=== PATIENT | female | born 1960 | race Native Hawaiian/Other Pacific Islander ===

== ENCOUNTER 2017-03-21 08:05 | Day surgery (SDC) | payer MEDICARE, BC, MEDICAID ==
[2017-03-19 12:29] VITALS: BMI 26.9
[2017-03-21 08:41] LABS: BASO # 0.02 K/mm3 (0.0-2.0); BASO % 0.5 % (0.0-3.0); EOS # 0.2 (0.0-0.7); EOS % 3.5 % (1.5-5.0); GRAN # 2.8 (1.4-6.5); HEMOGLOBIN 11.7 g/dL (12.0-16.0); LYMPH % 23.6 % (22.0-35.0); MEAN CELL VOLUME 99.2 fl (80.0-105.0); MEAN CORPUSCULAR HEMOGLOBIN 31.2 pg (25.0-35.0); MEAN CORPUSCULAR HGB CONC 31.5 g/dl (31.0-37.0); MEAN PLATELET VOLUME 11.6 fl (7.0-11.0); MONO # 0.3 (0.1-0.6); MONO % 6.4 % (1.0-6.0); RBC 3.75 10^6/uL (3.5-6.1); RED CELL DISTRIBUTION WIDTH 15.9 % (11.5-14.5); WHITE BLOOD COUNT 4.2 10^3/ul (4.5-11.0)
[2017-03-21 08:50] LABS: INR 0.95 (0.93-1.08); PROTHROMBIN TIME 10.9 SECONDS (9.4-12.5)
[2017-03-21 08:51] VITALS: RESP 18
[2017-03-21] MEDS ORDERED: Lidocaine 2% Inj (20ml) ONE (09:04)
[2017-03-21] MEDS ORDERED: Midazolam 2 MG/2 ML VIAL ONE ×2 (09:05→10:22)
[2017-03-21] MEDS ORDERED: HEPARIN SODIUM/NS 2,000 ML IV ONE (09:06)
[2017-03-21] MEDS ORDERED: Nitroglycerin 50mg in D5W 50 MG/250 ML BOTTLE IV ONE (09:06)
[2017-03-21 09:10] LABS: CALCIUM 10.2 mg/dL (8.4-10.5)
[2017-03-21 11:46] VITALS: TEMP 97.4
[2017-03-21 12:11] VITALS: BP 141/69; PULSE 60; O2SAT 97
--- NOTE | 2017-03-21 18:55 | VASCULAR ---
PROCEDURE: 1. Left upper extremity AV fistula angiogram. 2. Anus angioplasty HISTORY: End-stage renal disease. Malfunctioning AV access PHYSICIAN(S): Shun Abbott MD. TECHNIQUE: The relative risks and indications of the procedure were explained to the patient and consent obtained. The patient was placed supine on the angiography table and the left arm prepped and draped in usual sterile fashion. Conscious sedation and monitoring provided throughout the procedure by a nurse. A preliminary sonography of the anastomosis was performed. Revealed a widely patent left radial-cephalic anastomosis. The left arm AV fistula was punctured near the wrist in an antegrade direction under ultrasound guidance with a micropuncture set. A 5 Grenadian catheter was placed. An overlapping left upper extremity AV fistula angiogram was performed. Central venous imaging was obtained. A 6 Grenadian sheath was placed at the puncture site. The stenoses within the left cephalic vein stents were easily crossed with a 0.035 glidewire. Exchange is made for 0.035 Clark wire. The stenoses in the left cephalic vein within the stents and left forearm were dilated with an 8 mm balloon. A good angiographic result was obtained. The sheath was removed and hemostasis obtained. FINDINGS: The left distal radial anastomosis is patent on duplex sonography. Two pseudoaneurysm seen in the proximal left cephalic vein near the wrist. Overlapping stents are noted left cephalic vein in the forearm. Significant stenoses within the stent and at the distal end of the stent are noted. Fistula drains via the left basilic veins. The left cephalic vein is small in the upper arm. Central veins are widely patent. IMPRESSION: 1. Recurrent stenoses within the stents in the left forearm. 2. Successful dilatation with 8 mm balloons. No additional stents were needed 3. Widely patent central veins. 4. Widely patent anastomosis by ultrasound evaluation
== END 2017-03-21 12:20 | disposition home or self-care (01) ==
LOC: SDSVAS 08:05
PROVIDERS: ATTEND Radiology Vascular & Interventional Radiology
DX: T82.856A Stenosis of peripheral vascular stent, initial encounter (principal); I13.2 Hypertensive heart and chronic kidney disease with heart failure and with stage 5 chronic kidney disease, or end stage renal disease; N18.6 End stage renal disease; I50.9 Heart failure, unspecified; E07.9 Disorder of thyroid, unspecified; Y84.8 Other medical procedures as the cause of abnormal reaction of the patient, or of later complication, without mention of misadventure at the time of the procedure
CPT/HCPCS: 36415; 36902; 80048; 85025; 85610; 85730; 99152; C1725; C1769 ×2; C1894; J1644 ×2; J2250; J2405; J3010; J7040

== ENCOUNTER 2017-06-17 12:13 | Emergency (ER) | payer MEDICARE, MEDICAID ==
[2017-06-17 13:11] VITALS: BMI 26.6
[2017-06-17 13:16] VITALS: RESP 18; TEMP 98
--- NOTE | 2017-06-17 13:44 | ED PDOC ---
Arrival/HPI - General Chief Complaint: Headache Time Seen by Provider: 06/17/17 12:15 Historian: Patient - History of Present Illness Narrative History of Present Illness (Text): 06/17/17 13:38 57yo female with PMhx of ESRD, hypertension who present with complaint of right sided occipital headache x one week. States headache is temporary relieved with Tylenol at home. She denies photophobia, dizziness, focal weakness, nausea, vomiting, focal weakness, slurred speech, visual changes, any other complaint. Past Medical History - Provider Review Nursing Documentation Reviewed: Yes - Infectious Disease Hx of Infectious Diseases: None - Tetanus Immunization Tetanus Immunization: Unknown - Reproductive Menopause: Yes - Cardiac Hx Pacemaker: No - Pulmonary Hx Respiratory Disorders: No - Neurological Hx Paralysis: No - HEENT Hx HEENT Disorder: No - Renal Hx Renal Disorder: Yes Hx Dialysis: Yes Date of Last Dialysis Treatment: 06/17/17 - Endocrine/Metabolic Hx Endocrine Disorders: No - Hematological/Oncological Hx Blood Transfusions: No Hx Blood Transfusion Reaction: No - Integumentary Hx Dermatological Disorder: No - Musculoskeletal/Rheumatological Hx Musculoskeletal Disorders: No - Gastrointestinal Hx Gastrointestinal Disorders: No - Genitourinary/Gynecological Hx Genitourinary Disorders: No - Psychiatric Hx Emotional Abuse: No Hx Physical Abuse: No Hx Substance Use: No - Anesthesia Hx Anesthesia Reactions: No Hx Malignant Hyperthermia: No - Suicidal Assessment Feels Threatened In Home Enviroment: No Family/Social History - Physician Review Nursing Documentation Reviewed: Yes Family/Social History: Unknown Family HX Smoking Status: Never Smoked Hx Alcohol Use: No Hx Substance Use: No Allergies/Home Meds Allergies/Adverse Reactions: Allergies No Known Allergies Allergy (Verified 05/09/15 09:02) Home Medications: Home Meds Medication Instructions Recorded Confirmed Metoprolol Tartrate 25 mg PO DAILY 05/09/15 06/17/17 Ezetimibe/Simvastatin [Vytorin 10 - 40 mg PO DAILY 03/08/16 06/17/17 10-40 mg Tablet] Folic Acid 1 mg PO DAILY 03/08/16 06/17/17 Levothyroxine Sodium [Unithroid] 75 mcg PO DAILY 03/08/16 06/17/17 hydrALAZINE [Apresoline] 10 mg PO TID 03/08/16 06/17/17 Ergocalciferol (Vitamin D2) 50,000 unit PO SAT 03/19/17 06/17/17 [Vitamin D2] Lisinopril [Zestril] 10 mg PO DAILY 03/19/17 06/17/17 Calcium Acetate [Phoslo] 667 mg PO TID 06/17/17 06/17/17 Review of Systems - Physician Review All systems were reviewed & negative as marked: Yes - Review of Systems Constitutional: Normal Eyes: Normal ENT: Normal Respiratory: Normal Cardiovascular: Normal Gastrointestinal: Normal Genitourinary Female: Normal Musculoskeletal: Normal Skin: Normal Neurological: Headache. absent: Dizziness, Focal Weakness Endocrine: Normal Hemo/Lymphatic: Normal Psychiatric: Normal Physical Exam Vital Signs Reviewed: Yes Vital Signs Temp Pulse Resp BP Pulse Ox 06/17/17 14:51 66 18 139/63 99 06/17/17 13:15 98.0 F 68 18 162/96 H 100 Temperature: Afebrile Blood Pressure: Normal Pulse: Regular Respiratory Rate: Normal Appearance: Positive for: Well-Appearing, Non-Toxic, Comfortable Pain Distress: None Mental Status: Positive for: Alert and Oriented X 3 - Systems Exam Head: Present: Atraumatic, Normocephalic Pupils: Present: PERRL Extroacular Muscles: Present: EOMI Conjunctiva: Present: Normal Mouth: Present: Moist Mucous Membranes Neck: Present: Normal Range of Motion Respiratory/Chest: Present: Clear to Auscultation, Good Air Exchange. No: Respiratory Distress, Accessory Muscle Use Cardiovascular: Present: Regular Rate and Rhythm, Normal S1, S2. No: Murmurs Abdomen: No: Tenderness, Distention, Peritoneal Signs Back: Present: Normal Inspection Upper Extremity: Present: Normal Inspection. No: Cyanosis, Edema Lower Extremity: Present: Normal Inspection. No: Edema Neurological: Present: GCS=15, CN II-XII Intact, Speech Normal, Motor Func Grossly Intact, Normal Sensory Function, Normal Cerebellar Funct, Norm Deep Tendon Reflexes, Gait Normal, Memory Normal, Normal 2Pt Descrimination, Other Skin: Present: Warm, Dry, Normal Color. No: Rashes Psychiatric: Present: Alert, Oriented x 3, Normal Insight, Normal Concentration Medical Decision Making ED Course and Treatment: 06/17/17 19:27 PT in ED for stated history. She was neurologically intact and hemodynamically stable in ED. she was noted laughing with her daughter. Head CT - Negative Result was DW the pt and she was re referred to Neuro. - RAD Interpretation Radiology Orders: 06/17/17 13:10 HEAD W/O CONTRAST [CT] Stat - Medication Orders Current Medication Orders: Discontinued Medications Acetaminophen (Tylenol 325mg Tab) 650 mg PO STAT STA Stop: 06/17/17 13:11 Last Admin: 06/17/17 13:32 Dose: 650 mg [facility] Pain/Vitals Document 06/17/17 13:32 SZA (Rec: 06/17/17 13:32 SZA [id number]) Pain Reassessment Is This A Pain ReAssessment? No Sleep Is patient sleeping during reassessment? No Presence of Pain Presence of Pain Yes Pain Scale Used Pain Scale Used Numeric Location Intensity 8 Scale Used Numeric Re-Assess: [facility] Pain/Vitals Document 06/17/17 14:32 SZA (Rec: 06/17/17 14:54 SZA [id number]) Pain Reassessment Is This A Pain ReAssessment? Yes Sleep Is patient sleeping during reassessment? Yes Pain Scale Used Pain Scale Used Numeric Location Intensity 3 Scale Used Numeric Disposition/Present on Arrival - Present on Arrival Any Indicators Present on Arrival: No History of DVT/PE: No History of Uncontrolled Diabetes: No Urinary Catheter: No History of Decub. Ulcer: No History Surgical Site Infection Following: None - Disposition Have Diagnosis and Disposition been Completed?: Yes Diagnosis: Headache Disposition: HOME/ ROUTINE Disposition Time: 14:10 Patient Plan: Discharge Condition: STABLE Discharge Instructions (ExitCare): Headache, Adult Additional Instructions: Follow up with your doctor/Neurologist Return to ED for any new or worsening symptoms Referrals: Jose Dobbs MD [Primary Care Provider] - Follow up with primary Jameson Araujo MD [Staff Provider] - Follow up with primary Forms: [employer] (Spanish)
--- NOTE | 2017-06-17 14:05 | CT ---
PROCEDURE: CT HEAD WITHOUT CONTRAST. HISTORY: headache COMPARISON: None available. TECHNIQUE: Axial computed tomography images were obtained through the head/brain without intravenous contrast. Radiation dose: Total exam DLP = 865 mGy-cm. This CT exam was performed using one or more of the following dose reduction techniques: Automated exposure control, adjustment of the mA and/or kV according to patient size, and/or use of iterative reconstruction technique. FINDINGS: HEMORRHAGE: No intracranial hemorrhage. BRAIN: No mass effect or edema. No atrophy or chronic microvascular ischemic changes. VENTRICLES: Unremarkable. No hydrocephalus. CALVARIUM: Unremarkable. PARANASAL SINUSES: Unremarkable as visualized. No significant inflammatory changes. MASTOID AIR CELLS: Unremarkable as visualized. No inflammatory changes. OTHER FINDINGS: None. IMPRESSION: No acute findings
[2017-06-17 14:52] VITALS: BP 139/63; PULSE 66; O2SAT 99
== END 2017-06-17 14:56 | disposition home or self-care (01) ==
LOC: ED 12:13
DX: R51 Headache (principal); I12.0 Hypertensive chronic kidney disease with stage 5 chronic kidney disease or end stage renal disease; N18.6 End stage renal disease; Z99.2 Dependence on renal dialysis

== ENCOUNTER 2017-09-22 20:20 | Emergency (ER) | payer MEDICARE, MEDICAID ==
[2017-09-22 20:21] VITALS: BMI 26.6
--- NOTE | 2017-09-22 20:24 | ED PDOC ---
Arrival/HPI - General Time Seen by Provider: 09/22/17 20:23 Historian: Patient - History of Present Illness Narrative History of Present Illness (Text): 09/22/17 20:50 57 year old female, whose PMH includes hypertension and renal disorder (on dialysis M,W,F), who presents to the emergency department complaining of shortness of breath since 2 days. Patient reports she used to get dialysis at [facility] where they would give a dose of 2.5 L and now with the new company it has changed to 1.5 L. Patient reports this has given her intermittent trouble breathing. Patient denies chest pain, dizziness, hematuriam , abdominal pain, nausea, vomiting, diarrhea, or other complaints. PMD: Dr. Dobbs Urologist: Dr. Dahl Time/Duration: < week Symptom Onset: Gradual Symptom Course: Unchanged Context: Home Past Medical History - Provider Review Nursing Documentation Reviewed: Yes - Infectious Disease Hx of Infectious Diseases: None - Tetanus Immunization Tetanus Immunization: Unknown - Cardiac Hx Pacemaker: No - Pulmonary Hx Respiratory Disorders: No - Neurological Hx Paralysis: No - HEENT Hx HEENT Disorder: No - Renal Hx Renal Disorder: Yes Hx Dialysis: Yes Date of Last Dialysis Treatment: 06/17/17 - Endocrine/Metabolic Hx Endocrine Disorders: No - Hematological/Oncological Hx Blood Transfusions: No Hx Blood Transfusion Reaction: No - Integumentary Hx Dermatological Disorder: No - Musculoskeletal/Rheumatological Hx Musculoskeletal Disorders: No - Gastrointestinal Hx Gastrointestinal Disorders: No - Genitourinary/Gynecological Hx Genitourinary Disorders: No - Psychiatric Hx Emotional Abuse: No Hx Physical Abuse: No Hx Substance Use: No - Anesthesia Hx Anesthesia Reactions: No Hx Malignant Hyperthermia: No - Suicidal Assessment Feels Threatened In Home Enviroment: No Family/Social History - Physician Review Nursing Documentation Reviewed: Yes Family/Social History: Unknown Family HX Smoking Status: Never Smoked Hx Alcohol Use: No Hx Substance Use: No Allergies/Home Meds Allergies/Adverse Reactions: Allergies No Known Allergies Allergy (Verified 09/22/17 20:30) Home Medications: Home Meds Medication Instructions Recorded Confirmed Metoprolol Tartrate 25 mg PO DAILY 05/09/15 09/22/17 Ezetimibe/Simvastatin [Vytorin 10 - 40 mg PO DAILY 03/08/16 09/22/17 10-40 mg Tablet] Folic Acid 1 mg PO DAILY 03/08/16 09/22/17 Levothyroxine Sodium [Unithroid] 75 mcg PO DAILY 03/08/16 09/22/17 hydrALAZINE [Apresoline] 10 mg PO TID 03/08/16 09/22/17 Ergocalciferol (Vitamin D2) 50,000 unit PO SAT 03/19/17 09/22/17 [Vitamin D2] Lisinopril [Zestril] 10 mg PO DAILY 03/19/17 09/22/17 Calcium Acetate [Phoslo] 667 mg PO TID 06/17/17 09/22/17 Review of Systems - Review of Systems Constitutional: absent: Fevers ENT: absent: Sinus Congestion Respiratory: SOB. absent: Cough Cardiovascular: absent: Chest Pain Gastrointestinal: absent: Abdominal Pain, Vomiting Genitourinary Female: absent: Dysuria, Hematuria Musculoskeletal: absent: Back Pain Skin: absent: Rash Neurological: absent: Headache, Dizziness Endocrine: absent: Diaphoresis Physical Exam Vital Signs Reviewed: Yes Vital Signs Temp Pulse Resp BP Pulse Ox 09/22/17 21:45 69 18 173/88 H 98 09/22/17 21:05 178/81 H 09/22/17 20:25 98.7 F 113 H 19 178/81 H 98 Temperature: Afebrile Blood Pressure: Hypertensive Pulse: Tachycardic Respiratory Rate: Normal Appearance: Positive for: Well-Appearing, Non-Toxic, Comfortable Pain Distress: None Mental Status: Positive for: Alert and Oriented X 3 - Systems Exam Head: Present: Atraumatic, Normocephalic Pupils: Present: PERRL Extroacular Muscles: Present: EOMI Conjunctiva: Present: Normal Respiratory/Chest: Present: Rales (trace of crackles at the bases ). No: Clear to Auscultation, Respiratory Distress, Accessory Muscle Use, Decreased Breath Sounds, Retracting, Rhonchi Cardiovascular: Present: Regular Rate and Rhythm, Normal S1, S2. No: Murmurs Abdomen: Present: Normal Bowel Sounds. No: Tenderness, Distention, Peritoneal Signs, Rebound, Guarding Upper Extremity: Present: Normal Inspection, Normal ROM, Other (LT arm good thrill and bruit for fistula ). No: Cyanosis, Edema Neurological: Present: GCS=15, CN II-XII Intact, Speech Normal Skin: Present: Warm, Dry, Normal Color. No: Rashes Psychiatric: Present: Alert, Oriented x 3, Normal Insight, Normal Concentration Medical Decision Making ED Course and Treatment: 09/22/17 Impression: 57 year old female with trace of crackles at the bases and LT arm good thrill and bruit for fistula complaining of shortness of breath s/p change in dialysis. Differential Diagnosis included but are not limited to: fluid overload Plan: -- EKG -- Chest X-ray -- Labs -- Lasix -- Reassess and disposition Progress Notes: EKG: Ordered, reviewed, and independently interpreted the EKG. Rate : 75 BPM Rhythm : NSR Interpretation : diffused T-wave inversion. No difference from previous EKG Comparison : 03/08/16 09/22/17 21:45 CXR with pulmonary congestion and pleural effusions. Labs and Xray results discussed with patient and daughter. The patient does not want to be transferred to [facility] and instead has decided to get dialysis tomorrow. Patient declines admission, and wishes to leave the Emergency Department. This action is against my medical advice to the patient and the decision was made with informed refusal. The patient was told that admission is necessary and a full explanation of the rationale was given. The risks of leaving were explained to the patient and include, but are not limited to, worsening of known or currently unknown conditions, permanent disability and from undiagnosed or untreated conditions The patient has the capacity to make this informed decision and understands the clinical situation and my explanation of the risks of leaving. The patient voluntarily accepts these risks, and a signed AMA form documenting our conversation was obtained. The patient was given the opportunity to ask questions and reconsider. The patient was encouraged to return to the Emergency Department at any time for further care. - Lab Interpretations Lab Results: 09/22/17 20:55 09/22/17 20:55 Lab Results 09/22/17 20:55: Sodium 140, Potassium 5.3 H, Chloride 101, Carbon Dioxide 28, Anion Gap 16, BUN 64 H, Creatinine 8.6 H* D, Est GFR ( Amer) 6, Est GFR ( Non-Af Amer) 5, Random Glucose 148 H, Calcium 10.3, Magnesium 3.8 H, Total Bilirubin 0.6, AST 26, ALT 33, Alkaline Phosphatase 76, Lactate Dehydrogenase 373, Total Creatine Kinase 45, Troponin I 0.03, NT-Pro-B Natriuret Pep 50147 H, Total Protein 5.7 L, Albumin 3.3, Globulin 2.4, Albumin/Globulin Ratio 1.4 09/22/17 20:55: WBC 5.5 D, RBC 3.18 L, Hgb 9.9 L, Hct 31.4 L, MCV 98.7, MCH 31.1, MCHC 31.5, RDW 16.1 H, Plt Count 131, MPV 11.4 H, Gran % 75.5 H, Lymph % ( Auto) 14.4 L, Wood % (Auto) 7.9 H, Eos % (Auto) 2.0, Baso % (Auto) 0.2, Gran # 4.13, Lymph # (Auto) 0.8 L, Wood # (Auto) 0.4, Eos # (Auto) 0.1, Baso # (Auto) 0.01 I have reviewed the lab results: Yes - RAD Interpretation Radiology Orders: 09/22/17 20:52 CHEST PORTABLE [RAD] Stat Boiler Or Engine Operator: Radiologist - EKG Interpretation Interpreted by ED Physician: Yes Type: 12 lead EKG - Medication Orders Current Medication Orders: Discontinued Medications Furosemide (Lasix) 40 mg IVP STAT STA Stop: 09/22/17 20:53 Last Admin: 09/22/17 21:05 Dose: 40 mg MAR Blood Pressure Document 09/22/17 21:05 CNR (Rec: 09/22/17 21:06 CNR [id number]) Blood Pressure Blood Pressure (100/60-150/90) 178/81 IVP Administration Document 09/22/17 21:05 CNR (Rec: 09/22/17 21:06 CNR [id number]) Charges for Administration # of IVP Administrations 1 - Scribe Statement The provider has reviewed the documentation as recorded by the Jacinto Dela Cruz Provider Scribe Attestation: All medical record entries made by the Scribe were at my direction and personally dictated by me. I have reviewed the chart and agree that the record accurately reflects my personal performance of the history, physical exam, medical decision making, and the department course for this patient. I have also personally directed, reviewed, and agree with the discharge instructions and disposition. Disposition/Present on Arrival - Present on Arrival Any Indicators Present on Arrival: No History of DVT/PE: No History of Uncontrolled Diabetes: No Urinary Catheter: No History Surgical Site Infection Following: None - Disposition Have Diagnosis and Disposition been Completed?: Yes Diagnosis: ESRD needing dialysis Disposition: AGAINST MEDICAL ADVICE Disposition Time: 22:00 Patient Plan: Other Condition: GOOD Discharge Instructions (ExitCare): End Stage Kidney Disease (DC) Additional Instructions: ELIAS CHAVARRIA, thank you for letting us take care of you today. Your provider was Bruce Montiel DO and you were treated for TROUBLE BREATHING. The emergency medical care you received today was directed at your acute symptoms. If you were prescribed any medication, please fill it and take as directed. It may take several days for your symptoms to resolve. Return to the Emergency Department if your symptoms worsen, do not improve, or if you have any other problems. Please contact your doctor or call one of the physicians/clinics you have been referred to that are listed on the Patient Visit Information form that is included in your discharge packet. Bring any paperwork you were given at discharge with you along with any medications you are taking to your follow up visit. Our treatment cannot replace ongoing medical care by a primary care provider outside of the emergency department. Thank you for allowing the [facility] team to be part of your care today. If you had an X-Ray or CT scan: A Radiologist will review the ED reading if any change in treatment is needed we will contact you. If you had a blood, urine, or wound culture: It will take several days for the results, if any change in treatment is needed we will contact you. If you had an STI test: It will take 48 hours for the results. Please call after 1 week if you have not heard back. Referrals: Deisy Tidwell MD [Staff Provider] - Follow up with primary Jose Dobbs MD [Staff Provider] - Follow up with primary Forms: [employer] (Chilean)
[2017-09-22 20:30] VITALS: TEMP 98.7; O2SAT 98
[2017-09-22 21:11] LABS: BASO # 0.01 K/mm3 (0.0-2.0); BASO % 0.2 % (0.0-3.0); EOS # 0.1 (0.0-0.7); GRAN # 4.13 (1.4-6.5); GRAN % 75.5 % (50.0-68.0); HEMOGLOBIN 9.9 g/dL (12.0-16.0); LYMPH # 0.8 (1.2-3.4); LYMPH % 14.4 % (22.0-35.0); MEAN CELL VOLUME 98.7 fl (80.0-105.0); MEAN CORPUSCULAR HEMOGLOBIN 31.1 pg (25.0-35.0); MEAN CORPUSCULAR HGB CONC 31.5 g/dl (31.0-37.0); MEAN PLATELET VOLUME 11.4 fl (7.0-11.0); MONO # 0.4 (0.1-0.6); MONO % 7.9 % (1.0-6.0); RBC 3.18 10^6/uL (3.5-6.1); RED CELL DISTRIBUTION WIDTH 16.1 % (11.5-14.5); WHITE BLOOD COUNT 5.5 10^3/ul (4.5-11.0)
[2017-09-22 21:37] LABS: TROPONIN I 0.03 ng/mL
[2017-09-22 21:39] LABS: ALB/GLOB RATIO 1.4 (1.1-1.8); ALBUMIN 3.3 g/dL (3.0-4.8); CALCIUM 10.3 mg/dL (8.4-10.5)
[2017-09-22 21:47] VITALS: BP 173/88; PULSE 69; RESP 18
--- NOTE | 2017-09-23 08:28 | CARD ---
APPROVED REPORT EKG Measurement Heart [id number] <Conclusion> Normal sinus rhythm LVH IVCD STTW changes c/w ischemia Prolonged QTc Less ST depression c/w ECG 03/08/16
--- NOTE | 2017-09-23 10:17 | RAD ---
HISTORY: esrd/sob COMPARISON: No prior. FINDINGS: Study is slightly limited by patient rotation to the right LUNGS: Mild pulmonary venous congestive changes felt present likely due to fluid overload given the patient's history of ESRD. There are also small bilateral effusions PLEURA: As above. No pneumothorax apparent. CARDIOVASCULAR: Heart appears enlarged. Aorta ectatic and uncoiled. OSSEOUS STRUCTURES: No significant abnormalities. VISUALIZED UPPER ABDOMEN: Normal. OTHER FINDINGS: None. IMPRESSION: Mild pulmonary venous congestive changes felt present likely due to fluid overload given the patient's history of ESRD. There are also small bilateral effusions
== END 2017-09-22 22:03 | disposition left against medical advice (07) ==
LOC: ED 20:20
DX: I12.0 Hypertensive chronic kidney disease with stage 5 chronic kidney disease or end stage renal disease (principal); N18.6 End stage renal disease; Z99.2 Dependence on renal dialysis
CPT/HCPCS: 71045; 80053; 82550; 83615; 83735; 83880; 84484; 85025; 93005; 96374; 99284; J1940

== ENCOUNTER 2017-10-28 09:09 | Inpatient (IN) | payer MEDICARE, MEDICAID ==
--- NOTE | 2017-10-28 09:55 | ED PDOC ---
Arrival/HPI - General Chief Complaint: Shortness Of Breath Time Seen by Provider: 10/28/17 09:20 Historian: Patient - History of Present Illness Narrative History of Present Illness (Text): 10/28/17 09:52 57-year-old female with a history of hypertension and end-stage renal disease on dialysis(M,W,F) presents today with generalized fatigue and shortness of breath when laying flat. Patient states that she has been having a dry cough for about a month now and was seen by her primary care physician and had a chest x-ray recently. Patient denies fevers or chills at home. Patient states she completed dialysis today and then came to the emergency room for evaluation. Patient states after dialysis she feels as if her breathing has improved. She is complaining of some upper back pain. She denies chest pain. Patient denies shortness of breath with ambulation. Patient denies abdominal pain. No nausea or vomiting. She denies dizziness. Patient states she feels as if she's been losing weight recently. No other complaints Time/Duration: Other (1 month of cough ) Symptom Onset: Gradual Symptom Course: Worsening Quality: Aching Past Medical History - Provider Review Nursing Documentation Reviewed: Yes - Travel History Have you recently traveled outside [place] w/in the past 3 mons?: No - Infectious Disease Hx of Infectious Diseases: None - Tetanus Immunization Tetanus Immunization: Unknown - Cardiac Hx Hypertension: Yes Hx Pacemaker: No - Pulmonary Hx Respiratory Disorders: No - Neurological Hx Paralysis: No - HEENT Hx HEENT Disorder: No - Renal Hx Renal Disorder: Yes Hx Dialysis: Yes (MWF) Date of Last Dialysis Treatment: 06/17/17 - Endocrine/Metabolic Hx Endocrine Disorders: No - Hematological/Oncological Hx Blood Transfusions: No Hx Blood Transfusion Reaction: No - Integumentary Hx Dermatological Disorder: No - Musculoskeletal/Rheumatological Hx Musculoskeletal Disorders: No - Gastrointestinal Hx Gastrointestinal Disorders: No - Genitourinary/Gynecological Hx Genitourinary Disorders: No - Psychiatric Hx Emotional Abuse: No Hx Physical Abuse: No Hx Substance Use: No - Surgical History Hx Arteriovenous Shunt: Yes (left arm) Other/Comment: abd sx 2006 - Anesthesia Hx Anesthesia: Yes Hx Anesthesia Reactions: No Hx Malignant Hyperthermia: No - Suicidal Assessment Feels Threatened In Home Enviroment: No Family/Social History - Physician Review Nursing Documentation Reviewed: Yes Family/Social History: Unknown Family HX Smoking Status: Never Smoked Hx Alcohol Use: No Hx Substance Use: No Allergies/Home Meds Allergies/Adverse Reactions: Allergies No Known Allergies Allergy (Verified 09/22/17 20:30) Home Medications: Home Meds Medication Instructions Recorded Confirmed Metoprolol Tartrate 25 mg PO DAILY 05/09/15 10/28/17 Ezetimibe/Simvastatin [Vytorin 10 - 40 mg PO DAILY 03/08/16 10/28/17 10-40 mg Tablet] Folic Acid 1 mg PO DAILY 03/08/16 10/28/17 Levothyroxine Sodium [Unithroid] 75 mcg PO DAILY 03/08/16 10/28/17 hydrALAZINE [Apresoline] 10 mg PO TID 03/08/16 10/28/17 Ergocalciferol (Vitamin D2) 50,000 unit PO SAT 03/19/17 10/28/17 [Vitamin D2] Lisinopril [Zestril] 10 mg PO DAILY 03/19/17 10/28/17 Calcium Acetate [Phoslo] 667 mg PO TID 06/17/17 10/28/17 Review of Systems - Review of Systems Constitutional: Fatigue. absent: Fevers Respiratory: SOB, Cough. absent: Sputum, Wheezing Cardiovascular: absent: Chest Pain, Palpitations Gastrointestinal: absent: Abdominal Pain, Constipation, Diarrhea, Nausea, Vomiting Musculoskeletal: Back Pain. absent: Arthralgias, Neck Pain Skin: absent: Rash, Pruritis Neurological: absent: Headache, Dizziness Psychiatric: absent: Anxiety, Depression Physical Exam Vital Signs Reviewed: Yes Vital Signs Temp Pulse Resp BP Pulse Ox 10/28/17 11:26 74 18 156/84 H 96 10/28/17 09:30 20 97 10/28/17 09:10 98.4 F 69 20 152/78 H 95 Temperature: Afebrile Blood Pressure: Normal Pulse: Regular Respiratory Rate: Normal Appearance: Positive for: Well-Appearing, Non-Toxic, Comfortable Pain Distress: None Mental Status: Positive for: Alert and Oriented X 3 - Systems Exam Head: Present: Atraumatic Mouth: Present: Moist Mucous Membranes Neck: Present: Normal Range of Motion Respiratory/Chest: Present: Good Air Exchange, Decreased Breath Sounds. No: Clear to Auscultation, Respiratory Distress, Accessory Muscle Use Cardiovascular: Present: Regular Rate and Rhythm. No: Tachycardic Abdomen: No: Tenderness, Distention, Rebound, Guarding Back: Present: Normal Inspection. No: Midline Tenderness, Paraspinal Tenderness Lower Extremity: Present: Normal ROM. No: Edema Neurological: Present: GCS=15, Speech Normal Skin: Present: Warm, Dry, Normal Color. No: Rashes Psychiatric: Present: Alert, Oriented x 3 Medical Decision Making ED Course and Treatment: 10/28/17 10:00 57yr old female with ESRD on dialysis with cough x 1 month with fatigue and SOB while laying flat. cbc wnl cmp wnl trop 0.04 ekg; normal sinus rhythm at [address] elevations normal axis and QTC 510 cxr: cardiomegaly with worsening chf 10/28/17 11:[address] calix who saw patient at bedside. case discussed with dr. grewal; will dialyze again tomorrow Patient reassessment: Patient resting comfortably in the emergency room with stable vital signs. In no acute distress all aspects of this case were discussed the attending of record. Impression: CHF, end-stage renal disease on dialysis Admitted to telemetry - Lab Interpretations Lab Results: 10/28/17 09:50 10/28/17 09:50 Lab Results 10/28/17 09:50: WBC 5.4, RBC 3.55, Hgb 11.0 L, Hct 34.6 L, MCV 97.5, MCH 31.0, MCHC 31.8, RDW 16.2 H, Plt Count 130, MPV 11.9 H, Gran % 71.4 H, Lymph % (Auto) 18.2 L, Chase % (Auto) 5.4, Eos % (Auto) 4.8, Baso % (Auto) 0.2, Gran # 3.85, Lymph # (Auto) 1.0 L, Chase # (Auto) 0.3, Eos # (Auto) 0.3, Baso # (Auto) 0.01 10/28/17 09:50: Sodium 138, Potassium 3.6, Chloride 95 L, Carbon Dioxide 37 H, Anion Gap 9 L, BUN 11, Creatinine 3.0 H, Est GFR ( Amer) 19, Est GFR (Non -Af Amer) 16, Random Glucose 94, Calcium 9.5, Total Bilirubin 0.8, AST 29, ALT 33, Alkaline Phosphatase 105, Lactate Dehydrogenase 442, Total Creatine Kinase 40, Troponin I 0.04 D, Total Protein 6.1, Albumin 3.6, Globulin 2.6, Albumin/ Globulin Ratio 1.4 - RAD Interpretation Radiology Orders: 10/28/17 09:39 CHEST PORTABLE [RAD] Stat Disposition/Present on Arrival - Present on Arrival Any Indicators Present on Arrival: No History of DVT/PE: No History of Uncontrolled Diabetes: No Urinary Catheter: No History of Decub. Ulcer: No History Surgical Site Infection Following: None - Disposition Have Diagnosis and Disposition been Completed?: Yes Diagnosis: CHF (congestive heart failure), ESRD (end stage renal disease) on dialysis Disposition: HOME/ ROUTINE Disposition Time: 11:41 Patient Plan: Admission Condition: FAIR Discharge Instructions (ExitCare): Heart Failure (ED) Referrals: Jose Calix MD [Primary Care Provider] - Follow up with primary Forms: [employer] (Ugandan)
[2017-10-28 10:03] LABS: BASO # 0.01 K/mm3 (0.0-2.0); BASO % 0.2 % (0.0-3.0); EOS # 0.3 (0.0-0.7); EOS % 4.8 % (1.5-5.0); GRAN # 3.85 (1.4-6.5); GRAN % 71.4 % (50.0-68.0); LYMPH % 18.2 % (22.0-35.0); MEAN CELL VOLUME 97.5 fl (80.0-105.0); MEAN CORPUSCULAR HGB CONC 31.8 g/dl (31.0-37.0); MEAN PLATELET VOLUME 11.9 fl (7.0-11.0); MONO # 0.3 (0.1-0.6); MONO % 5.4 % (1.0-6.0); RBC 3.55 10^6/uL (3.5-6.1); RED CELL DISTRIBUTION WIDTH 16.2 % (11.5-14.5); WHITE BLOOD COUNT 5.4 10^3/ul (4.5-11.0)
[2017-10-28 10:13] LABS: ALB/GLOB RATIO 1.4 (1.1-1.8); ALBUMIN 3.6 g/dL (3.0-4.8); CALCIUM 9.5 mg/dL (8.4-10.5)
[2017-10-28 10:24] LABS: TROPONIN I 0.04 ng/mL
--- NOTE | 2017-10-28 10:58 | RAD ---
Date of service: 10/28/2017 HISTORY: cough/sob/fatigue COMPARISON: 10/25/2017. FINDINGS: LUNGS: Progressive pulmonary vascular congestion. PLEURA: No significant pleural effusion identified, no pneumothorax apparent. CARDIOVASCULAR: Cardiomegaly. OSSEOUS STRUCTURES: No significant abnormalities. VISUALIZED UPPER ABDOMEN: Normal. OTHER FINDINGS: None. IMPRESSION: Cardiomegaly, worsening CHF.
[2017-10-28] MEDS ORDERED: Levothyroxine 75 MCG TAB PO SCH (12:00)
[2017-10-28] MEDS: Enoxaparin 30 mg Syringe SC SCH (12:20)
[2017-10-28 12:23] LABS: HDL CHOLESTEROL 69 mg/dL (29-60); INR 0.98; PARTIAL THROMBOPLASTIN TIME 32.6 Seconds (25.1-36.5); PROTHROMBIN TIME 11.3 SECONDS (9.4-12.5)
[2017-10-28 12:34] LABS: LDL CHOLESTEROL < 30 mg/dL (0-129); TROPONIN I 0.03 ng/mL
[2017-10-28 12:39] LABS: ARTERIAL BLOOD GAS HCO3 36.8 mmol/L (21-28); ARTERIAL BLOOD GAS HEMOGLOBIN 10.2 g/dL (11.7-17.4); ARTERIAL BLOOD GAS O2 CONTENT 13.3 ML/dl (15-23); ARTERIAL BLOOD GAS O2 SAT 95.2 % (95-98); ARTERIAL BLOOD GAS PCO2 44 mm/Hg (35-45); ARTERIAL BLOOD GAS PH 7.53 (7.35-7.45); ARTERIAL BLOOD GAS TCO2 38.2 mmol.L (22-28)
[2017-10-28 12:46] LABS: FREE T4 2.02 ng/dL (0.78-2.19); T4 11.5 ug/dL (5.5-11.0)
--- NOTE | 2017-10-28 13:18 | CARD ---
APPROVED REPORT Date of service: 10/28/2017 EKG Measurement Heart [id number] CO [id number] [id number] <Conclusion> Normal sinus rhythm Left ventricular hypertrophy with repolarization abnormality Prolonged QT Abnormal ECG
[2017-10-28] MEDS: Levalbuterol 0.63 MG/3 ML Inhal Soln UD IH SCH ×2 (14:43→19:50)
[2017-10-28] MEDS ORDERED: Levothyroxine 50 MCG TAB PO SCH (14:49)
[2017-10-28 16:55] VITALS: BMI 22.6
[2017-10-28 17:23] LABS: TROPONIN I 0.03 ng/mL
--- NOTE | 2017-10-28 17:40 | HP ---
Copied To: Jose Dobbs MD Attending MD: Jose Dobbs MD HISTORY OF PRESENT ILLNESS: The patient is a 57-year-old [place] female presented to the emergency room after dialysis complaining of increasing dyspnea on exertion, increasing shortness of breath, increasing orthopnea and PND. The patient was seen in the office 2 to 3 days ago for complaints of cough, not shortness of breath. The patient was sent for a chest x-ray which was negative for CHF, except patient's chest x-ray shows a small pleural effusion. At that time, the patient was empirically prescribed cough medicine with a followup given. Today, the patient came to the emergency room with complaints of shortness of breath, coughing, dyspnea on exertion, PND, orthopnea. The patient underwent dialysis today but her symptoms persisted, and the patient came to the emergency room for above. REVIEW OF SYSTEMS: Patient's 13-system review is positive for shortness of breath, dyspnea on exertion, orthopnea, PND, cough. CODE STATUS: Full code. LIVING WILL ADVANCE DIRECTIVE: None. ALLERGIES: NO KNOWN ALLERGIES. HEIGHT: 5 feet 2 inches. WEIGHT: 123. BODY MASS INDEX: 22.6. HOME MEDICATION: Hydralazine 25 mg three times a day, Lopressor 25 mg once a day, Zestril 10 mg daily, Synthroid 75 mcg daily, folic acid 1 mg daily, Vytorin 10/40 daily, vitamin D 50,000 units weekly, PhosLo 667 mg three times a day. SOCIAL HISTORY: Denies smoking. Denies alcohol. Denies drug use. Patient has a history of abdominal TB treated many years ago, history of abdominal surgery. FAMILY HISTORY: Not available. OCCUPATIONAL HISTORY: Disabled. PAST MEDICAL AND SURGICAL HISTORY: History of end-stage renal disease, hemodialysis dependent; history of hypertension, history of hyperlipidemia, history of hypothyroidism, history of congestive heart failure, history of hyperphosphatemia, history of systolic congestive heart failure, edema, history of left ventricular ejection fraction of 30%, history of diffuse dilated cardiomyopathy, history of umbilical hernia, history of hyperkalemia, history of anemia, history of bilateral renal cyst, history of moderate tricuspid regurgitation, history of abdominal TB, history of pancreatitis, history of septic shock, history of ascites, gastritis, gastroduodenitis, history of vitamin B12 deficiency, history of gastroesophageal reflux, 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 The patient's past medical history is also significant for history of acute exacerbation of bronchial asthma, bronchitis, bronchospasm, history of questionable community-acquired pneumonia, thrombocytopenia, leukopenia, history of atelectasis, history of coronary ischemic changes. PHYSICAL EXAMINATION: GENERAL: The patient was seen and examined in the emergency room in bed 8. The patient is lying in the bed with the patient's [id number] Jeffy at the bedside. VITAL SIGNS: T-max 98.4; pulse 74, 69; blood pressure 156/84, respirations 18, O2 sat 95% to 96%. HEENT: Head normocephalic, atraumatic. HEENT examination shows pinkish pale conjunctivae. Anicteric sclerae. No oropharyngeal lesion. NECK: No neck rigidity. CHEST: Kyphosis. LUNGS: Positive crackles, rales, rhonchi bilaterally with decreased air entry. CARDIOVASCULAR: S1 and S2, regular rhythm. Positive systolic murmur, left sternal border, right second intercostal space, left second intercostal space. Positive S4 and S3 gallop noted. ABDOMEN: Soft. Positive bowel sounds. Positive surgical scar of the abdominal surgery. No hepatosplenomegaly palpated. GENITALIA: Female. RECTAL: Examination is deferred. EXTREMITIES: Shows positive left upper extremity AV fistula, positive thrill. Lower extremity shows no pitting edema, no calf tenderness, no Homans sign. NEUROLOGIC: The patient is alert, awake, oriented x3. Cranial nerves II through XII grossly intact. Gait examination is not tested. Motor strength is 5/5 in upper and lower extremity. VASCULAR: Palpable pulses. DIAGNOSTIC DATA: Reviewed. WBC 5.4, hemoglobin and hematocrit are 11 and 34.6, platelet 130, granulocytes 72% segs. Sodium 138, potassium 3.6, chloride 95, CO2 of 37, anion gap 9, BUN 11, creatinine 3. LFTs are normal. Troponin 0.04. EKG was reviewed. Chest x-ray shows cardiomegaly with increased vascular marking and congestive heart failure. EKG done in the emergency room shows left ventricular hypertrophy changes with ST-T changes in lead I and II, aVF and V4 to V6. The patient was seen in the emergency room by the physician assistant professor of economics. The patient's government gauger was contacted by the physician assistant professor of economics. IMPRESSION: A 57-year-old female, on end-stage renal disease, hemodialysis dependent, three times a week via the left upper extremity fistula, comes in with increasing shortness of breath, dyspnea on exertion, PND, orthopnea and cough and also generalized fatigue and weakness. The patient underwent dialysis today, but her symptoms did not improve and the breathing did not improve, and she came to the emergency room. 1. Acute recurrent systolic congestive heart failure with worsening pulmonary vascular congestion and cardiomegaly. 2. History of dilated cardiomyopathy with ejection fraction of 25% to 30%. 3. Hypertensive cardiovascular disease with inferolateral coronary ischemic ST changes. 4. Hypertension. 5. Hypertensive end-stage renal disease. 6. Anemia. 7. History of hypothyroidism. 8. History of cardiac catheterization done in 2013, history of left ventricular ejection fraction of 25% to 30%. 9. History of hyperlipidemia. 10. History of end-stage renal disease, hemodialysis dependent via left upper extremity AV fistula. 11. History of pulmonary hypertension. PLAN: At this time, the patient will be admitted to telemetry. The patient has been ordered thyroid panel, lipid panel, serial cardiac enzymes, serial CPK, had PT/PTT ordered, room air ABG ordered, stat Cardiology and Nephrology consultation ordered. The patient is ordered hydralazine 10 mg three times a day, Drisdol 50,000 weekly, folic acid 1 mg p.o. daily, Lopressor 25 mg daily, PhosLo 667 mg three times a day, Synthroid 75 mcg daily, Zestril 10 mg daily. Repeat EKG ordered for the morning. Echo, M-mode with Doppler ordered. The patient is started on GI and DVT prophylaxis. The patient has been ordered aspirin 81 p.o. daily, Colace 100 mg three times a day, Ecotrin 81 mg daily. Heparin 5000 subcu every 8, Lovenox 40 mg subcu daily for DVT prophylaxis, MiraLax 17 g twice a day for constipation, Protonix 40 mg daily for GI prophylaxis. The patient started on Tessalon 200 three times a day for cough. The patient is started on Xopenex nebulizer, Zofran 4 IV every four p.r.n. The patient has been ordered TCU evaluation. Chest PT, incentive spirometry, oxygen 2 liters. The patient has been ordered head of the bed at 30 degrees. Out of bed to chair. [employer]. Occupational therapy, physical therapy, all ordered. At present, the patient's further management will be dependent upon the patient's clinical condition, hemodynamic status and as per the patient response to therapeutic intervention, as per the patient's diagnostic test results, and as per recommendation by all the physician involved in the care of the patient. In addition, the patient's condition, diagnosis, need for hospitalization, need for further diagnostic therapeutic intervention was discussed and explained to the patient and the patient's [id number] Jeffy at length. All questions and concerned answered to their satisfaction. Dictated and electronically signed, not read. Jose Dobbs MD
[2017-10-28 17:49] LABS: FOLATE > 20.0 ng/mL
[2017-10-28] MEDS: POLYETHYLENE GLYCOL 3350 17 GM/Dose PACKET PO SCH (18:19)
[2017-10-29] MEDS: Levalbuterol 0.63 MG/3 ML Inhal Soln UD IH SCH ×4 (03:33→19:46)
[2017-10-29] MEDS: Pantoprazole 40 mg EC Tab PO SCH (05:27)
[2017-10-29] MEDS ORDERED: Levothyroxine 50 MCG TAB PO SCH (06:00)
[2017-10-29 06:34] LABS: BASO # 0.01 K/mm3 (0.0-2.0); BASO % 0.3 % (0.0-3.0); EOS # 0.4 (0.0-0.7); GRAN # 1.8 (1.4-6.5); GRAN % 50.5 % (50.0-68.0); HEMOGLOBIN 9.8 g/dL (12.0-16.0); LYMPH # 1.1 (1.2-3.4); LYMPH % 29.4 % (22.0-35.0); MEAN CELL VOLUME 98.7 fl (80.0-105.0); MEAN CORPUSCULAR HEMOGLOBIN 30.9 pg (25.0-35.0); MEAN CORPUSCULAR HGB CONC 31.3 g/dl (31.0-37.0); MEAN PLATELET VOLUME 11.9 fl (7.0-11.0); MONO # 0.3 (0.1-0.6); MONO % 7.8 % (1.0-6.0); RBC 3.17 10^6/uL (3.5-6.1); RED CELL DISTRIBUTION WIDTH 16.7 % (11.5-14.5); WHITE BLOOD COUNT 3.6 10^3/ul (4.5-11.0)
[2017-10-29 07:23] LABS: ALB/GLOB RATIO 1.2 (1.1-1.8); ALBUMIN 2.6 g/dL (3.0-4.8); BILIRUBIN,DIRECT 0.2 mg/dL (0.0-0.4); CALCIUM 10.4 mg/dL (8.4-10.5)
--- NOTE | 2017-10-29 09:14 | CARD ---
APPROVED REPORT Date of service: 10/29/2017 EKG Measurement Heart [id number] AR 140P-15 [id number] <Conclusion> Normal sinus rhythm Left ventricular hypertrophy with repolarization abnormality Abnormal ECG
[2017-10-29] MEDS: POLYETHYLENE GLYCOL 3350 17 GM/Dose PACKET PO SCH ×2 (09:34→17:34)
[2017-10-29] MEDS: Enoxaparin 30 mg Syringe SC SCH (09:34)
--- NOTE | 2017-10-29 09:47 | CARD ---
APPROVED REPORT Date of service: 10/29/2017 EXAM: Two-dimensional and M-mode echocardiogram with Doppler and color Doppler. INDICATION 2D DIMENSIONS Left Atrium (2D)4.6 (1.6-4.0cm)IVSd1.1 (0.7-1.1cm) LVDd6.5 (3.9-5.9cm)PWd1.0 (0.7-1.1cm) LVDs5.7 (2.5-4.0cm)FS (%) 13.3 % LVEF (%)27.9 (>50%) M-Mode DIMENSIONS Aortic Root3.00 (2.2-3.7cm)Aortic Cusp Exc.1.50 (1.5-2.0cm) Aortic Valve AoV Peak Ovhxacoy448.0cm/[place] Peak GR.16mmHg Mitral Valve MV E Xvcmihng066.0cm/sMV E Peak Gr.117mmHgMV A Juegleuc80.3cm/s E/A ratio1.5 TDI Lateral E' Peak V6.29cm/sMedial E' Peak V4.85cm/sE/Lateral E'21.1 E/Medial E'27.4 Tricuspid Valve TR Peak Usyrczxy547cb/sRAP [id number] Peak Gr.61mmHg PRGG50sePn LEFT VENTRICLE The Left Ventricle is moderately dilated. There is normal left ventricular wall thickness. The systolic function is severely impaired. There is global hypokinesis of the left ventricle. The left ventricular diastolic function is normal. No left ventricle thrombus noted on this study. RIGHT VENTRICLE The right ventricle is normal size. There is normal right ventricular wall thickness. The right ventricular systolic function is normal. ATRIA The left atrium is moderately dilated. The right atrium is mildly dilated. AORTIC VALVE The aortic valve is mildly thickened. There is mild aortic regurgitation. There is no aortic valvular stenosis. MITRAL VALVE The mitral valve is mildly thickened. Mitral regurgitation is moderate. There is no mitral valve stenosis. TRICUSPID VALVE The tricuspid valve is normal in structure. There is moderate to severe tricuspid regurgitation. There is moderate to severe pulmonary hypertension. PULMONIC VALVE The pulmonary valve is normal in structure. There is no pulmonic valvular regurgitation. GREAT VESSELS The aortic root is normal in size. The IVC is normal in size and collapses >50% with inspiration. PERICARDIAL EFFUSION There is small left pleural effusion. <Conclusion> The Left Ventricle is moderately dilated. There is normal left ventricular wall thickness. The systolic function is severely impaired. There is global hypokinesis of the left ventricle. No left ventricle thrombus noted on this study. There is mild aortic regurgitation. Mitral regurgitation is moderate. There is moderate to severe tricuspid regurgitation. There is moderate to severe pulmonary hypertension.
--- NOTE | 2017-10-29 12:20 | CON ---
Copied To: Shun Rosa MD Attending MD: Shun Rosa MD DATE: 10/29/2017 CARDIOLOGY CONSULTATION: HISTORY: The patient is a 57-year-old woman who presents with progressive dyspnea. She has been dyspneic for the past month. She was found to be in CHF, which was treated aggressively with dialysis. The patient's past medical history also includes end-stage renal disease, hypertension. She denies previous myocardial infarction. Denies chest pain. SOCIAL HISTORY: The patient does not smoke. REVIEW OF SYSTEMS: Fourteen-point review of systems is reviewed in detail. Other than her dyspnea, there is no evidence for angina or ischemic disease. PHYSICAL EXAMINATION: VITAL SIGNS: Blood pressure is 159/97, the heart rate is in the 70s. NECK: Negative JVD. LUNGS: Decreased breath sounds without rales. HEART: Reveals S1, S2. EXTREMITIES: Without edema. LABORATORY DATA: EKG shows normal sinus rhythm with diffuse ST-T changes. Echocardiogram reveals an EF of 27%. Hemoglobin is 9.8. Chemistries: BUN and creatinine are 22 and 5. Troponins are negative x3. IMPRESSION: 1. Acute systolic congestive heart failure. 2. Dilated cardiomyopathy. 3. End-stage renal disease. 4. Abnormal EKG. 5. Hypertension. PLAN: Given these findings, the patient has high probability for CAD as the cause of her dilated cardiomyopathy. We will discuss with Dr. Dobbs about the possibility of cardiac catheterization. We will discuss it with the patient in detail. Shun Rosa MD
--- NOTE | 2017-10-29 14:58 | PN ---
Copied To: Jose Dobbs MD Attending MD: Jose Dobbs MD DATE: 10/29/2017 LOCATION: The patient was seen in room 260, bed 1. SUBJECTIVE: The patient is sitting up in the bed and receiving a nebulizer treatment. The patient states her breathing is significantly improved since yesterday. The patient states that she was able to sleep and the patient's symptoms of orthopnea and PND is less. According to the nurses' notes, no adverse events were documented. At present, the patient is seen sitting up in the bed. PHYSICAL EXAMINATION: VITAL SIGNS: Telemetry shows sinus rhythm. Heart rate in 60s, 70, 74, 78, T max is 98, blood pressure is 173/ 96, 159/97, 146/83, 141/80, 151/86, respirations 20, O2 sat is 96%-98% on oxygen. HEENT: The patient head examination, normocephalic, atraumatic. HEENT examination shows pinkish pale conjunctivae. Anicteric sclerae. No facial asymmetry. NECK: No neck rigidity. CHEST: Kyphosis. Positive decreased air entry noted. Positive rhonchi noted. Positive crackles noted bilaterally. CARDIOVASCULAR: S1, S2, regular rhythm. Positive systolic murmur in left sternal border, right second intercostal space, left second intercostal space. Positive S3, S4 gallop noted. ABDOMEN: Soft. Positive bowel sounds. o hepatosplenomegaly appreciated. No guarding. No rigidity. No rebound tenderness. GENITALIA: Female. RECTAL: Deferred. NEUROLOGIC: Cranial nerves II-XII grossly intact. Gait examination is independent. VASCULAR: Palpable pulses. Positive left upper extremity AV fistula, positive thrill noted. MUSCULOSKELETAL: Shows a body mass index of 23. Motor strength is 5/5 in the upper and lower extremity. PSYCHIATRIC: Negative. DIAGNOSTICS: On 10/29/2017, WBC 3.6, hemoglobin/hematocrit 9.8/31.3, platelet 122. Sodium 138, potassium 4.4, chloride 95, CO2 of 36, anion gap 12, BUN 22, creatinine 5, GFR 11, calcium 10.4, phosphorus 4.8, magnesium 2.9. LFTs are normal. Troponin, all three sets, 0.0, 0.03 and 0.04, total protein 4.7, albumin 2.6, cholesterol 115, LDL less than 30. Thyroxin was little elevated at 11.5. Synthroid dose was adjusted. Chest x-ray was reviewed. Repeat echocardiogram was done, results were reviewed. EKG from today reviewed. IMPRESSION AND PLAN: 1. Recurrent acute on chronic systolic congestive heart failure with history of dilated cardiomyopathy with worsening pulmonary vascular congestion and cardiomegaly. 2. Dilated cardiomyopathy with ejection fraction of 25-30%. 3. Hypertension. 4. End-stage renal disease, hemodialysis dependent, three times a week via the left upper extremity arteriovenous fistula. 5. Leukopenia and anemia. 6. Hypoxemia. 7. Hyperphosphatemia. 8. Hypermagnesemia. 9. Mild protein malnutrition and hypoalbuminemia. 10. History of vitamin B12 deficiency. 11. History of hypothyroidism. 12. Progressive and worsening congestive heart failure. 13. Pulmonary hypertension with elevated right ventricular systolic pressure of 71 mmHg. 14. Severely impaired left ventricular systolic function and moderately dilated left ventricle and left ventricular global hypokinesis. 15. Left and right atrial enlargement. 16. Mild aortic regurgitation. 17. Moderate mitral regurgitation. 18. Alzhlmnm-hy-puypvz tricuspid regurgitation and moderate to severe pulmonary hypertension. 19. Left ventricular hypertrophy and hypertensive cardiovascular disease. 20. History of abdominal tuberculosis. 21 Constipation. 22. Hypovitaminosis D. 23. Secondary hyperparathyroidism with hyperphosphatemia. 1. Acute recurrent systolic congestive heart failure with worsening pulmonary vascular congestion and cardiomegaly. 2. History of dilated cardiomyopathy with ejection fraction of 25% to 30%. 3. Hypertensive cardiovascular disease with inferolateral coronary ischemic ST changes. 4. Hypertension. 5. Hypertensive end-stage renal disease. 6. Anemia. 7. History of hypothyroidism. 8. History of cardiac catheterization done in 2013, history of left ventricular ejection fraction of 25% to 30%. 9. History of hyperlipidemia. 10. History of end-stage renal disease, hemodialysis dependent via left upper extremity AV fistula. 11. History of pulmonary hypertension. PLAN: At this time, the patient is to be continued on telemetry. The patient is awaiting Cardiology and Nephrology evaluation, TCU evaluation ordered. The patient's hydralazine is increased to 25 mg 3 times a day from 10 mg t.i.d. for optimization of blood pressure control. The patient is on Colace 100 mg three times a day, Drisdol 50,000 units weekly, Ecotrin 81 mg daily, folic acid 1 mg daily, Lopressor 25 mg daily, Lovenox 30 mg subcu daily, MiraLax 17 g twice a day, PhosLo 667 mg with meals, Protonix 40 mg daily, Synthroid decreased to 50 mcg daily from 75 mcg daily. The patient is on Tessalon Perles 200 three times a day, Tylenol p.r.n., Xopenex nebulizer 0.63 mg every 6-hour schedule. The patient is ordered lisinopril 10 mg daily, Zofran 4 mg IV every 4 hours. The patient has been ordered CT of the chest with contrast by Dr. Shun Rosa, the results of which are pending. Chest PT, incentive spirometry, oxygen 2 liters ordered, repeat EKG ordered. The patient is on renal diet, out of bed, MANOJ stockings, SCDs, occupational therapy and gait therapy and ambulation therapy ordered. The patient's condition was explained and discussed with the patient and the patient's [id number], Glo Casanova via the phone and all details discussed and explained to the patient and the patient's [id number] at length and all questions concerned answered to their satisfaction. I have advised the patient's daughter that the patient needs to be evaluated by Cardiology and Nephrology prior and once the patient is cleared by above subspecialty and if the patient's further diagnostic therapeutic interventions are negative, the patient will be considered for discharge soon. Dictated and electronically signed, not read. Jose Dobbs MD MTDD
[2017-10-29] MEDS ORDERED: Iodixanol 320 MG/ML 100 ML BOTTLE IV ONE (19:49)
[2017-10-29] MEDS ORDERED: Levothyroxine 25 MCG TAB PO SCH (22:27)
[2017-10-30] MEDS: Levalbuterol 0.63 MG/3 ML Inhal Soln UD IH SCH ×4 (02:11→19:52)
--- NOTE | 2017-10-30 02:18 | CON ---
Copied To: Deisy Tidwell MD Attending MD: Deisy Tidwell MD DATE: 10/29/2017 REASON FOR CONSULTATION: Shortness of breath, high blood pressure. HISTORY OF PRESENTING ILLNESS: A 57-year-old lady, known to me from outpatient hemodialysis. The patient presented to the emergency room after dialysis yesterday with complaints of shortness of breath, chest tightness, dyspnea on exertion. On questioning, she reports that she has been having increasing difficulty breathing on Sundays for the last 1 month. The patient is on dialysis on Saturday, Saturday and Saturday. She also complains of elevated blood pressure. She denies any chest tightness at present. She complains of poor appetite. Lack of desire to eat. Also complains of fatigue and weakness. PAST MEDICAL AND SURGICAL HISTORY: Severe hypertension for many years, hypertensive nephrosclerosis, ESRD, anemia of chronic kidney disease, secondary hyperparathyroidism. FAMILY HISTORY: Hypertension. SOCIAL HISTORY: No smoking, no alcohol use, no IV drug abuse. ALLERGIES: NO KNOWN DRUG ALLERGIES. MEDICATIONS AT HOME: Hydralazine 10 t.i.d., lisinopril 20 mg daily, Synthroid 75, folic acid, Vytorin, vitamin D2, PhosLo. REVIEW OF SYSTEMS: All systems are reviewed, pertinent positives as mentioned in the history of presenting illness, rest unremarkable. PHYSICAL EXAMINATION: GENERAL: Middle-aged lady, lying in bed, in mild respiratory distress. VITAL SIGNS: Blood pressure 173/96, heart rate 70, respiratory rate 20, temperature 98.7. HEENT: Normocephalic, atraumatic, positive pallor. NECK: Supple, no JVD. LUNGS: Bilateral equal air entry, bilateral equal expansion, minimal rales. CARDIAC: S1 and S2, regular rate and rhythm. Positive murmur, right-sided heart border. No thrill. ABDOMEN: Distended, soft, nontender, bowel sounds present. EXTREMITIES: No lower extremity edema. LABORATORY DATA: WBC , hemoglobin 9.8, hematocrit 31, platelets 122. Sodium 138, potassium 4.4, chloride 95, CO2 of 36, BUN 22, creatinine 5, glucose 82, calcium 10.4, phosphorus 4.8, magnesium 2.9, albumin 2.6, corrected calcium is 11.4. ECHOCARDIOGRAM: Moderately dilated left ventricle, normal left ventricular wall thickness, severely impaired systolic function, global hypokinesis, no left ventricular thrombus, mitral regurg moderate, moderate to severe tricuspid regurg. CURRENT MEDICATIONS: Hydralazine 25 t.i.d., Colace, ergocalciferol, Ecotrin, folic acid, Lopressor 25 daily, Lovenox, PhosLo, Protonix, Synthroid, Tylenol, Zestril, Zofran. ASSESSMENT: 1. Severe dilated cardiomyopathy. 2. Moderate mitral regurgitation, severe tricuspid regurgitation. 3. End-stage renal disease. 4. Anemia of chronic kidney disease. 5. Hypercalcemia. 6. Hypothyroidism with elevated thyroxine. PLAN: 1. Discontinue PhosLo. 2. Check intact PTH. 3. Reduce Synthroid to 25 mcg daily. 4. Dialysis today. 5. Cardiology evaluation. 6. Dialysis again tomorrow. Deisy Tidwell MD
[2017-10-30] MEDS: Pantoprazole 40 mg EC Tab PO SCH (05:23)
[2017-10-30 06:04] LABS: BASO # 0.02 K/mm3 (0.0-2.0); BASO % 0.6 % (0.0-3.0); EOS # 0.5 (0.0-0.7); EOS % 13.2 % (1.5-5.0); GRAN # 1.82 (1.4-6.5); GRAN % 51.1 % (50.0-68.0); HEMOGLOBIN 9.6 g/dL (12.0-16.0); LYMPH % 27.5 % (22.0-35.0); MEAN CELL VOLUME 97.7 fl (80.0-105.0); MEAN CORPUSCULAR HEMOGLOBIN 30.9 pg (25.0-35.0); MEAN CORPUSCULAR HGB CONC 31.6 g/dl (31.0-37.0); MEAN PLATELET VOLUME 11.6 fl (7.0-11.0); MONO # 0.3 (0.1-0.6); MONO % 7.6 % (1.0-6.0); RBC 3.11 10^6/uL (3.5-6.1); RED CELL DISTRIBUTION WIDTH 16.9 % (11.5-14.5); WHITE BLOOD COUNT 3.6 10^3/ul (4.5-11.0)
[2017-10-30 06:19] LABS: ALB/GLOB RATIO 1.2 (1.1-1.8); ALBUMIN 2.7 g/dL (3.0-4.8); BILIRUBIN,DIRECT 0.2 mg/dL (0.0-0.4); CALCIUM 10.2 mg/dL (8.4-10.5)
--- NOTE | 2017-10-30 09:26 | CT ---
Date of service: 10/29/2017 PROCEDURE: CT Chest with contrast (Pulmonary Angiogram) HISTORY: R/O PE COMPARISON: None available. TECHNIQUE: Axial computed tomography images were obtained of the chest in the pulmonary arterial phase of enhancement. Coronal and sagittal reformatted images were created and reviewed. Intravenous contrast dose: 100 cc of Visipaque Radiation dose: Total exam DLP = 153 mGy-cm. This CT exam was performed using one or more of the following dose reduction techniques: Automated exposure control, adjustment of the mA and/or kV according to patient size, and/or use of iterative reconstruction technique. FINDINGS: PULMONARY ARTERIES: Atelectasis at the left lung base adjacent to the small effusion AORTA: No acute findings. No thoracic aortic aneurysm. LUNGS: Unremarkable. No nodule, mass or pulmonary consolidation. PLEURAL SPACES: Small pleural effusions left greater than right HEART: Unremarkable. No cardiomegaly. No significant pericardial effusion. LYMPH NODES: No lymphadenopathy. BONES, CHEST WALL: Unremarkable. No fracture or destructive lesion OTHER FINDINGS: The report concurs with the preliminary [facility] report IMPRESSION: Unremarkable CT pulmonary angiogram. No pulmonary embolus. Small pleural effusions. Atelectasis at the left lung base
[2017-10-30 09:34] VITALS: O2SAT 96
--- NOTE | 2017-10-30 09:55 | CARD ---
APPROVED REPORT Date of service: 10/30/2017 EKG Measurement Heart [id number] <Conclusion> Normal sinus rhythm Left ventricular hypertrophy with repolarization abnormality Abnormal ECG
--- NOTE | 2017-10-30 10:33 | PN ---
Copied To: Shun Rosa MD Attending MD: Shun Rosa MD DATE: 10/30/2017 SUBJECTIVE: The patient's breathing is back to normal. No shortness of breath. No chest pain. PHYSICAL EXAMINATION: VITAL SIGNS: Stable. NECK: Negative JVD. LUNGS: Without rales. HEART: S1, S2. EXTREMITIES: Without edema. LABORATORY DATA: Unchanged. IMPRESSION: 1. Acute systolic congestive heart failure. 2. Dilated cardiomyopathy with an ejection fraction of approximately 25%. 3. Nonobstructive coronary artery disease. 4. End-stage renal disease. Given these findings, I have discussed with the patient about her dietary indiscretion in which she intermittently takes a high salt intake which may contribute to her congestive heart failure symptoms. From a cardiac perspective, there is no further workup necessary at this time. Shun Rosa MD
[2017-10-30] MEDS: cefTRIAXone 1 gm 1 GM/100 ML BAG IVPB SCH (13:50)
[2017-10-30] MEDS: POLYETHYLENE GLYCOL 3350 17 GM/Dose PACKET PO SCH ×3 (13:50→18:40)
[2017-10-30] MEDS: Enoxaparin 30 mg Syringe SC SCH (13:53)
--- NOTE | 2017-10-30 14:31 | PN ---
Copied To: Jose Dobbs MD Attending MD: Jose Dobbs MD DATE: 10/30/2017 SUBJECTIVE: The patient is seen in dialysis. The patient is seen lying in the bed. The patient's shortness of breath has lessened. Overnight nurse's notes were reviewed. No adverse events documented. PHYSICAL EXAMINATION: VITAL SIGNS: T-max 98.3-98.7, pulse 66-86. Telemetry shows sinus rhythm. Blood pressure 143/82, 131/72, 143/83, 161/94, 173/96, respiration 18, O2 sat 99%. HEENT: The patient's head examination, normocephalic, atraumatic. HEENT examination shows pinkish pale conjunctivae. Anicteric sclerae. No oropharyngeal lesion. No neck rigidity. No facial asymmetry. No nystagmus noted. Extraocular movements are grossly intact. CHEST: Kyphosis. LUNGS: Shows positive rhonchi, fine crepitus noted. Questionable decreased breath sound at the bases, left more than the right. CARDIOVASCULAR: Shows S1, S2, regular rhythm. Positive systolic murmur In left sternal border, right second intercostal space, left second intercostal space. ABDOMEN: Soft. Positive bowel sound. No hepatosplenomegaly appreciated. No guarding. No rigidity. No rebound tenderness. GENITALIA: Female. RECTAL: Deferred. EXTREMITIES: Positive left upper extremity AV fistula, positive thrill. Lower extremity shows no pitting edema, no calf numbness, no Homans' sign. NEUROLOGIC: The patient is alert, awake, oriented x3. Gait examination is not tested. MUSCULOSKELETAL: Shows a body mass index of 23. DIAGNOSTICS: On 10/30/2017, WBC 3.6, hemoglobin and hematocrit 9.6/30.4, platelet 125. PT/PTT 11.3/32.6. Sodium 135, potassium 4.2, chloride 96, CO2 of 32, anion gap 11, BUN 18, creatinine 4.6, GFR 12, glucose 80, calcium 10.2, phosphorus 4.9, magnesium 2.7. LFTs are normal. Total protein 5, albumin is 2.7. The patient's CT angio was done last night, [facility] reports were reviewed which shows negative for pulmonary embolism. Multifocal inhomogeneous opacities, small airway disease, bibasilar atelectasis versus fibrosis, bibasilar compressive atelectasis, peribronchial thickening noted. Moderate left-sided pleural effusion with consolidation of the left lower lobe, degenerative joint disease, mediastinal lymphadenopathy, adrenal gland thickening, left renal cyst noted. Official [facility] CT scan reports were noted.. Also. EKG from 10/30/[address] changes in lead I, II, aVF, aVL and V5-V6. Echocardiogram was reviewed. IMPRESSION AND PLAN: 1. Acute recurrent systolic congestive heart failure with with pulmonary vascular congestion. 2. Bibasilar atelectasis and multifocal inhomogeneous pulmonary opacities and small airway disease. 3. Trace right pleural effusion with atelectasis. 4. Mild peribronchial thickening. 5. Moderate left-sided pleural effusion with left lower lobe consolidation. 6. Cardiomegaly. 7. Degenerative spondylosis. 8. Mediastinal lymphadenopathy. 9. Adrenal gland thickening. 10. Possible left renal cyst. 11. Left pleural effusion and atelectasis. 12. Hypertension. 13. Leukopenia, anemia. 14. Hypoxemia. 15. Protein malnutrition and hypoalbuminemia. 16. History of hypothyroidism. 17. Vitamin B12 deficiency. 18. Hypertensive cardiovascular disease with inferolateral ST changes. 19. Dilated cardiomyopathy with left ventricular ejection fraction of 28%. 20. Ixlwcjzy-lz-qoxsxg pulmonary hypertension with right ventricular systolic pressure of 71 mmHg. 21. Moderately dilated and severely impaired left ventricular systolic function with global left ventricular hypokinesis. 22. Left and right atrial enlargement. 23. Mild aortic regurgitation. 24. Moderate mitral regurgitation. 25. Gkkdvfrb-rq-rrdogk tricuspid regurgitation. 26. Hypertensive cardiovascular disease. 27. End-stage renal disease, hemodialysis dependent, 3 times a week via the left upper extremity arteriovenous fistula. 28. Dietary noncompliance. 29. Left lower lobe atelectasis, consolidation and pneumonia. 1. Recurrent acute on chronic systolic congestive heart failure with history of dilated cardiomyopathy with worsening pulmonary vascular congestion and cardiomegaly. 2. Dilated cardiomyopathy with ejection fraction of 25-30%. 3. Hypertension. 4. End-stage renal disease, hemodialysis dependent, three times a week via the left upper extremity arteriovenous fistula. 5. Leukopenia and anemia. 6. Hypoxemia. 7. Hyperphosphatemia. 8. Hypermagnesemia. 9. Mild protein malnutrition and hypoalbuminemia. 10. History of vitamin B12 deficiency. 11. History of hypothyroidism. 12. Progressive and worsening congestive heart failure. 13. Pulmonary hypertension with elevated right ventricular systolic pressure of 71 mmHg. 14. Severely impaired left ventricular systolic function and moderately dilated left ventricle and left ventricular global hypokinesis. 15. Left and right atrial enlargement. 16. Mild aortic regurgitation. 17. Moderate mitral regurgitation. 18. Tesvqwbh-uh-ymkeos tricuspid regurgitation and moderate to severe pulmonary hypertension. 19. Left ventricular hypertrophy and hypertensive cardiovascular disease. 20. History of abdominal tuberculosis. 21 Constipation. 22. Hypovitaminosis D. 23. Secondary hyperparathyroidism with hyperphosphatemia. 1. Acute recurrent systolic congestive heart failure with worsening pulmonary vascular congestion and cardiomegaly. 2. History of dilated cardiomyopathy with ejection fraction of 25% to 30%. 3. Hypertensive cardiovascular disease with inferolateral coronary ischemic ST changes. 4. Hypertension. 5. Hypertensive end-stage renal disease. 6. Anemia. 7. History of hypothyroidism. 8. History of cardiac catheterization done in 2013, history of left ventricular ejection fraction of 25% to 30%. 9. History of hyperlipidemia. 10. History of end-stage renal disease, hemodialysis dependent via left upper extremity AV fistula. 11. History of pulmonary hypertension. PLAN: At this time, the patient's repeat labs are ordered. Current medications, hydralazine 25 mg three times a day, Colace 100 mg 3 times a day, Vibramycin 100 mg IV every 12 hours, Drisdol 50,000 units weekly, Ecotrin 81 mg daily, folic acid 1 mg daily, Lopressor 25 mg daily, Lovenox 30 mg subcu daily, MiraLax 17 g twice a day, Protonix 40 mg daily, Rocephin 1 g IV daily, Synthroid adjusted to dose of 50 mcg daily, Tessalon Perles 200 three times a day, Tylenol p.o. and suppository p.r.n., Xopenex nebulizer 0.63 mg every 6 hours, Zestril 10 mg daily, Zofran 4 mg IV every 4 hours p.r.n. The patient is to be continued on GI, DVT prophylaxis. Chest PT, incentive spirometry has been ordered, out of bed physical therapy, ambulation therapy ordered. The patient was seen by physical therapist on 10/29/2017. Recommends physical therapy 3 to 5 times a week for 1 week. At present, the patient will be continued on above therapeutic interventions as dictated. The patient will be continued on IV antibiotics for at least 24 to 48 hours to observe any improvement. The patient will be continued on bronchodilators. If the patient continues to improve, the patient will most likely be discharged home very soon. Dictated and electronically signed, not read. Jose Dobbs MD MTDMadhu
--- NOTE | 2017-10-30 23:59 | PN ---
Copied To: Deisy Tidwell MD Attending MD: Deisy Tidwell MD DATE: 10/30/2017 SUBJECTIVE: The patient is seen lying in bed. She is awake, she is alert. She complains of dyspnea on exertion. She denies any chest pain. PHYSICAL EXAMINATION GENERAL: Middle-aged lady, lying in bed. VITAL SIGNS: Blood pressure 173/96, heart rate 78, respiratory rate 18, temperature 98.8. HEENT: Normocephalic, atraumatic, positive pallor. NECK: Supple, no JVD. LUNGS: Bilateral equal air entry, bilateral equal expansion, decreased breath sounds at bases. CARDIAC: S1 and S2, regular rate and rhythm, no murmur, no rub. ABDOMEN: Distended, soft, nontender, bowel sounds present. EXTREMITIES: No lower extremity edema. INTAKE AND OUTPUT: Not charted. LABORATORY DATA: WBC 3.6, hemoglobin 9.6, hematocrit 30, platelets 125. Sodium 135, potassium 4.2, chloride 96, CO2 of 32, BUN 18, creatinine 4.6, glucose 80, calcium 10.2, albumin 2.7, corrected calcium is 11.2, phosphorus 4.9, magnesium 2.7. CURRENT MEDICATIONS: Apresoline, Colace, doxycycline, Ecotrin, aspirin, Lopressor 25 daily, Lovenox, MiraLax, Protonix, ceftriaxone 1 g, Synthroid 50, Tylenol, Xopenex, lisinopril. ASSESSMENT: 1. Dilated cardiomyopathy, decreased ejection fraction. 2. Nonobstructive coronary artery disease, on catheterization in 2013. 3. Anemia of chronic kidney disease. 4. Hypercalcemia? secondary to vitamin D supplementation, we will check intact parathyroid hormone. 5. Hypertension. 6. End-stage renal disease. PLAN: 1. Check intact PTH. 2. Dialysis today. 3. Continue current antihypertensive. 4. Continue beta-ann marie and MIKE inhibitor. 5. Will likely need Sensipar. Deisy Tidwell MD
[2017-10-31] MEDS: Levalbuterol 0.63 MG/3 ML Inhal Soln UD IH SCH ×3 (02:40→13:49)
[2017-10-31 05:26] VITALS: RESP 20
[2017-10-31] MEDS: Pantoprazole 40 mg EC Tab PO SCH (05:37)
[2017-10-31 05:42] LABS: BASO # 0.01 K/mm3 (0.0-2.0); BASO % 0.3 % (0.0-3.0); EOS # 0.5 (0.0-0.7); GRAN # 1.47 (1.4-6.5); GRAN % 43.7 % (50.0-68.0); HEMOGLOBIN 9.9 g/dL (12.0-16.0); LYMPH # 1.1 (1.2-3.4); LYMPH % 32.3 % (22.0-35.0); MEAN CELL VOLUME 98.8 fl (80.0-105.0); MEAN CORPUSCULAR HEMOGLOBIN 30.6 pg (25.0-35.0); MEAN CORPUSCULAR HGB CONC 30.9 g/dl (31.0-37.0); MEAN PLATELET VOLUME 11.5 fl (7.0-11.0); MONO # 0.3 (0.1-0.6); MONO % 7.7 % (1.0-6.0); RBC 3.24 10^6/uL (3.5-6.1); RED CELL DISTRIBUTION WIDTH 16.9 % (11.5-14.5); WHITE BLOOD COUNT 3.4 10^3/ul (4.5-11.0)
[2017-10-31] MEDS ORDERED: Levothyroxine 50 MCG TAB PO SCH (06:00)
[2017-10-31 06:38] LABS: ALB/GLOB RATIO 1.2 (1.1-1.8); ALBUMIN 2.9 g/dL (3.0-4.8); BILIRUBIN,DIRECT 0.3 mg/dL (0.0-0.4); CALCIUM 10.5 mg/dL (8.4-10.5)
--- NOTE | 2017-10-31 08:10 | IP.NPCORE ---
Heart Failure Core Measure MIKE Inhibitor Prescribed: Yes Beta-Angeline Prescribed: Metoprolol Succinate Angiotensin II Receptor Angeline Prescribed: Yes AnticoagulationTherapy for Atrial Fibrillation/Atrialflutter: No Contraindication/Reason for not providing: n/a Implantable Cardioverter Defibrillator Therapy: No Cardiac Resynchronization Therapy Prescribed: No - Follow up Will be discharged to: Home Follow Up Date (must be within 7 days from discharge): 11/05/17 Follow Up Time: 09:45
[2017-10-31] MEDS: Enoxaparin 30 mg Syringe SC SCH (10:02)
[2017-10-31] MEDS: POLYETHYLENE GLYCOL 3350 17 GM/Dose PACKET PO SCH (10:02)
[2017-10-31] MEDS: cefTRIAXone 1 gm 1 GM/100 ML BAG IVPB SCH (10:03)
[2017-10-31 10:05] VITALS: BP 142/70
--- NOTE | 2017-10-31 11:33 | PN ---
Copied To: Shun Rosa MD Attending MD: Shun Rosa MD DATE: 10/31/2017 SUBJECTIVE: The patient's breathing is stable. PHYSICAL EXAMINATION: VITAL SIGNS: Blood pressure is 142/70, heart rate is in the 90s. NECK: Negative JVD. LUNGS: No rales noted. Minimal expiratory rhonchi. HEART: Reveals S1, S2. EXTREMITIES: Without edema. LABORATORY DATA: Hemoglobin is 9.9. Chemistries, potassium is 4.1. IMPRESSION: 1. Resolution of congestive heart failure. 2. End-stage renal disease. 3. History of dilated cardiomyopathy. 4. Nonobstructive coronary artery disease. PLAN: Given these findings, the patient is on antibiotics for possible pneumonia. We will continue her hydralazine as ordered for her cardiomyopathy. We will DC telemetry today. Shun Rosa MD
[2017-10-31 12:12] VITALS: PULSE 95; TEMP 98.4
--- NOTE | 2017-10-31 13:35 | DS ---
Copied To: Jose Dobbs MD Attending MD: Jose Dobbs MD LOCATION: The patient is seen in room 261 bed 1. The patient is seen lying in the bed. The patient is comfortable. The patient denies any shortness of breath today. Denies any cough. Denies any hemoptysis, hematemesis, melena. PHYSICAL EXAMINATION: VITAL SIGNS: T-max 98.7; heart rate 70 to 90 to 101; on ambulation, blood pressure 142/70 and 158/90; respirations 20, O2 sat 96%. HEENT: Head examination, normocephalic and atraumatic. HEENT examination shows pinkish pale conjunctivae. Anicteric sclerae. No facial asymmetry. Extraocular movements intact. No nystagmus noted. NECK: No neck rigidity. CHEST: Examination symmetrical. LUNGS: Examination shows questionable decreased breath sound at the base, left more than the right. Occasional rhonchi. No wheezing. CARDIOVASCULAR: Shows S1, S2, regular rhythm. Positive S3, S4 gallop. Positive murmur noted. ABDOMEN: Soft. Positive bowel sounds. GENITALIA: Female. RECTAL: Examination is deferred. EXTREMITIES: Shows positive left upper extremity AV fistula, positive thrill. NEUROLOGIC: The patient is alert, awake, responsive, is able to move upper and lower extremity without assistance. Gait examination is in the not tested. MUSCULOSKELETAL: Examination shows a body mass index of 23. DIAGNOSTICS: 10/31, WBC 3.4, hemoglobin and hematocrit 9.9/32, platelet 127. Differential noted. Chemistry: Sodium 138, potassium 4.1, chloride 102, CO2 29, anion gap 15, BUN 12, creatinine , GFR 15, lactic acid is normal at 2.1. LFTs within phosphorus 4.9, magnesium 2.4. LFTs: Total protein 5.2, albumin 2.9. FINAL IMPRESSION, PLAN AND DISCHARGE DIAGNOSES: 1. Acute recurrent systolic congestive heart failure with pulmonary vascular congestion. 2. Bibasilar atelectasis and multifocal inhomogeneous pulmonary opacity with small airways disease. 3. Left lower lobe consolidation and possible pneumonia. 4. Right pleural effusion with atelectasis. 5. Peribronchial thickening. 6. Moderate left pleural effusion with left lower lobe consolidation, atelectasis versus pneumonia. 7. Degenerative joint disease and spondylosis. 8. Mediastinal lymphadenopathy. 9. Adrenal gland thickening. 10. Possible left renal cyst. 11. Hypertension. 12. Hypertensive cardiovascular disease with inferolateral ST changes. 13. Hypertension. 14. Leukopenia, anemia. 15. Granulocytosis. 16. Hypoxemia. 17. End-stage renal disease, hemodialysis dependent. 18. Hyperphosphatemia. 19. Protein malnutrition. 20. Hypoalbuminemia. 21. History of hyperlipidemia. 22. History of vitamin B12 deficiency. 23. History of hypothyroidism with slightly elevated total T4 of 11.5. 24. Secondary hyperparathyroidism secondary to end-stage renal disease, hemodialysis dependent. 25. Constipation. 26. Hypovitaminosis D. 27. Dilated cardiomyopathy. 28. Hypothyroidism. 1. Acute recurrent systolic congestive heart failure with with pulmonary vascular congestion. 2. Bibasilar atelectasis and multifocal inhomogeneous pulmonary opacities and small airway disease. 3. Trace right pleural effusion with atelectasis. 4. Mild peribronchial thickening. 5. Moderate left-sided pleural effusion with left lower lobe consolidation. 6. Cardiomegaly. 7. Degenerative spondylosis. 8. Mediastinal lymphadenopathy. 9. Adrenal gland thickening. 10. Possible left renal cyst. 11. Left pleural effusion and atelectasis. 12. Hypertension. 13. Leukopenia, anemia. 14. Hypoxemia. 15. Protein malnutrition and hypoalbuminemia. 16. History of hypothyroidism. 17. Vitamin B12 deficiency. 18. Hypertensive cardiovascular disease with inferolateral ST changes. 19. Dilated cardiomyopathy with left ventricular ejection fraction of 28%. 20. Jqfcrkpr-oc-nenvmi pulmonary hypertension with right ventricular systolic pressure of 71 mmHg. 21. Moderately dilated and severely impaired left ventricular systolic function with global left ventricular hypokinesis. 22. Left and right atrial enlargement. 23. Mild aortic regurgitation. 24. Moderate mitral regurgitation. 25. Kaqevndg-dp-mnbmwr tricuspid regurgitation. 26. Hypertensive cardiovascular disease. 27. End-stage renal disease, hemodialysis dependent, 3 times a week via the left upper extremity arteriovenous fistula. 28. Dietary noncompliance. 29. Left lower lobe atelectasis, consolidation and pneumonia. 1. Recurrent acute on chronic systolic congestive heart failure with history of dilated cardiomyopathy with worsening pulmonary vascular congestion and cardiomegaly. 2. Dilated cardiomyopathy with ejection fraction of 25-30%. 3. Hypertension. 4. End-stage renal disease, hemodialysis dependent, three times a week via the left upper extremity arteriovenous fistula. 5. Leukopenia and anemia. 6. Hypoxemia. 7. Hyperphosphatemia. 8. Hypermagnesemia. 9. Mild protein malnutrition and hypoalbuminemia. 10. History of vitamin B12 deficiency. 11. History of hypothyroidism. 12. Progressive and worsening congestive heart failure. 13. Pulmonary hypertension with elevated right ventricular systolic pressure of 71 mmHg. 14. Severely impaired left ventricular systolic function and moderately dilated left ventricle and left ventricular global hypokinesis. 15. Left and right atrial enlargement. 16. Mild aortic regurgitation. 17. Moderate mitral regurgitation. 18. Sgnbngzx-qw-wojsdq tricuspid regurgitation and moderate to severe pulmonary hypertension. 19. Left ventricular hypertrophy and hypertensive cardiovascular disease. 20. History of abdominal tuberculosis. 21 Constipation. 22. Hypovitaminosis D. 23. Secondary hyperparathyroidism with hyperphosphatemia. 1. Acute recurrent systolic congestive heart failure with worsening pulmonary vascular congestion and cardiomegaly. 2. History of dilated cardiomyopathy with ejection fraction of 25% to 30%. 3. Hypertensive cardiovascular disease with inferolateral coronary ischemic ST changes. 4. Hypertension. 5. Hypertensive end-stage renal disease. 6. Anemia. 7. History of hypothyroidism. 8. History of cardiac catheterization done in 2013, history of left ventricular ejection fraction of 25% to 30%. 9. History of hyperlipidemia. 10. History of end-stage renal disease, hemodialysis dependent via left upper extremity AV fistula. 11. History of pulmonary hypertension. PLAN: At this time, the patient has been cleared by Cardiology. The patient will be discharged home. Current updated discharge medications are as follows. Ecotrin 81 mg p.o. daily, Tessalon Perles 200 three times a day, Vibramycin, doxycycline 100 mg twice a day, Drisdol 50,000 units weekly. He is on Vytorin 10/40 daily, folic acid 1 mg daily, hydralazine increased to 25 mg three times a day from 10 mg three times a day, Xopenex nebulizer 0.63 mg every 6 hours, Synthroid 50 mcg daily, Zestril 10 mg daily, Lopressor 25 mg daily, Protonix 40 mg daily, MiraLax 17 g twice a day which will be changed to Linzess 145 mcg daily. The patient is to be discharged home. Follow up with Dr. Dobbs in one week. Discharge medications as per updated ambulatory order plus new script. The nurses are advised to give a copy of the diet to the patient upon discharge. The patient's ooppiced-dd-atb, Jeffy Casanova, was contacted via the phone. I have updated the patient and the patient's [id number]-ilh to have a very close followup in the office within a week, further followup recommendations which they acknowledged to understand. During this hospitalization, the patient's condition, diagnosis, diagnostic test results, recommendation by all physicians involving in the care of the patient was explained to the patient and the patient's [id number] at length and almost on a daily basis. All questions concerned answered to their satisfaction. In addition, I have advised the patient's frqwaikr-[id number] and the patient to have outpatient Gastroenterology evaluation. For screening endoscopy and colonoscopy. Time spent in the discharge process 45 minutes. Dictated and electronically signed, not read. Jose Dobbs MD MTDD
[2017-11-02] MEDS ORDERED: Ergocalciferol 50,000 Intl Units Cap PO SCH (10:00)
== END 2017-10-31 14:26 | disposition home or self-care (01) | DRG 291 ==
LOC: ED 09:09 → ERH 11:35 → 2RNO 12:54
PROVIDERS: ADMIT Internal Medicine; ATTEND Internal Medicine
PROC: 5A1D70Z Performance of Urinary Filtration, Intermittent, Less than 6 Hours Per Day (ICD-10-PCS; principal; 2017-10-29)
DX: I13.2 Hypertensive heart and chronic kidney disease with heart failure and with stage 5 chronic kidney disease, or end stage renal disease (principal); I50.23 Acute on chronic systolic (congestive) heart failure; J18.9 Pneumonia, unspecified organism; N18.6 End stage renal disease; E44.1 Mild protein-calorie malnutrition; J98.11 Atelectasis; N25.81 Secondary hyperparathyroidism of renal origin; D63.1 Anemia in chronic kidney disease; D72.819 Decreased white blood cell count, unspecified; E03.9 Hypothyroidism, unspecified; E53.8 Deficiency of other specified B group vitamins; E55.9 Vitamin D deficiency, unspecified; E78.5 Hyperlipidemia, unspecified; E83.39 Other disorders of phosphorus metabolism; E83.41 Hypermagnesemia; E83.52 Hypercalcemia; I25.10 Atherosclerotic heart disease of native coronary artery without angina pectoris; I27.20 Pulmonary hypertension, unspecified; I08.3 Combined rheumatic disorders of mitral, aortic and tricuspid valves; I42.0 Dilated cardiomyopathy; K21.9 Gastro-esophageal reflux disease without esophagitis; K59.00 Constipation, unspecified; M47.9 Spondylosis, unspecified; R09.02 Hypoxemia; Z79.899 Other long term (current) drug therapy; Z91.11 Patient's noncompliance with dietary regimen; Z99.2 Dependence on renal dialysis

== ENCOUNTER 2017-11-14 08:46 | Inpatient (IN) | payer MEDICARE, MEDICAID ==
--- NOTE | 2017-11-14 09:42 | ED PDOC ---
Arrival/HPI - General Historian: Patient, Family - General Chief Complaint: Medical Clearance Time Seen by Provider: 11/14/17 09:38 - History of Present Illness Narrative History of Present Illness (Text): 11/14/17 09:38 57yr old female presents today with pain and swelling to left av fistula and hand since last night. pt states she noticed that along with the pain there was no vibration. pt states she gets dialysis Saturday, saturday and saturday. pt denies cp or sob. no abdominal pain. pt denies fever/chills. pt states the swelling in the hand has improved. (Jannie Giraldo) Past Medical History - Provider Review Nursing Documentation Reviewed: Yes - Travel History Have you recently traveled outside [place] w/in the past 3 mons?: No - Infectious Disease Hx of Infectious Diseases: None - Tetanus Immunization Tetanus Immunization: Unknown - Cardiac Hx Hypertension: Yes - Pulmonary Hx Respiratory Disorders: Yes Hx Tuberculosis: Yes - Neurological Hx Neurological Disorder: No Hx Alzheimer's Disease: No - HEENT Hx HEENT Disorder: No - Renal Hx Dialysis: Yes - Endocrine/Metabolic Hx Endocrine Disorders: No - Hematological/Oncological Hx Blood Disorders: No - Integumentary Hx Dermatological Disorder: No - Musculoskeletal/Rheumatological Hx Musculoskeletal Disorders: No - Gastrointestinal Hx Gastrointestinal Disorders: No - Genitourinary/Gynecological Hx Genitourinary Disorders: No - Psychiatric Hx Psychophysiologic Disorder: No Hx Emotional Abuse: No Hx Physical Abuse: No Hx Substance Use: No - Surgical History Other/Comment: ofelia sx 2006 - Anesthesia Hx Anesthesia: Yes Hx Anesthesia Reactions: No Hx Malignant Hyperthermia: No - Suicidal Assessment Feels Threatened In Home Enviroment: No Family/Social History - Physician Review Nursing Documentation Reviewed: Yes Family/Social History: Unknown Family HX Smoking Status: Never Smoked Hx Alcohol Use: No Hx Substance Use: No Allergies/Home Meds Allergies/Adverse Reactions: Allergies No Known Allergies Allergy (Verified 09/22/17 20:30) Home Medications: Home Meds Medication Instructions Recorded Confirmed Metoprolol Tartrate 25 mg PO DAILY 05/09/15 11/14/17 Folic Acid 1 mg PO DAILY 03/08/16 11/14/17 Levothyroxine Sodium [Unithroid] 75 mcg PO DAILY 03/08/16 11/14/17 Ergocalciferol (Vitamin D2) 50,000 unit PO SAT 03/19/17 11/14/17 [Vitamin D2] Denosumab [Prolia] 60 mg SC 11/14/17 Sevelamer Carbonate [Renvela] 2 tab PO TID 11/14/17 11/14/17 Review of Systems - Review of Systems Constitutional: absent: Fatigue, Fevers Respiratory: absent: SOB, Cough Cardiovascular: absent: Chest Pain, Palpitations Gastrointestinal: absent: Abdominal Pain, Nausea, Vomiting Musculoskeletal: Arthralgias (left arm pain) Neurological: absent: Headache, Dizziness Physical Exam Vital Signs Reviewed: Yes Temperature: Afebrile Blood Pressure: Normal Pulse: Regular Respiratory Rate: Normal Appearance: Positive for: Well-Appearing, Non-Toxic, Comfortable Pain Distress: None Mental Status: Positive for: Alert and Oriented X 3 - Systems Exam Head: Present: Atraumatic Neck: Present: Normal Range of Motion Respiratory/Chest: Present: Clear to Auscultation Cardiovascular: Present: Regular Rate and Rhythm Abdomen: No: Tenderness Rectal: Present: Normal Rectal Tone. No: Occult Blood, Rectal Tenderness, Gross Blood, Melena, Fissures Upper Extremity: Present: Normal ROM, NORMAL PULSES, Tenderness, Swelling, Neurovascularly Intact, Other (AV fistula without thrill. + edema. ). No: Erythema Vital Signs Temp Pulse Resp BP Pulse Ox 11/14/17 16:40 65 143/91 H 11/14/17 16:22 63 16 143/93 H 99 11/14/17 14:54 98.6 F 64 16 100 11/14/17 12:42 71 16 117/79 97 11/14/17 09:30 97.9 F 67 17 113/73 100 Medical Decision Making ED Course and Treatment: 11/14/17 09:42 57yr old female with malfunction of AV fistula. no thrill + pulse. cbc; wnl cmp; inr: 0.93 type and screen case discussed with dr. manohar ornelas in depth; advised start heparin. pt will need temporary access for dialysis. 11/14/17 13:50 pt with brown heme negative stools on examination heparin bolus and drip ordered case discussed with dr. calix; accepts admission. case was discussed with dr. Tidwell. case was discussed with surgery; they want to temporarily hold starting heparin while they insert temporary dialysis catheter at bedside in ER. all aspects of this case were discussed the attending of record. Impression: av fistula thrombus admit (Jannie Giraldo) - Lab Interpretations Lab Results: 11/14/17 10:45 11/14/17 13:20 Lab Results 11/14/17 13:35: Phosphorus 3.5, Magnesium 2.8 H 11/14/17 13:20: Sodium 137, Potassium 5.2 H, Chloride 99, Carbon Dioxide 31, Anion Gap 12, BUN 29 H, Creatinine 4.9 H, Est GFR ( Amer) 11, Est GFR ( Non-Af Amer) 9, Random Glucose 74, Calcium 6.4 L*, Total Bilirubin 0.4, AST 21, ALT 25, Alkaline Phosphatase 78, Total Protein 4.9 L, Albumin 2.8 L, Globulin 2.1, Albumin/Globulin Ratio 1.3 11/14/17 12:03: Blood Type A POSITIVE, Antibody Screen Negative, Crossmatch See Detail, BBK History Checked Patient has bt 11/14/17 10:45: WBC 4.7 D, RBC 3.66, Hgb 11.2 L, Hct 36.4, MCV 99.5, MCH 30.6, MCHC 30.8 L, RDW 16.8 H, Plt Count 152, MPV 10.8, Gran % 72.6 H, Lymph % (Auto) 15.6 L, [place] % (Auto) 7.2 H, Eos % (Auto) 4.2, Baso % (Auto) 0.4, Gran # 3.44, Lymph # (Auto) 0.7 L, [place] # (Auto) 0.3, Eos # (Auto) 0.2, Baso # (Auto) 0.02 11/14/17 10:45: PT 10.7, INR 0.93, APTT 32.9 - RAD Interpretation Radiology Orders: 11/14/17 10:58 DUPLEX HEMODIALYSIS ACCESS [US] Stat - Medication Orders Current Medication Orders: Acetaminophen (Tylenol 325mg Tab) 650 mg PO Q6H PRN PRN Reason: Pain, Mild (1-3) Aspirin (Ecotrin) 81 mg PO DAILY MELONIE Atorvastatin Calcium (Lipitor) 20 mg PO DIN MELONIE Benzonatate (Tessalon Perles) 200 mg PO TID MELONIE Last Admin: 11/14/17 16:39 Dose: 200 mg Diphenhydramine HCl (Benadryl) 25 mg PO ONCE PRN PRN Reason: Insomnia Ezetimibe (Zetia) 10 mg PO DAILY [facility] Ergocalciferol (Drisdol 50,000 Intl Units Cap) 1 cap PO SAT [facility] Famotidine (Pepcid) 20 mg PO 1000 MELONIE Folic Acid (Folic Acid) 1 mg PO DAILY [facility] Hydralazine HCl (Apresoline) 25 mg PO TID [facility] Last Admin: 11/14/17 20:06 Dose: 25 mg MAR Pulse and Blood Pressure Document 11/14/17 20:06 [facility] (Rec: 11/14/17 20:11 [id number]) Pulse Pulse Rate (60-90) 70 Blood Pressure Blood Pressure (100/60-150/90) 131/85 Heparin Sodium/Sodium Chloride (Heparin 69573 Units/250ml 1/2 Normal Saline) 25 ,000 units in 250 mls @ 10 mls/hr IV .Q24H MELONIE; 1,000 UNITS/HR PRN Reason: Protocol Last Titration: 11/15/17 06:54 Dose: 947 units/hr, 9.47 mls/hr Titration Intervention Document 11/15/17 06:54 [facility] (Rec: 11/15/17 06:56 [id number]) Titration Intake Titration Intake 6 Cumulative Intake 86 Cumulative Intake (Rx) 86 Waste Amount 0 Container Volume 164 Titration Dosing Titration Dose 947 IV Rate 9.47 Intake/Decrease Increased Cumulative Dose 8600 Levalbuterol HCl (Xopenex) 0.63 mg IH [id number] [facility] Last Admin: 11/15/17 07:38 Dose: 0.63 mg Levothyroxine Sodium (Synthroid) 75 mcg PO DAILY [facility] Metoprolol Tartrate (Lopressor) 25 mg PO DAILY [facility] Last Admin: 11/14/17 16:40 Dose: 25 mg MAR Pulse and Blood Pressure Document 11/14/17 16:40 (Rec: 11/14/17 16:40 [email or web address]) Pulse Pulse Rate (60-90) 65 Blood Pressure Blood Pressure (100/60-150/90) 143/91 Non-Formulary Medication (Linaclotide [Linzess]) 145 mcg PO DAILY [facility] Discontinued Medications Acetaminophen (Tylenol 325mg Tab) 650 mg PO STAT STA Stop: 11/14/17 10:01 Last Admin: 11/14/17 10:10 Dose: 650 mg MAR Pain/Vitals Document 11/14/17 10:10 (Rec: 11/14/17 10:11 [email or web address]) Pain Reassessment Is This A Pain ReAssessment? No Sleep Is patient sleeping during reassessment? No Presence of Pain Presence of Pain Yes Pain Scale Used Pain Scale Used Numeric Heparin Sodium (Porcine) (Heparin) 4,400 units 80 units/kg (4400 units) IV ONCE ONE PRN Reason: Protocol Stop: 11/14/17 13:45 Last Admin: 11/14/17 16:41 Dose: 4,400 units eMAR Start Stop Document 11/14/17 16:41 (Rec: 11/14/17 16:41 [place] [id number]) Intravenous Solution Start Date 11/14/17 Start Time 16:41 Heparin Sodium (Porcine) (Heparin) 2,200 units IVP STAT STA PRN Reason: Protocol Stop: 11/15/17 06:57 Last Admin: 11/15/17 07:14 Dose: 2,200 units [facility] aPTT Document 11/15/17 07:14 [facility] (Rec: 11/15/17 07:15 [id number]) aPTT aPTT (secs) 40.8 IVP Administration Document 11/15/17 07:14 [facility] (Rec: 11/15/17 07:15 [id number]) Charges for Administration # of IVP Administrations 1 Lisinopril (Zestril) 10 mg PO DAILY [facility] Last Admin: 11/14/17 16:40 Dose: 10 mg MAR Pulse and Blood Pressure Document 11/14/17 16:40 (Rec: 11/14/17 16:40 [email or web address] Pulse Pulse Rate (60-90) 65 Blood Pressure Blood Pressure (100/60-150/90) 143/91 Morphine Sulfate (Morphine) 2 mg IVP STAT STA Stop: 11/14/17 15:11 Last Admin: 11/14/17 15:22 Dose: 2 mg MAR Pain Assessment Document 11/14/17 15:22 (Rec: 11/14/17 15:22 [email or web address] Pain Reassessment Is this a pain reassessment? No Sleep Is patient sleeping during reassessment? No Presence of Pain Presence of Pain Yes IVP Administration Document 11/14/17 15:22 (Rec: 11/14/17 15:22 [email or web address]) Charges for Administration # of IVP Administrations 1 Morphine Sulfate (Morphine) 2 mg IVP ONCE ONE Stop: 11/14/17 22:21 Last Admin: 11/14/17 22:28 Dose: 2 mg [facility] Pain Assessment Document 11/14/17 22:28 [facility] (Rec: 11/14/17 22:28 [id number]) Pain Reassessment Is this a pain reassessment? Yes Presence of Pain Presence of Pain Yes Pain Scale Used Pain Scale Used Numeric Location Left, Right or Bilateral Left Pain Location Body Site Arm Description Description Throbbing Intensity of Pain at present 8 Acceptable Level of Pain 3 Pain Behavior Restlessness Alleviating Factors/Management Medication Techniques Alleviating Factors Medication IVP Administration Document 11/14/17 22:28 [facility] (Rec: 11/14/17 22:28 MAD [facility] [id number]) Charges for Administration # of IVP Administrations 1 Re-Assess: [facility] Pain Assessment Document 11/14/17 23:28 [facility] (Rec: 11/15/17 08:41 MAD [facility] [id number]) Pain Reassessment Is this a pain reassessment? Yes Sleep Is patient sleeping during reassessment? Yes Morphine Sulfate (Morphine) 2 mg IVP STAT STA Stop: 11/15/17 05:08 Last Admin: 11/15/17 05:48 Dose: 2 mg [facility] Pain Assessment Document 11/15/17 05:48 [facility] (Rec: 11/15/17 05:48 [facility]AD [facility] [id number]) Pain Reassessment Is this a pain reassessment? Yes Presence of Pain Presence of Pain Yes Pain Scale Used Pain Scale Used Numeric Location Pain Location Body Site Abdomen Description Description Throbbing Intensity of Pain at present 9 Acceptable Level of Pain 3 Alleviating Factors/Management Medication Techniques Alleviating Factors Medication IVP Administration Document 11/15/17 05:48 [facility] (Rec: 11/15/17 05:48 MAD [facility] [id number]) Charges for Administration # of IVP Administrations 1 Re-Assess: [facility] Pain Assessment Document 11/15/17 06:48 [facility] (Rec: 11/15/17 08:41 MAD [id number]) Pain Reassessment Is this a pain reassessment? Yes Sleep Is patient sleeping during reassessment? Yes Pneumococcal Polyvalent Vaccine (Pneumovax 23 Vaccine) 0.5 ml IM .ONCE ONE Stop: 11/14/17 21:28 Disposition/Present on Arrival - Present on Arrival Any Indicators Present on Arrival: No History of DVT/PE: No History of Uncontrolled Diabetes: No Urinary Catheter: No History of Decub. Ulcer: No History Surgical Site Infection Following: None - Disposition Have Diagnosis and Disposition been Completed?: Yes Disposition Time: 13:54 Patient Plan: Admission - Disposition Diagnosis: AV fistula thrombosis Disposition: HOSPITALIZED Patient Problems: Current Active Problems Problem Status Onset AV fistula thrombosis Acute Condition: FAIR
[2017-11-14 11:02] LABS: BASO # 0.02 K/mm3 (0.0-2.0); BASO % 0.4 % (0.0-3.0); EOS # 0.2 (0.0-0.7); EOS % 4.2 % (1.5-5.0); GRAN # 3.44 (1.4-6.5); GRAN % 72.6 % (50.0-68.0); HEMOGLOBIN 11.2 g/dL (12.0-16.0); LYMPH # 0.7 (1.2-3.4); LYMPH % 15.6 % (22.0-35.0); MEAN CELL VOLUME 99.5 fl (80.0-105.0); MEAN CORPUSCULAR HEMOGLOBIN 30.6 pg (25.0-35.0); MEAN CORPUSCULAR HGB CONC 30.8 g/dl (31.0-37.0); MEAN PLATELET VOLUME 10.8 fl (7.0-11.0); MONO # 0.3 (0.1-0.6); MONO % 7.2 % (1.0-6.0); RBC 3.66 10^6/uL (3.5-6.1); RED CELL DISTRIBUTION WIDTH 16.8 % (11.5-14.5); WHITE BLOOD COUNT 4.7 10^3/ul (4.5-11.0)
[2017-11-14 11:15] LABS: INR 0.93; PARTIAL THROMBOPLASTIN TIME 32.9 Seconds (25.1-36.5); PROTHROMBIN TIME 10.7 SECONDS (9.4-12.5)
--- NOTE | 2017-11-14 12:42 | US ---
PROCEDURE: Duplex hemodialysis access HISTORY: ESRD, thrombosed left AV fistula PRIORS: None. TECHNIQUE: LEFT upper extremity radiocephalic AV fistula access evaluation. Flow was assessed with color Doppler, compressibility, assessment of phasic flow and augmentation response. FINDINGS: LEFT radiocephalic AVF is partially thrombosed from the distal forearm to the elbow. There is no stenosis at the arterial anastamosis. No flow seen within vein labeled basilic the arm. This may represent the cephalic vein and last on the basilic vein. Flow is present within the basilic vein. Images of a stent within outflow cephalic vein in the forearm shows no flow. Normal low resistance waveforms seen within the radial artery. OTHER FINDINGS: IMPRESSION: Thrombosed left radiocephalic AV fistula from the distal forearm to the elbow.
[2017-11-14 13:32] VITALS: BMI 22.4
[2017-11-14] MEDS ORDERED: Heparin25000 units/250ml 1/2NS 25,000 UNITS/250 ML BAG IV SCH (13:45)
[2017-11-14 14:10] LABS: ALB/GLOB RATIO 1.3 (1.1-1.8); ALBUMIN 2.8 g/dL (3.0-4.8); CALCIUM 6.4 mg/dL (8.4-10.5)
--- NOTE | 2017-11-14 14:15 | CP.PCM.CON ---
Past Patient History - Infectious Disease Hx of Infectious Diseases: None - Tetanus Immunizations Tetanus Immunization: Unknown - Past Social History Smoking Status: Never Smoked - CARDIAC Hx Hypertension: Yes - PULMONARY Hx Respiratory Disorders: Yes Hx Tuberculosis: Yes - NEUROLOGICAL Hx Neurological Disorder: No Hx Alzheimer's Disease: No - HEENT Hx HEENT Problems: No - RENAL Hx Dialysis: Yes - ENDOCRINE/METABOLIC Hx Endocrine Disorders: No - HEMATOLOGICAL/ONCOLOGICAL Hx Blood Disorders: No - INTEGUMENTARY Hx Dermatological Problems: No - MUSCULOSKELETAL/RHEUMATOLOGICAL Hx Musculoskeletal Disorders: No - GASTROINTESTINAL Hx Gastrointestinal Disorders: No - GENITOURINARY/GYNECOLOGICAL Hx Genitourinary Disorders: No - PSYCHIATRIC Hx Psychophysiologic Disorder: No Hx Emotional Abuse: No Hx Physical Abuse: No Hx Substance Use: No - SURGICAL HISTORY Other/Comment: abd sx 2006 - ANESTHESIA Hx Anesthesia: Yes Hx Anesthesia Reactions: No Hx Malignant Hyperthermia: No Meds Allergies/Adverse Reactions: Allergies Allergy/AdvReac Type Severity Reaction Status Date / Time No Known Allergies Allergy Verified 09/22/17 20:30 - Medications Medications: Current Medications Aspirin (Ecotrin) 81 mg PO DAILY MELONIE Atorvastatin Calcium (Lipitor) 20 mg PO DIN MELONIE Benzonatate (Tessalon Perles) 200 mg PO TID MELONIE Ezetimibe (Zetia) 10 mg PO DAILY MELONIE Famotidine (Pepcid) 20 mg PO 1000 MELONIE Folic Acid (Folic Acid) 1 mg PO DAILY MELONIE Hydralazine HCl (Apresoline) 25 mg PO TID MELONIE Heparin Sodium/Sodium Chloride (Heparin 01058 Units/250ml 1/2 Normal Saline) 25 ,000 units in 250 mls @ 10 mls/hr IV .Q24H EMLONIE; 1,000 UNITS/HR PRN Reason: Protocol Levalbuterol HCl (Xopenex) 0.63 mg IH [id number] MELONIE Levothyroxine Sodium (Synthroid) 75 mcg PO DAILY MELONIE Lisinopril (Zestril) 10 mg PO DAILY MELONIE Metoprolol Tartrate (Lopressor) 25 mg PO DAILY [facility] Non-Formulary Medication (Linaclotide [Linzess]) 145 mcg PO DAILY [facility] Results - Vital Signs Recent Vital Signs: Last Vital Signs Temp 97.9 F 11/14/17 09:30 Pulse 71 11/14/17 12:42 Resp 16 11/14/17 12:42 BP 117/79 11/14/17 12:42 Pulse Ox 97 11/14/17 12:42 - Labs Result Diagrams: 11/14/17 10:45 11/14/17 13:20
--- NOTE | 2017-11-14 14:29 | CP.PCM.HP ---
<Rakesh De Jesus - Last Filed: 11/14/17 21:13> History of Present Illness - History of Present Illness History of Present Illness: Rakesh De Jesus PGY2 IM H&P Note for Dr. Dobbs Ms. Casanova is a 57-year-old [place] female with a PMH of ESRD on HD (MWF), multiple episodes of thrombosed left radiocephalic AV fistula with prior stenting by Dr. Shun Abbott, nonischemic dilated cardiomyopathy with latest EF of < 30%, HTN, HLD, hypothyroidism, miliary TB, GERD and bronchial asthma who presents with a 1 day history of pain and swelling in her left forearm and hand surrounding the fistula. Per daughter, who was at bedside, the patient went for hemodialysis yesterday, and the nurse was struggling to utilize the fistula. Later in the evening, the patient states that there was continuous bleeding from the AV fistula site associated with pain, and later it became swollen. The patient denies any other symptoms of chest pain, shortness of breath, headaches, changes in vision/hearing, chest fever/chills, nausea/ vomiting/diarrhea, numbness or tingling in her extremities. 12 point ROS was reviewed and is otherwise unremarkable. In the ED, duplex of HD access revealed thrombosed left radiocephalic AV fistula from the distal forearm to the elbow. Interventional radiology (Dr. Dobbs) was contacted and recommended to start patient on heparin drip and obtain temporary access for dialysis. Hemoccult test was negative. PMH: As above PSH: AV fistula, hernia repair Meds: As per MAY, reviewed Allergies: NKDA SHx: Denies tobacco use, alcohol use or illicit drug use FHx: Noncontributory Present on Admission - Present on Admission Any Indicators Present on Admission: No Review of Systems - Review of Systems All systems: reviewed and no additional remarkable complaints except (as per HPI ) Past Patient History - Infectious Disease Hx of Infectious Diseases: None - Tetanus Immunizations Tetanus Immunization: Unknown - Past Medical History & Family History Past Medical History?: Yes Past Family History: Reviewed and not pertinent - Past Social History Smoking Status: Never Smoked Alcohol: None Drugs: Denies Home Situation {Lives}: With Family - CARDIAC Hx Congestive Heart Failure: Yes Hx Hypercholesterolemia: Yes Hx Hypertension: Yes - PULMONARY Hx Respiratory Disorders: Yes Hx Asthma: Yes Hx Tuberculosis: Yes - NEUROLOGICAL Hx Neurological Disorder: No Hx Alzheimer's Disease: No - HEENT Hx HEENT Problems: No - RENAL Hx Chronic Kidney Disease: Yes Hx Dialysis: Yes Type of Dialysis Access: AVF for HD Date of Last Dialysis Treatment: 11/13/17 - ENDOCRINE/METABOLIC Hx Endocrine Disorders: No - HEMATOLOGICAL/ONCOLOGICAL Hx Blood Disorders: No - INTEGUMENTARY Hx Dermatological Problems: No - MUSCULOSKELETAL/RHEUMATOLOGICAL Hx Musculoskeletal Disorders: No - GASTROINTESTINAL Hx Gastrointestinal Disorders: No - GENITOURINARY/GYNECOLOGICAL Hx Genitourinary Disorders: No - PSYCHIATRIC Hx Psychophysiologic Disorder: No Hx Emotional Abuse: No Hx Physical Abuse: No Hx Substance Use: No - SURGICAL HISTORY Other/Comment: abd sx 2006 - ANESTHESIA Hx Anesthesia: Yes Hx Anesthesia Reactions: No Hx Malignant Hyperthermia: No Meds Allergies/Adverse Reactions: Allergies Allergy/AdvReac Type Severity Reaction Status Date / Time No Known Allergies Allergy Verified 09/22/17 20:30 Physical Exam - Constitutional Appears: Well, Non-toxic, No Acute Distress - Head Exam Head Exam: NORMAL INSPECTION - Eye Exam Eye Exam: EOMI, Normal appearance, PERRL - ENT Exam ENT Exam: Mucous Membranes Moist - Neck Exam Neck exam: Positive for: Normal Inspection - Respiratory Exam Respiratory Exam: NORMAL BREATHING PATTERN. absent: Rales, Rhonchi, Wheezes - Cardiovascular Exam Cardiovascular Exam: RRR, +S1, +S2 - GI/Abdominal Exam GI & Abdominal Exam: Normal Bowel Sounds - Extremities Exam Additional comments: left forearm AV fistula, with mild surrounding edema mild palpalble thrill no audible bruit appreciated - Back Exam Back exam: NORMAL INSPECTION - Neurological Exam Neurological exam: Alert, CN II-XII Intact, Oriented x3 - Psychiatric Exam Psychiatric exam: Normal Mood - Skin Skin Exam: Normal Color Results - Vital Signs Recent Vital Signs: Last Vital Signs Temp 97.9 F 11/14/17 09:30 Pulse 71 11/14/17 12:42 Resp 16 11/14/17 12:42 BP 117/79 11/14/17 12:42 Pulse Ox 97 11/14/17 12:42 - Labs Result Diagrams: 11/14/17 10:45 11/14/17 13:20 Assessment & Plan - Assessment and Plan (Free Text) Assessment: 57-year-old [place] female with a PMH of ESRD on HD (MWF), multiple episodes of thrombosed left radiocephalic AV fistula with prior stenting by Dr. Shun Abbott , nonischemic dilated cardiomyopathy with latest EF of < 30%, HTN, HLD, hypothyroidism, miliary TB, GERD and bronchial asthma who presented to the ED with symptoms of AV fistula swelling and pain, found to have a thrombosed left radiocephalic AV fistula from the distal forearm to elbow on duplex. Per IR recommendation, patient was started on heparin drip. Surgery is consulted for temporary dialysis catheter. Patient is due for dialysis tomorrow, Saturday, 11/15. Plan: 1. Thrombosed left radiocephalic AV fistula - Continue heparin drip - IR consulted, recommendations appreciated - Surgery consulted for temporary dialysis catheter, recommendations appreciated - Continue to monitor for any changes in mental status or distal extremities - Admit to telemetry for monitoring 2. ESRD on HD - Dialysis planned for tomorrow - Nephrology consulted, recs appreciated - Surgery is consulted for temporary dialysis catheter - Monitor for any electrolyte abnormalities and supplement accordingly 3. History of systolic dysfunction CHF - Echocardiogram from 10/29/17 reviewed, EF 27.9%, global hypokinesis of left ventricle, moderate to severe tricuspid regurgitation and moderate to severe pulmonary hypertension - Cardiology consulted, recommendations appreciated - Continue ASA, lisinopril and Lopressor 4. History of HTN - Continue hydralazine and lisinopril 5. History of HLD - Continue Lipitor and Zetia 6. History of hypothyroidism - Continue Synthroid 7. History of asthma - Continue Xopenex 8. Prophylaxis - Start Pepcid daily - SCDs/heparin gtt Case was reviewed and discussed with attending, Dr. Dilia De Jesus PGY2 <Jose Dobbs - Last Filed: 11/20/17 16:45> Results - Vital Signs Recent Vital Signs: Last Vital Signs Temp 98.5 F 11/20/17 05:27 Pulse 72 11/20/17 13:26 Resp 16 11/20/17 05:27 BP 130/71 11/20/17 13:26 Pulse Ox 97 11/20/17 05:27 - Labs Result Diagrams: 11/20/17 06:00 11/20/17 06:00 Labs: Laboratory Results - last 24 hr 11/17/17 11/20/17 11/20/17 06:30 06:00 06:00 WBC 3.7 L RBC 3.41 L Hgb 10.3 L Hct 32.5 L MCV 95.3 MCH 30.2 MCHC 31.7 RDW 16.9 H Plt Count 113 L Manual Plt Count 135 MPV 10.7 Retic Count Sodium 140 Potassium 4.6 Chloride 104 Carbon Dioxide 28 Anion Gap 13 BUN 20 Creatinine 5.8 H Est GFR ( Amer) 9 Est GFR (Non-Af Amer) 7 Random Glucose 80 Calcium 6.1 L* Phosphorus 4.0 Magnesium 2.8 H Total Bilirubin 0.4 Direct Bilirubin 0.2 AST 33 ALT 30 Alkaline Phosphatase 63 Total Protein 4.8 L Albumin 2.5 L Globulin 2.3 Albumin/Globulin Ratio 1.1 Heparin-induced Plt Ab Negative Hepatitis A IgM Ab Hep Bs Antigen Hep Bs Antibody Hep B Core IgM Ab Hepatitis C Antibody 11/20/17 11/20/17 11/20/17 06:00 06:00 06:00 WBC RBC Hgb Hct MCV MCH MCHC RDW Plt Count Manual Plt Count MPV Retic Count 1.78 H Sodium Potassium Chloride Carbon Dioxide Anion Gap BUN Creatinine Est GFR ( Amer) Est GFR (Non-Af Amer) Random Glucose Calcium Phosphorus Magnesium Total Bilirubin Direct Bilirubin AST ALT Alkaline Phosphatase Total Protein Albumin Globulin Albumin/Globulin Ratio Heparin-induced Plt Ab Hepatitis A IgM Ab Negative Hep Bs Antigen Negative Hep Bs Antibody Positive Hep B Core IgM Ab Negative Hepatitis C Antibody Negative 11/20/17 08:40 WBC RBC Hgb Hct MCV MCH MCHC RDW Plt Count Manual Plt Count MPV Retic Count Sodium Potassium Chloride Carbon Dioxide Anion Gap BUN Creatinine Est GFR ( Amer) Est GFR (Non-Af Amer) Random Glucose Calcium Phosphorus 3.9 Magnesium Total Bilirubin Direct Bilirubin AST ALT Alkaline Phosphatase Total Protein Albumin Globulin Albumin/Globulin Ratio Heparin-induced Plt Ab Hepatitis A IgM Ab Hep Bs Antigen Hep Bs Antibody Hep B Core IgM Ab Hepatitis C Antibody Attending/Attestation - Attestation I have personally seen and examined this patient.: Yes I have fully participated in the care of the patient.: Yes I have reviewed all pertinent clinical information: Yes Notes (Text): Please see/read my dictated notes.
--- NOTE | 2017-11-14 14:51 | CP.PCM.CON ---
History of Present Illness - History of Present Illness History of Present Illness: General Surgery Consult Note for Dr. Pichardo Reason for Consult: Thrombosis of AVF, need dialysis access 57 F with PMH that includes HTN, hypothyroidism, ESRD on HD MWF presents to [facility] for complaint of LUE pain and swelling. Patient seen and evaluated in the ED. Patient states that her symptoms began last night while at home. Patient received normal HD without any issues early yesterday morning. Patient states that pain was accompanies by swelling and numbness/tingling. Pain was tolerable so she decided to call her [employer] Supervisor in the morning. Today, patient was instructed to come to ED for possible AVF failure. US duplex was done in ED and revealed thrombosis from elbow to distal forearm. Patient currently denying any pain or swelling. Denies fever/chills, sob, chest pain, abdominal pain, nausea/ vomiting, diarrhea, palpitations, lightheadedness, vertigo, syncope. PMD: Dr. Dilia Denise: Dr Tidwell PMH: as above Meds: As per MAY Allergy: NKDA PSH: fistulogram x 2 (1 stent), cimeo AVF in LUE, ex-lap FH: non-contributory Social: denies tobacco/EtOH/Illicit drug use, lives with family Review of Systems - Constitutional Constitutional: absent: Anorexia, Chills, Fever - EENT Eyes: absent: Blurred Vision, Change in Vision Ears: absent: Ear Pain, Tinnitus Nose/Mouth/Throat: absent: Nasal Discharge, Facial Pain - Breasts Breasts: absent: Mass, Nipple Discharge - Cardiovascular Cardiovascular: absent: Chest Pain, Chest Pain at Rest, Dyspnea, Lightheadedness - Respiratory Respiratory: absent: Cough, Dyspnea, Dyspnea on Exertion - Gastrointestinal Gastrointestinal: absent: Abdominal Pain, Cramping, Diarrhea, Hematemesis, Hematochezia, Nausea, Vomiting - Genitourinary Genitourinary: absent: Change in Urinary Stream, Difficulty Urinating, Dysuria - Integumentary Integumentary: absent: Change in Hair, Skin Pain, Skin Ulcer - Neurological Neurological: absent: Numbness, Tingling, Vertigo, Weakness - Psychiatric Psychiatric: absent: Anxiety, Depression - Endocrine Endocrine: absent: Palpitations, Polydipsia, Polyuria - Hematologic/Lymphatic Hematologic: absent: Easy Bleeding, Easy Bruising, Lymphadenopathy Past Patient History - Infectious Disease Hx of Infectious Diseases: None - Tetanus Immunizations Tetanus Immunization: Unknown - Past Medical History & Family History Past Medical History?: Yes Past Family History: Reviewed and not pertinent - Past Social History Smoking Status: Never Smoked Alcohol: None Drugs: Denies Home Situation {Lives}: With Family - CARDIAC Hx Congestive Heart Failure: Yes Hx Hypercholesterolemia: Yes Hx Hypertension: Yes - PULMONARY Hx Respiratory Disorders: Yes Hx Asthma: Yes Hx Tuberculosis: Yes - NEUROLOGICAL Hx Neurological Disorder: No Hx Alzheimer's Disease: No - HEENT Hx HEENT Problems: No - RENAL Hx Chronic Kidney Disease: Yes Hx Dialysis: Yes Type of Dialysis Access: AVF for HD Date of Last Dialysis Treatment: 11/13/17 - ENDOCRINE/METABOLIC Hx Endocrine Disorders: No - HEMATOLOGICAL/ONCOLOGICAL Hx Blood Disorders: No - INTEGUMENTARY Hx Dermatological Problems: No - MUSCULOSKELETAL/RHEUMATOLOGICAL Hx Musculoskeletal Disorders: No - GASTROINTESTINAL Hx Gastrointestinal Disorders: No - GENITOURINARY/GYNECOLOGICAL Hx Genitourinary Disorders: No - PSYCHIATRIC Hx Psychophysiologic Disorder: No Hx Emotional Abuse: No Hx Physical Abuse: No Hx Substance Use: No - SURGICAL HISTORY Other/Comment: abd sx 2006 - ANESTHESIA Hx Anesthesia: Yes Hx Anesthesia Reactions: No Hx Malignant Hyperthermia: No Meds Allergies/Adverse Reactions: Allergies Allergy/AdvReac Type Severity Reaction Status Date / Time No Known Allergies Allergy Verified 09/22/17 20:30 - Medications Medications: Current Medications Aspirin (Ecotrin) 81 mg PO DAILY [facility] Atorvastatin Calcium (Lipitor) 20 mg PO DIN [facility] Benzonatate (Tessalon Perles) 200 mg PO TID [facility] Ezetimibe (Zetia) 10 mg PO DAILY [facility] Famotidine (Pepcid) 20 mg PO 1000 [facility] Folic Acid (Folic Acid) 1 mg PO DAILY [facility] Hydralazine HCl (Apresoline) 25 mg PO TID [facility] Heparin Sodium/Sodium Chloride (Heparin 76560 Units/250ml 1/2 Normal Saline) 25 ,000 units in 250 mls @ 10 mls/hr IV .Q24H MELONIE; 1,000 UNITS/HR PRN Reason: Protocol Levalbuterol HCl (Xopenex) 0.63 mg IH [id number] [facility] Levothyroxine Sodium (Synthroid) 75 mcg PO DAILY [facility] Lisinopril (Zestril) 10 mg PO DAILY [facility] Metoprolol Tartrate (Lopressor) 25 mg PO DAILY [facility] Non-Formulary Medication (Linaclotide [Linzess]) 145 mcg PO DAILY [facility] Physical Exam - Constitutional Appears: Well, Non-toxic, No Acute Distress - Head Exam Head Exam: ATRAUMATIC, NORMOCEPHALIC - Eye Exam Eye Exam: EOMI, Normal appearance Pupil Exam: PERRL - ENT Exam ENT Exam: Mucous Membranes Moist - Respiratory Exam Respiratory Exam: NORMAL BREATHING PATTERN - Cardiovascular Exam Cardiovascular Exam: REGULAR RHYTHM - GI/Abdominal Exam GI & Abdominal Exam: Normal Bowel Sounds, Soft. absent: Distended, Firm, Guarding, Rigid, Tenderness - Extremities Exam Extremities exam: Positive for: normal capillary refill, pedal pulses present. Negative for: calf tenderness Additional comments: LUE: distal AVF (cimeo), radial ulnar pulses present, no appreciable thrill, Power trialysis catheter placed in Right femoral vein - Neurological Exam Neurological exam: Alert, Oriented x3 - Psychiatric Exam Psychiatric exam: Normal Affect, Normal Mood - Skin Skin Exam: Dry, Intact, Normal Color, Warm Results - Vital Signs Recent Vital Signs: Last Vital Signs Temp 97.9 F 11/14/17 09:30 Pulse 71 11/14/17 12:42 Resp 16 11/14/17 12:42 BP 117/79 11/14/17 12:42 Pulse Ox 97 11/14/17 12:42 - Labs Result Diagrams: 11/14/17 10:45 11/14/17 13:20 Assessment & Plan - Assessment and Plan (Free Text) Assessment: 57 F who presents for LUE AVF thrombosis and need for dialysis access Plan: -Power trialysis catheter placed in ED at bedside with US guidance -VBG confirms venous placement (pO2 35) -Continue dialysis MWF via catheter -Nephro consult, help appreciated -IR consult, help appreciated -Medical management as per primary -Further recommendations as per Dr. Kylee Christensen PGY2 - Date & Time Date: 11/14/17 Time: 15:00
[2017-11-14] MEDS ORDERED: HYDROmorphone 0.5 mg/0.5 ml ISec IVP STA (15:03)
[2017-11-14] MEDS ORDERED: Morphine 2 mg/ml ISec IVP STA (15:10)
[2017-11-14 16:10] LABS: VENOUS BLOOD GAS BASE EXCESS 8.6 mmol/L (0.0-2.0); VENOUS BLOOD GAS PO2 32 mm/Hg (30-55); VENOUS BLOOD PH 7.45 (7.32-7.43)
[2017-11-14] MEDS: Levalbuterol 0.63 MG/3 ML Inhal Soln UD IH SCH ×2 (16:40→20:01)
--- NOTE | 2017-11-14 17:01 | PCM.PROC ---
Procedures Attestation:: I certify that I have explained the specified Operation(s) or Procedure(s), risks, benefits and reasonable alternatives to the Patient and/or other person responsible. The opportunity was given to ask questions and all questions answered - Central Line Placement Right Femoral Hemodialysis Access Aseptic technique was employed throughout the procedure: Hand Hygiene done prior to procedure, Full sterile barriers (mask, hair cover, sterile gown, sterile gloves), Full body sterile drape, Chloraprep Antiseptic: 2 minute prep for Femoral CVP Time Out Performed: Yes Pt. Placed on Pulse Ox Monitor: Yes Central Line Prep: Chlorhexidine-Alcohol Combination Local Anesthesia Used: Lidocaine 1% Amount of Anesthesia Used (mls): 6 Ultrasound Used for Placement: Yes Central Line Lumen Inserted: triple Central Line Length: 20 cm Post Procedure: Sutured in Place, Good Blood Return, All Ports Aspirated, Flushed, Capped, Sterile Dressing Applied Secured by: Suture Post Procedure X-Ray: No Patient Tolerated Procedure: Well, No Complications Immediate Complications: None
[2017-11-14] MEDS ORDERED: Pneumococcal 23-Valent Vaccine IM ONE (21:27)
[2017-11-14] MEDS ORDERED: Morphine 2 mg/ml ISec IVP ONE (22:20)
[2017-11-15] MEDS: Levalbuterol 0.63 MG/3 ML Inhal Soln UD IH SCH ×4 (01:58→21:00)
--- NOTE | 2017-11-15 02:28 | CP.PCM.PN ---
Subjective - Date & Time of Evaluation Date of Evaluation: 11/15/17 Time of Evaluation: 02:24 - Subjective Subjective: Patient seen and examined at bedside for continued bleeding at femoral catheter insertion site [employer] was at bedside as well to evaluate the patient Patient was having some bleeding at site of catheter placement; however patient was stable; stable vital signs no hemodynamic instability; complaining of no symptoms No need for further intervention other than dressing change A: Bleeding at catheter insertion site P: Replaced old dressing with new dressing; held pressure to control minimal blood loss; repeat CBC pending New dressing was placed with gauze and tape Objective - Vital Signs/Intake and Output Vital Signs (last 24 hours): Temp Pulse Resp BP Pulse Ox 98.3 F 70 18 131/85 100 11/14/17 23:21 11/14/17 23:21 11/14/17 23:21 11/14/17 23:21 11/14/17 23:21 Intake and Output: 11/14/17 11/15/17 18:59 06:59 Intake Total 0 Balance 0 - Medications Medications: Current Medications Acetaminophen (Tylenol 325mg Tab) 650 mg PO Q6H PRN PRN Reason: Pain, Mild (1-3) Aspirin (Ecotrin) 81 mg PO DAILY [facility] Atorvastatin Calcium (Lipitor) 20 mg PO DIN [facility] Benzonatate (Tessalon Perles) 200 mg PO TID [facility] Last Admin: 11/14/17 16:39 Dose: 200 mg Diphenhydramine HCl (Benadryl) 25 mg PO ONCE PRN PRN Reason: Insomnia Ezetimibe (Zetia) 10 mg PO DAILY [facility] Ergocalciferol (Drisdol 50,000 Intl Units Cap) 1 cap PO SAT [facility] Famotidine (Pepcid) 20 mg PO 1000 [facility] Folic Acid (Folic Acid) 1 mg PO DAILY [facility] Hydralazine HCl (Apresoline) 25 mg PO TID [facility] Last Admin: 11/14/17 20:06 Dose: 25 mg Heparin Sodium/Sodium Chloride (Heparin 31962 Units/250ml 1/2 Normal Saline) 25 ,000 units in 250 mls @ 10 mls/hr IV .Q24H [facility]ELONIE; 1,000 UNITS/HR PRN Reason: Protocol Last Admin: 11/14/17 16:41 Dose: 1,000 units/hr, 10 mls/hr Levalbuterol HCl (Xopenex) 0.63 mg IH [id number] [facility] Last Admin: 11/15/17 01:58 Dose: Not Given Levothyroxine Sodium (Synthroid) 75 mcg PO DAILY [facility] Metoprolol Tartrate (Lopressor) 25 mg PO DAILY [facility] Last Admin: 11/14/17 16:40 Dose: 25 mg Non-Formulary Medication (Linaclotide [Linzess]) 145 mcg PO DAILY [facility] Sevelamer HCl (Renagel) 1,600 mg PO TID [facility] - Labs Labs: PT 10.7 SECONDS (9.4-12.5) 11/14/17 10:45 INR 0.93 11/14/17 10:45 APTT > 400.0 Seconds (25.1-36.5) H* 11/15/17 00:30
--- NOTE | 2017-11-15 02:30 | CP.PCM.PN ---
Subjective - Date & Time of Evaluation Date of Evaluation: 11/15/17 Time of Evaluation: 02:26 - Subjective Subjective: General Surgery Progress Note for Dr. Pichardo This 57F was seen and examined at 2:25am AM with the emergency medicine medical director due to concerns of bleeding at the dialysis cathether placement site. The Dressing was removed and minimal bleeding was noted from the insertion site, while continuous bleeding was slow. This concern was present at the time of placement due to known heparinization however the patient is in need of dialysis so the decision was made to place the catheter do to no other alternatives. Pressure dressing was placed of the skin insertion sit. Objective - Vital Signs/Intake and Output Vital Signs (last 24 hours): Temp Pulse Resp BP Pulse Ox 98.3 F 70 18 131/85 100 11/14/17 23:21 11/14/17 23:21 11/14/17 23:21 11/14/17 23:21 11/14/17 23:21 Intake and Output: 11/14/17 11/15/17 18:59 06:59 Intake Total 0 Balance 0 - Medications Medications: Current Medications Acetaminophen (Tylenol 325mg Tab) 650 mg PO Q6H PRN PRN Reason: Pain, Mild (1-3) Aspirin (Ecotrin) 81 mg PO DAILY [facility] Atorvastatin Calcium (Lipitor) 20 mg PO DIN [facility] Benzonatate (Tessalon Perles) 200 mg PO TID [facility] Last Admin: 11/14/17 16:39 Dose: 200 mg Diphenhydramine HCl (Benadryl) 25 mg PO ONCE PRN PRN Reason: Insomnia Ezetimibe (Zetia) 10 mg PO DAILY [facility] Ergocalciferol (Drisdol 50,000 Intl Units Cap) 1 cap PO SAT [facility] Famotidine (Pepcid) 20 mg PO 1000 [facility] Folic Acid (Folic Acid) 1 mg PO DAILY [facility] Hydralazine HCl (Apresoline) 25 mg PO TID [facility] Last Admin: 11/14/17 20:06 Dose: 25 mg Heparin Sodium/Sodium Chloride (Heparin 25675 Units/250ml 1/2 Normal Saline) 25 ,000 units in 250 mls @ 10 mls/hr IV .Q24H [facility]ELONIE; 1,000 UNITS/HR PRN Reason: Protocol Last Admin: 11/14/17 16:41 Dose: 1,000 units/hr, 10 mls/hr Levalbuterol HCl (Xopenex) 0.63 mg IH [id number] [facility] Last Admin: 11/15/17 01:58 Dose: Not Given Levothyroxine Sodium (Synthroid) 75 mcg PO DAILY [facility] Metoprolol Tartrate (Lopressor) 25 mg PO DAILY [facility] Last Admin: 11/14/17 16:40 Dose: 25 mg Non-Formulary Medication (Linaclotide [Linzess]) 145 mcg PO DAILY [facility] Sevelamer HCl (Renagel) 1,600 mg PO TID [facility] - Labs Labs: PT 10.7 SECONDS (9.4-12.5) 11/14/17 10:45 INR 0.93 11/14/17 10:45 APTT > 400.0 Seconds (25.1-36.5) H* 11/15/17 00:30 Assessment and Plan - Assessment and Plan (Free Text) Assessment: 57F with CKD s/p temporary dialysis catheter placement Ok to dialyze No surgical intervention at this time D/W Dr. Kylee Warner PGY3
[2017-11-15 03:06] LABS: BASO # 0.01 K/mm3 (0.0-2.0); BASO % 0.2 % (0.0-3.0); EOS # 0.3 (0.0-0.7); EOS % 5.3 % (1.5-5.0); GRAN # 3.36 (1.4-6.5); GRAN % 68.3 % (50.0-68.0); HEMOGLOBIN 10.8 g/dL (12.0-16.0); LYMPH % 19.5 % (22.0-35.0); MEAN CORPUSCULAR HEMOGLOBIN 30.8 pg (25.0-35.0); MEAN CORPUSCULAR HGB CONC 31.4 g/dl (31.0-37.0); MEAN PLATELET VOLUME 10.1 fl (7.0-11.0); MONO # 0.3 (0.1-0.6); MONO % 6.7 % (1.0-6.0); RBC 3.51 10^6/uL (3.5-6.1); WHITE BLOOD COUNT 4.9 10^3/ul (4.5-11.0)
[2017-11-15] MEDS ORDERED: Morphine 2 mg/ml ISec IVP STA (05:07)
[2017-11-15 05:43] LABS: HEMOGLOBIN 10.1 g/dL (12.0-16.0); MEAN CELL VOLUME 98.5 fl (80.0-105.0); MEAN CORPUSCULAR HEMOGLOBIN 30.7 pg (25.0-35.0); MEAN CORPUSCULAR HGB CONC 31.2 g/dl (31.0-37.0); MEAN PLATELET VOLUME 10.2 fl (7.0-11.0); RBC 3.29 10^6/uL (3.5-6.1); RED CELL DISTRIBUTION WIDTH 17.1 % (11.5-14.5); WHITE BLOOD COUNT 5.1 10^3/ul (4.5-11.0)
[2017-11-15 06:11] LABS: ALB/GLOB RATIO 1.2 (1.1-1.8); ALBUMIN 2.6 g/dL (3.0-4.8)
[2017-11-15 06:57] LABS: PARTIAL THROMBOPLASTIN TIME 40.8 Seconds (25.1-36.5); PROTHROMBIN TIME 11.5 SECONDS (9.4-12.5)
--- NOTE | 2017-11-15 08:29 | CP.PCM.PN ---
Subjective - Date & Time of Evaluation Date of Evaluation: 11/15/17 Time of Evaluation: 07:45 - Subjective Subjective: (covering for Dr. Dobbs) Patient is feeling better. Femoral catheter placed for temporary dialysis access. There was some small amount of bleeding at catheter site - now resolved. Objective - Vital Signs/Intake and Output Vital Signs (last 24 hours): Temp Pulse Resp BP Pulse Ox 98.3 F 65 18 121/80 100 11/15/17 06:00 11/15/17 06:00 11/15/17 06:00 11/15/17 06:00 11/15/17 06:00 Intake and Output: 11/15/17 11/15/17 06:59 18:59 Intake Total 86 Balance 86 - Medications Medications: Current Medications Acetaminophen (Tylenol 325mg Tab) 650 mg PO Q6H PRN PRN Reason: Pain, Mild (1-3) Aspirin (Ecotrin) 81 mg PO DAILY [facility] Atorvastatin Calcium (Lipitor) 20 mg PO DIN [facility] Benzonatate (Tessalon Perles) 200 mg PO TID [facility] Last Admin: 11/14/17 16:39 Dose: 200 mg Diphenhydramine HCl (Benadryl) 25 mg PO ONCE PRN PRN Reason: Insomnia Ezetimibe (Zetia) 10 mg PO DAILY [facility] Ergocalciferol (Drisdol 50,000 Intl Units Cap) 1 cap PO SAT [facility] Famotidine (Pepcid) 20 mg PO 1000 [facility] Folic Acid (Folic Acid) 1 mg PO DAILY [facility] Hydralazine HCl (Apresoline) 25 mg PO TID [facility] Last Admin: 11/14/17 20:06 Dose: 25 mg Heparin Sodium/Sodium Chloride (Heparin 68512 Units/250ml 1/2 Normal Saline) 25 ,000 units in 250 mls @ 10 mls/hr IV .Q24H [facility]; 1,000 UNITS/HR PRN Reason: Protocol Last Titration: 11/15/17 06:54 Dose: 947 units/hr, 9.47 mls/hr Levalbuterol HCl (Xopenex) 0.63 mg IH [id number] [facility] Last Admin: 11/15/17 07:38 Dose: 0.63 mg Levothyroxine Sodium (Synthroid) 75 mcg PO DAILY [facility] Metoprolol Tartrate (Lopressor) 25 mg PO DAILY [facility] Last Admin: 11/14/17 16:40 Dose: 25 mg Non-Formulary Medication (Linaclotide [Linzess]) 145 mcg PO DAILY [facility] - Labs Labs: 11/15/17 05:25 11/15/17 05:25 PT 11.5 SECONDS (9.4-12.5) 11/15/17 05:25 INR 1.00 11/15/17 05:25 APTT 40.8 Seconds (25.1-36.5) H 11/15/17 05:25 - Constitutional Appears: No Acute Distress - Head Exam Head Exam: ATRAUMATIC, NORMOCEPHALIC - Respiratory Exam Respiratory Exam: Clear to Ausculation Bilateral, NORMAL BREATHING PATTERN - Cardiovascular Exam Cardiovascular Exam: +S1, +S2 - GI/Abdominal Exam GI & Abdominal Exam: Soft, Normal Bowel Sounds. absent: Tenderness - Neurological Exam Neurological Exam: Alert, Awake, Oriented x3 Assessment and Plan - Assessment and Plan (Free Text) Assessment: Left radiocephalic AV fistula thrombosis ESRD on HD non-ischemic dilated cardiomyopathy HTN HLP Hypothyroidism GERD [place] Plan: Patient on heparin drip for Left AV fistula thrombosis. temporary dialysis catheter placed and patient is scheduled for dialysis today. Surgery, IR, nephrology and cardiology on case.
--- NOTE | 2017-11-15 09:09 | RAD ---
Date of service: 11/14/2017 HISTORY: DIALYSIS CATHETER PLACEMENT COMPARISON: 10/28/2017 TECHNIQUE: Chest PA and lateral FINDINGS: LUNGS: No active pulmonary disease. PLEURA: No significant pleural effusion identified. No pneumothorax apparent. CARDIOVASCULAR: Mild cardiomegaly OSSEOUS STRUCTURES: No significant abnormalities. VISUALIZED UPPER ABDOMEN: Normal. OTHER FINDINGS: None. IMPRESSION: No active disease.
--- NOTE | 2017-11-15 09:14 | HP ---
Copied To: Jose Dobbs MD Attending MD: Jose Dobbs MD HISTORY OF PRESENT ILLNESS: The patient is a 57-year-old [place] female presented to the emergency room today with complaints of pain in the left AV fistula and swelling of the left upper extremity AV fistula. The patient noticed these symptoms in the last 24 hours. Most of the history was given by the patient's [id number] Jeffy. The patient was seen in bed #16 in the emergency room. CODE STATUS: Full code. LIVING WILL ADVANCE DIRECTIVE: None. ALLERGIES: NONE. HEIGHT: 5 feet 2 inches. WEIGHT: 122. BODY MASS INDEX: 22.4. SOCIAL HISTORY: Negative for smoking. Negative for alcohol. Negative for drug use. Negative for communicable or transmissible disease. MENSTRUAL HISTORY: Postmenopausal. FAMILY HISTORY: Positive for hypertension. OCCUPATIONAL HISTORY: Disabled. PAST MEDICAL HISTORY: History of abdominal tuberculosis, history of end-stage renal disease, hemodialysis dependent via the left upper extremity AV fistula 3 times a week, history of nonischemic dilated cardiomyopathy, history of hypertension, history of hyperkalemia, history of hypovitaminosis D, history of osteoporosis, significant for systolic congestive heart failure with pulmonary vascular congestion, history of left lower lobe pneumonia, history of left lower lobe consolidation, history of pleural effusion, history of mediastinal lymphadenopathy. history of adrenal gland thickening, history of leukopenia, history of hyperphosphatemia and secondary hyperparathyroidism, history of vitamin B12 deficiency, history of hypothyroidism, history of constipation, history of cardiomegaly, history of bibasilar atelectasis with multifocal inhomogeneous pulmonary opacities and small airway disease, history of hypertensive cardiovascular disease with inferolateral ST changes, history of dilated cardiomyopathy with left ventricular ejection fraction of 28%, history of [id number]-ws-afwvum pulmonary hypertension with right ventricular systolic pressure of 71 mmHg, history of moderately dilated and severely impaired left ventricular systolic function with global left ventricular hypokinesis, history of hypoxemia, history of moderate mitral regurgitation, cueljwrr-nn-[id number] tricuspid regurgitation, history of cardiac catheterization done in 2013, history of hyperlipidemia, also significant for dietary noncompliance, history of anemia, history of bilateral renal cyst, history of pancreatitis, history of septic shock, history of ascites, gastritis, gastroduodenitis, 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 MEDICATIONS: The patient was recently discharged about 2 weeks ago from [facility]. The patient's last discharge medications are as follows, Ecotrin 81 mg daily, Tessalon Perles 200 three times a day, Prolia 60 mg every 6 months, vitamin D 50,000 units weekly, Vytorin 10/40 daily, folic acid 1 mg daily, hydralazine 25 mg three times a day, Synthroid mcg daily, Lopressor 25 mg daily, Renvela 2 tablets three times a day. PHYSICAL EXAMINATION: GENERAL: The patient is seen in stretcher 16. The patient is seen lying in the bed. VITAL SIGNS: T-max is 98.6; pulse 60, 75, 70, 85; respirations 18 to 20; blood pressure is 143/91, 131/85, 143/93, 117/79. HEAD: Normocephalic, atraumatic. HEENT: Shows pink conjunctivae. Anicteric sclerae. No oropharyngeal lesion. NECK: No neck rigidity. CHEST: Kyphosis. LUNGS: Shows positive rhonchi, left more than the right. CARDIOVASCULAR: S1 and S2, regular rhythm. Positive systolic murmur in left sternal border, right second intercostal space, left second intercostal space. ABDOMEN: Soft. Positive bowel sounds. Surgical scar of the abdomen noted. GENITALIA: Female. RECTAL: Deferred. EXTREMITIES: Shows positive left upper extremity AV fistula, no thrill noted. Positive pulses noted. The lower extremity shows no pitting edema, no calf tenderness, no Homans sign. NEUROLOGIC: The patient is alert, awake, oriented x3. Cranial nerves II through XII limited. GAIT: Not tested. MUSCULOSKELETAL: Shows a body mass index of 22.4. PSYCHIATRIC: Negative. DIAGNOSTICS: CBC shows WBC of 4.7, hemoglobin and hematocrit of 11.2 and 36.4, platelet 152. Granulocytes, 73% segs. PT/PTT of 10.7/32.9. Sodium 137, potassium 5.2, chloride 99, CO2 of 31, anion gap 12, BUN 29, creatinine 4.9. GFR 11, calcium 6.4, phosphorus 3.5, magnesium 2.8. The patient had hemodialysis access duplex done, the results of which were noted. The patient's EKG was done, the results was noted. The patient was seen in the emergency room by the physician emergency medicine physician assistant in the emergency room. Stat Vascular Surgery and Interventional Radiology consultation was requested in the emergency room. The patient was evaluated. IMPRESSION AND PLAN 1. Thrombosed left radiocephalic arteriovenous fistula from the distal forearm to the elbow without stenosis of the arterial anastomosis. 2. Hypertensive cardiovascular disease. 3. Hypertension. 4. Normocytic anemia. 5. End-stage renal disease, hemodialysis dependent. 6. Non-hemolyzed hyperkalemia. 7. Hypocalcemia. 8. Granulocytosis. 9. Left upper extremity pain and swelling secondary to acute left upper extremity arteriovenous fistula thrombosis. 10. Nonischemic dilated cardiomyopathy. 11. Hypothyroidism. 12. Hyperlipidemia. 13. Status post ultrasound-guided dialysis catheter placement. 14. History of constipation. Plan at this time, the patient is to be admitted to [facility]. The patient was seen in the emergency room by urgent Interventional Radiology and Vascular Surgery consultation. Interventional Radiology recommended the patient to be started on heparin. Dr. Jaguar Dobbs was contacted on Interventional Radiology consultation. He recommends to start IV heparin and to place temporary access dialysis catheter. The patient was evaluated in the emergency room by the Vascular Surgery group. IV heparin drip has been ordered. The patient has been ordered daily PT/PTT, daily CBC, CMP, magnesium, phosphorus. The patient has been ordered consultation with Vascular Surgery, Nephrology, Interventional Radiology. Cardiology consultation ordered. The patient has been typed and crossmatched. CURRENT MEDICATION: Hydralazine 25 mg three times a day, Benadryl 25 mg p.o. p.r.n., Caltrate 600 mg daily, Ecotrin 81 mg daily, folic acid 1 mg daily, heparin drip started, Linzess 145 mcg daily, Lipitor 20 mg daily, Lopressor 25 mg daily, Pepcid 20 mg daily, Synthroid 75 mcg daily, Tylenol p.r.n., Xopenex nebulizer 0.63 mg every 6 hours around the clock has been ordered. The patient is on Zetia 10 mg daily. Heart-healthy diet ordered. The patient has been ordered chest x-ray PA and lateral. Chest x-ray has been ordered for dialysis catheter placement. At present, the patient's condition, diagnoses, treatment plan, need for hospitalization, need for further diagnostic therapeutic intervention discussed with the patient and the patient's [id number] Jeffy Casanova. All questions and concerns answered. At present, the patient will be admitted to [facility]. The patient's further management will be dependent upon the patient's clinical condition, hemodynamic status and as per the patient response to therapeutic intervention, and as per recommendation by Vascular Surgery, Nephrology, Interventional Radiology and Cardiology. Dictated and electronically signed, not read. Jose Dobbs MD
--- NOTE | 2017-11-15 09:35 | CARD ---
APPROVED REPORT Date of service: 11/14/2017 EKG Measurement Heart [id number] <Conclusion> Normal sinus rhythm Left ventricular hypertrophy with repolarization abnormality Prolonged QT STTW changes No change
--- NOTE | 2017-11-15 10:41 | NM ---
Date of service: 11/15/2017 COMPARISON: Two-view chest 11/14/2017 TECHNIQUE: 30.0 mCi technetium 99-m DTPA inhaled 2.5 mCI technetium 99-m MAA administered intravenously. FINDINGS: VENTILATION COMPONENT: Normal. PERFUSION COMPONENT: Normal. IMPRESSION: Lowprobability ventilation perfusion scan for pulmonary embolism.
--- NOTE | 2017-11-15 12:29 | CON ---
Copied To: Shun Rosa MD Attending MD: Shun Rosa MD DATE: 11/15/2017 CARDIOLOGY CONSULTATION HISTORY: The patient is a 57-year-old woman, presented with issues with her access for dialysis. The patient's past medical history is notable for hypertension, hypercholesterolemia. The patient has a documented history of a dilated cardiomyopathy with an ejection fraction of 25-30%. She has had no documented coronary artery disease. She presents without shortness of breath, without angina. SOCIAL HISTORY: The patient is independent in home. Does not smoke. REVIEW OF SYSTEMS: Free of cardiac symptomatology. PHYSICAL EXAMINATION: VITAL SIGNS: Blood pressure is 121/80, the heart rate is in the 60s. NECK: Negative JVD. LUNGS: Without rales. HEART: Reveals S1, S2. EXTREMITIES: Without edema. LABORATORY DATA: EKG is normal sinus rhythm with diffuse ST-T changes consistent with LVH. Hemoglobin is 10.1. Chemistries: BUN and creatinine of 34 and 6.3 with a potassium of 5.4. IMPRESSION: 1. Dilated cardiomyopathy. 2. No evidence for congestive heart failure. 3. History of nonobstructive coronary artery disease. 4. Hypertension. 5. End-stage renal disease. 6. Hypercholesterolemia. PLAN: Given these findings, the patient is at moderate risk for anesthesia given her chronic dilated cardiomyopathy. There is no evidence for CHF. The patient is at her optimum at this time. Shun Rosa MD
--- NOTE | 2017-11-15 12:58 | CON ---
Copied To: Deisy Tidwell MD Attending MD: Deisy Tidwell MD DATE: 11/15/2017 REASON FOR CONSULTATION: Clotted AV access, hyperkalemia. HISTORY OF PRESENTING ILLNESS: A 57-year-old lady, well known to me from outpatient hemodialysis. The patient presented to the emergency room yesterday with complaints of swelling and pain in her left forearm. The patient reported that on Saturday, post dialysis, there was stabbing pain in her left forearm, i.e. the access arm. Subsequently, she felt whooshing noise in the left forearm, which kind of disappeared in the middle of the night. She presented to the emergency room yesterday. The patient denied any tingling or numbness in the fingers. She denies any weakness of the arm. She denied any fever. She denied any chills. No redness. In the emergency room, the patient had an ultrasound done, which revealed thrombosed left radiocephalic fistula from the distal forearm to the elbow. The patient also had a V/Q scan done last night, which showed a low probability for pulmonary embolism. The patient was started on heparin. Case was discussed with Dr. Jaguar Dobbs yesterday by me. The plan is for declot today. The patient also had a temporary catheter put in in her right groin yesterday. Currently, the patient is lying in bed. She does not appear to be in any kind of distress. PAST MEDICAL AND SURGICAL HISTORY: Hypertension, left ventricular hypertrophy, hypertensive heart disease, decreased ejection fraction of 30%, hyperlipidemia, hypothyroidism, CHF, ESRD, left AV fistula. FAMILY HISTORY: Hypertension. SOCIAL HISTORY: No smoking, no alcohol use, no IV drug abuse. ALLERGIES: NO KNOWN DRUG ALLERGIES. MEDICATIONS: Hydralazine 25 t.i.d., Lopressor 25 daily, Synthroid, Vytorin, Renvela, Prolia. REVIEW OF SYSTEMS: All systems are reviewed, pertinent positives as mentioned in the history of presenting illness, rest unremarkable. PHYSICAL EXAMINATION: GENERAL: Elderly lady, lying in bed, in no acute distress. VITAL SIGNS: Blood pressure 131/85, heart rate 70, respiratory rate 18, temperature 98.3. HEENT: Normocephalic, atraumatic, positive pallor. NECK: Supple. No JVD. LUNGS: Bilateral equal air entry, bilateral equal expansion. CARDIAC: S1 and S2, regular rate and rhythm, no murmur, no rub. ABDOMEN: Soft, nondistended, nontender, bowel sounds present. EXTREMITIES: No lower extremity edema. There is faint bruit at the left wrist. LABORATORY DATA: WBC 5.1, hemoglobin 10, hematocrit 32, platelets 116. Sodium 137, potassium 5.4, chloride 100, CO2 of 31, BUN 34, creatinine 6.3, glucose 82, calcium 6, phosphorus 3.7, magnesium 2.8, albumin 2.6. ASSESSMENT: 1. Hyperkalemia. 2. Clotted left arteriovenous fistula. 3. Hypertension well controlled. 4. Hypocalcemia. 5. Anemia of chronic kidney disease. PLAN: 1. Check intact PTH levels. 2. Dialyze with calcium 3 bath. 3. Continue heparin as per Dr. Dobbs. 4. For declot today. 5. Continue current antihypertensive regimen. Thank you for the courtesy of this consultation. We will follow this patient closely with you. Deisy Tidwell MD
[2017-11-15] MEDS ORDERED: Nitroglycerin 50mg in D5W 0 MG/0 ML BOTTLE IV ONE (14:39)
[2017-11-15] MEDS ORDERED: Iodixanol 320 mg/ml 150 ml Bottle IV ONE (14:39)
[2017-11-15] MEDS ORDERED: Midazolam 2 MG/2 ML VIAL ONE (15:00)
--- NOTE | 2017-11-15 15:39 | PCM.SURG1 ---
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 In stent stenosis outflow cephalic vein. Normal central venogram Post-Operative Diagnosis: Thrombosed left radiocephalic AVF Operation Performed: Left radiocephalic AVF thrombectomy, NUTRITIONAL [employer] HOST outflow vein stenosis, subclavian vein stenosis. Specimen/Specimens Removed: NONE Estimated Blood Loss: EBL {In ML}: 10 Blood Products Given: N/A Drains Used: No Drains Post-Op Condition: Fair Date of Surgery/Procedure: 11/15/17 Time of Surgery/Procedure: 15:30
[2017-11-15] MEDS: Levothyroxine 75 MCG TAB PO SCH (18:34)
[2017-11-15] MEDS: Non Formulary Medication (Linaclotide [Linzess] 145 MCG) PO SCH (18:35)
[2017-11-15] MEDS ORDERED: Heparin25000 units/250ml 1/2NS 25,000 UNITS/250 ML BAG IV SCH ×2 (23:45)
[2017-11-16] MEDS: Levalbuterol 0.63 MG/3 ML Inhal Soln UD IH SCH ×4 (02:49→19:50)
--- NOTE | 2017-11-16 07:09 | CP.PCM.PN ---
Subjective - Date & Time of Evaluation Date of Evaluation: 11/16/17 Time of Evaluation: 07:07 - Subjective Subjective: Was asked to co sign order for heparin. Earlier I had peeked at patient in her room who was sleeping had oozing of blood in arm , no bleeding in groin area as per nurse. Spoke to nurse again in the morning as per whom lpn or medical assistant evaluated patient now , spoke to attending and was asked to continue heparin. Objective - Vital Signs/Intake and Output Vital Signs (last 24 hours): Temp Pulse Resp BP Pulse Ox 98 F 72 18 95/58 L 97 11/15/17 22:00 11/15/17 22:00 11/15/17 22:00 11/15/17 22:00 11/15/17 22:00 Intake and Output: 11/16/17 11/16/17 06:59 18:59 Intake Total 320 Output Total 0 Balance 320 - Medications Medications: Current Medications Acetaminophen (Tylenol 325mg Tab) 650 mg PO Q6H PRN PRN Reason: Pain, Mild (1-3) Aspirin (Ecotrin) 81 mg PO DAILY [facility] Last Admin: 11/15/17 18:33 Dose: 81 mg Atorvastatin Calcium (Lipitor) 20 mg PO DIN [facility] Last Admin: 11/15/17 18:34 Dose: 20 mg Benzonatate (Tessalon Perles) 200 mg PO TID [facility] Last Admin: 11/15/17 18:37 Dose: 200 mg Diphenhydramine HCl (Benadryl) 25 mg PO ONCE PRN PRN Reason: Insomnia Ezetimibe (Zetia) 10 mg PO DAILY [facility] Last Admin: 11/15/17 18:34 Dose: 10 mg Ergocalciferol (Drisdol 50,000 Intl Units Cap) 1 cap PO SAT [facility] Famotidine (Pepcid) 20 mg PO 1000 [facility] Last Admin: 11/15/17 18:35 Dose: 20 mg Folic Acid (Folic Acid) 1 mg PO DAILY [facility] Last Admin: 11/15/17 18:34 Dose: 1 mg Hydralazine HCl (Apresoline) 25 mg PO TID [facility] Last Admin: 11/15/17 18:34 Dose: 25 mg Heparin Sodium/Sodium Chloride (Heparin 84377 Units/250ml 1/2 Normal Saline) 25 ,000 units in 250 mls @ 10 mls/hr IV .Q24H [facility]; 1,000 UNITS/HR PRN Reason: Protocol Last Admin: 11/16/17 00:35 Dose: 1,000 units/hr, 10 mls/hr Levalbuterol HCl (Xopenex) 0.63 mg IH [id number] [facility] Last Admin: 11/16/17 02:49 Dose: Not Given Levothyroxine Sodium (Synthroid) 75 mcg PO DAILY [facility] Last Admin: 11/15/17 18:34 Dose: 75 mcg Metoprolol Tartrate (Lopressor) 25 mg PO DAILY [facility] Last Admin: 11/15/17 18:34 Dose: 25 mg Non-Formulary Medication (Linaclotide [Linzess]) 145 mcg PO DAILY [facility] Last Admin: 11/15/17 18:35 Dose: Not Given - Labs Labs: 11/15/17 05:25 11/15/17 05:25 PT 11.5 SECONDS (9.4-12.5) 11/15/17 05:25 INR 1.00 11/15/17 05:25 APTT 197.5 Seconds (25.1-36.5) H* 11/15/17 20:25
[2017-11-16 07:28] LABS: HEMOGLOBIN 9.6 g/dL (12.0-16.0); MEAN CELL VOLUME 97.8 fl (80.0-105.0); MEAN CORPUSCULAR HEMOGLOBIN 30.1 pg (25.0-35.0); MEAN CORPUSCULAR HGB CONC 30.8 g/dl (31.0-37.0); MEAN PLATELET VOLUME 10.9 fl (7.0-11.0); RBC 3.19 10^6/uL (3.5-6.1); RED CELL DISTRIBUTION WIDTH 16.8 % (11.5-14.5); WHITE BLOOD COUNT 5.4 10^3/ul (4.5-11.0)
[2017-11-16 07:44] LABS: INR 1.14; PROTHROMBIN TIME 13.2 SECONDS (9.4-12.5)
[2017-11-16 07:58] LABS: ALB/GLOB RATIO 1.2 (1.1-1.8); ALBUMIN 2.7 g/dL (3.0-4.8); CALCIUM 5.8 mg/dL (8.4-10.5)
[2017-11-16 08:06] LABS: PARTIAL THROMBOPLASTIN TIME 224.3 Seconds (25.1-36.5)
[2017-11-16] MEDS ORDERED: Heparin25000 units/250ml 1/2NS 25,000 UNITS/250 ML BAG IV PRN ×3 (08:14→23:39)
[2017-11-16] MEDS ORDERED: Heparin25000 units/250ml 1/2NS 25,000 UNITS/250 ML BAG IV SCH (08:14)
[2017-11-16] MEDS ORDERED: Ergocalciferol 50,000 Intl Units Cap PO SCH (10:00)
[2017-11-16] MEDS: Levothyroxine 75 MCG TAB PO SCH (10:45)
[2017-11-16] MEDS: Non Formulary Medication (Linaclotide [Linzess] 145 MCG) PO SCH (10:46)
--- NOTE | 2017-11-16 12:18 | CP.PCM.PN ---
Subjective - Date & Time of Evaluation Date of Evaluation: 11/16/17 Time of Evaluation: 10:00 - Subjective Subjective: Patient being seen for Dr. Tidwell/Andria: 57 yo F w/ PMH of ESRD on HD (MWF), multiple episodes of thrombosed left radiocephalic AV fistula with prior stenting by Dr. Shun Abbott, nonischemic dilated cardiomyopathy, HTN, HLD, hypothyroidism, miliary TB, GERD and bronchial asthma, admitted with thrombosed L RC AVF; Patient s/p thrombectomy of AVF yesterday, received HD session via temp femoral catheter yesterday; blood noted to be oozing from catheter site overnight and this morning with patient on heparin drip; patient otherwise feels well; no shortness of breath; Objective - Vital Signs/Intake and Output Vital Signs (last 24 hours): Temp Pulse Resp BP Pulse Ox 98.5 F 69 18 108/65 97 11/16/17 06:00 11/16/17 06:00 11/16/17 06:00 11/16/17 06:00 11/16/17 06:00 Intake and Output: 11/16/17 11/16/17 06:59 18:59 Intake Total 320 Output Total 0 Balance 320 - Medications Medications: Current Medications Acetaminophen (Tylenol 325mg Tab) 650 mg PO Q6H PRN PRN Reason: Pain, Mild (1-3) Aspirin (Ecotrin) 81 mg PO DAILY [facility] Last Admin: 11/16/17 10:45 Dose: 81 mg Atorvastatin Calcium (Lipitor) 20 mg PO DIN [facility] Last Admin: 11/15/17 18:34 Dose: 20 mg Benzonatate (Tessalon Perles) 200 mg PO TID [facility] Last Admin: 11/16/17 10:45 Dose: 200 mg Calcitriol (Rocaltrol) 1 mcg PO DAILY [facility] Stop: 11/17/17 10:01 Last Admin: 11/16/17 10:44 Dose: 1 mcg Calcium Carbonate (Oscal) 1,000 mg PO Q6H [facility] Stop: 11/17/17 04:16 Last Admin: 11/16/17 10:45 Dose: 1,000 mg Diphenhydramine HCl (Benadryl) 25 mg PO ONCE PRN PRN Reason: Insomnia Ezetimibe (Zetia) 10 mg PO DAILY [facility] Last Admin: 11/16/17 10:45 Dose: 10 mg Ergocalciferol (Drisdol 50,000 Intl Units Cap) 1 cap PO SAT [facility] Last Admin: 11/16/17 10:45 Dose: 1 cap Famotidine (Pepcid) 20 mg PO 1000 [facility] Last Admin: 11/16/17 10:45 Dose: 20 mg Folic Acid (Folic Acid) 1 mg PO DAILY [facility] Last Admin: 11/16/17 10:45 Dose: 1 mg Hydralazine HCl (Apresoline) 25 mg PO TID [facility] Last Admin: 11/16/17 10:46 Dose: Not Given Heparin Sodium/Sodium Chloride (Heparin 12520 Units/250ml 1/2 Normal Saline) 25 ,000 units in 250 mls @ 8.165 mls/hr IV .Q24H PRN; Protocol; 15 UNITS/KG/HR PRN Reason: ADJUST RATE PER PROTOCOL Last Admin: 11/16/17 10:05 Dose: 15 units/kg/hr, 8.165 mls/hr Levalbuterol HCl (Xopenex) 0.63 mg IH [id number] [facility] Last Admin: 11/16/17 07:37 Dose: 0.63 mg Levothyroxine Sodium (Synthroid) 75 mcg PO DAILY [facility] Last Admin: 11/16/17 10:45 Dose: 75 mcg Metoprolol Tartrate (Lopressor) 25 mg PO DAILY [facility] Last Admin: 11/16/17 10:46 Dose: Not Given Non-Formulary Medication (Linaclotide [Linzess]) 145 mcg PO DAILY [facility] Last Admin: 11/16/17 10:46 Dose: Not Given - Labs Labs: 11/16/17 06:30 11/16/17 06:30 PT 13.2 SECONDS (9.4-12.5) H 11/16/17 06:30 INR 1.14 11/16/17 06:30 APTT 224.3 Seconds (25.1-36.5) H* 11/16/17 06:30 - Constitutional Appears: Non-toxic, No Acute Distress - Eye Exam Eye Exam: Normal appearance - Respiratory Exam Respiratory Exam: Clear to Ausculation Bilateral. absent: Respiratory Distress - Cardiovascular Exam Cardiovascular Exam: RRR, +S1, +S2. absent: Gallop, JVD, Rubs - GI/Abdominal Exam GI & Abdominal Exam: Soft. absent: Distended, Tenderness - Extremities Exam Additional comments: no leg swelling; - Neurological Exam Neurological Exam: Alert, Awake - Psychiatric Exam Psychiatric exam: Normal Affect, Normal Mood. absent: Agitated - Skin Skin Exam: Warm. absent: Cyanosis Assessment and Plan (1) ESRD (end stage renal disease) on dialysis Assessment & Plan: Mild hyperkalemia but persistent despite HD yesterday; likely poor dialysis clearance using temp femoral cath; dialyzing again today mainly for clearance on 2K/3Ca dialysate with UF goal 0.5-1L over 3 hrs using declotted AVF; Status: Acute (2) Dialysis AV fistula malfunction Assessment & Plan: Discussed with IR attending today; had clot involving aneurysm of AVF; will attempt to use AVF today, if successful and no clots passed, should stop heparin drip; continue heparin drip for now; Status: Acute (3) Electrolyte imbalance Assessment & Plan: Hypocalcemia of new onset, coinciding with starting sensipar on 11/13 on HD; with concomitant QT prolongation; dialyzing today on higher Ca dialysate and giving calcitriol/PO calcium carbonate; Status: Acute (4) QT prolongation Status: Acute (5) Hypertensive CKD, ESRD on dialysis Assessment & Plan: BP low/normal; hold hydralazine for now; continue with metoprolol; Status: Acute
[2017-11-16] MEDS: POLYETHYLENE GLYCOL 3350 17 GM/Dose PACKET PO SCH (23:25)
[2017-11-17] MEDS: Levalbuterol 0.63 MG/3 ML Inhal Soln UD IH SCH ×4 (01:13→20:00)
[2017-11-17 07:17] LABS: HEMOGLOBIN 8.2 g/dL (12.0-16.0); MEAN CELL VOLUME 96.6 fl (80.0-105.0); MEAN CORPUSCULAR HEMOGLOBIN 30.8 pg (25.0-35.0); MEAN CORPUSCULAR HGB CONC 31.9 g/dl (31.0-37.0); MEAN PLATELET VOLUME 10.9 fl (7.0-11.0); RBC 2.66 10^6/uL (3.5-6.1); RED CELL DISTRIBUTION WIDTH 16.6 % (11.5-14.5); WHITE BLOOD COUNT 3.4 10^3/ul (4.5-11.0)
[2017-11-17 07:18] LABS: INR 1.07; PARTIAL THROMBOPLASTIN TIME 53.6 Seconds (25.1-36.5); PROTHROMBIN TIME 12.3 SECONDS (9.4-12.5)
[2017-11-17 08:49] LABS: ALB/GLOB RATIO 1.1 (1.1-1.8); ALBUMIN 2.2 g/dL (3.0-4.8); CALCIUM 7.1 mg/dL (8.4-10.5)
[2017-11-17] MEDS ORDERED: Darbepoetin Alfa 60 mcg/ml Inj SC ONE (09:12)
[2017-11-17] MEDS: Levothyroxine 75 MCG TAB PO SCH (09:53)
[2017-11-17] MEDS: POLYETHYLENE GLYCOL 3350 17 GM/Dose PACKET PO SCH ×3 (09:54→17:43)
[2017-11-17] MEDS: Non Formulary Medication (Linaclotide [Linzess] 145 MCG) PO SCH (09:54)
--- NOTE | 2017-11-17 15:02 | PN ---
Copied To: Jose Dobbs MD Attending MD: Jose Dobbs MD DATE: 11/17/2017 SUBJECTIVE: The patient is seen lying in the bed in room 261, bed 2. Overnight events in the last 24 to 48 hours were reviewed. The patient's right groin dialysis catheter has been removed. Right groin dialysis catheter site is no more bleeding. The patient's left upper extremity fistula shows positive thrill and positive pulses. PHYSICAL EXAMINATION: VITAL SIGNS: T-max 98.4 to 98.6. Telemetry shows sinus rhythm, heart rate 65, 73, and 71; blood pressure 103/67, 88/55, 108/68, 88/54, 108/65, 95/88; respirations 18; O2 sat 96%. GENERAL: The patient is seen lying in the bed. HEENT: Head: Normocephalic, atraumatic. Pale conjunctivae. Anicteric sclerae. No oropharyngeal lesion. NECK: No neck rigidity. CHEST: Kyphosis. LUNGS: Show no rales, crackles, or wheezing. CARDIOVASCULAR: S1 and S2, regular rhythm. Questionable soft systolic murmur in the left sternal border, right second intercostal space, left second intercostal space. ABDOMEN: Soft. Positive bowel sounds. Healed surgical scar of abdominal surgery. GENITALIA: Female. RECTAL: Deferred. EXTREMITIES: Right groin and right thigh examination shows no hematoma. Positive pulses. Lower extremity shows no pitting edema, no calf tenderness, no Juanita signs. Upper extremity shows positive left upper extremity AV fistula, positive thrill. NEUROLOGIC: Gait examination is not tested. MUSCULOSKELETAL: Shows a body mass index of 22. DIAGNOSTICS: 11/17/2017: WBC 3.4, hemoglobin and hematocrit 8.2 and 25.7, and platelets 90,000. PT and PTT 12.3, 53.6. Dr. Green has ordered to stop the heparin drip. Sodium 136, potassium 4.8, chloride 103, CO2 of 27, anion gap 12. BUN 19, creatinine 4.4. GFR 12. Glucose 85. Calcium is up to 7.1, phosphorus 3.7, magnesium 2.6, total protein 4.2, albumin 2.2. HIV is nonreactive. IMPRESSION: 1. Left upper extremity radiocephalic arteriovenous fistula partial thrombosis from the distal forearm to the elbow without stenosis of the arterial anastomosis. 2. Hypertension. 3. Right groin femoral dialysis catheter site bleeding, status post removal of the right groin dialysis catheter. 4. Leukopenia, anemia, thrombocytopenia, and pancytopenia. 5. Granulocytosis. 6. Iatrogenic coagulopathy secondary to heparin. 7. End-stage renal disease, hemodialysis dependent. 8. Non-hemolyzed hyperkalemia. 9. Hypocalcemia. 10. Hyperphosphatemia. 11. Secondary hyperparathyroidism secondary to end-stage renal disease, hemodialysis dependent. 12. Protein malnutrition and hypoalbuminemia. 13. Nonischemic dilated cardiomyopathy. 14. Acute blood loss anemia secondary to right groin dialysis catheter bleeding. 15. Absent flow in the left basilic vein and cephalic vein. 16. Arteriovenous fistula malfunction. 17. 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 18. Status post left upper extremity radiocephalic arteriovenous fistula thrombectomy, percutaneous transluminal angioplasty of the outflow vein stenosis and subclavian vein stenosis. 1. Thrombosed left radiocephalic arteriovenous fistula from the distal forearm to the elbow without stenosis of the arterial anastomosis. 2. Hypertensive cardiovascular disease. 3. Hypertension. 4. Normocytic anemia. 5. End-stage renal disease, hemodialysis dependent. 6. Non-hemolyzed hyperkalemia. 7. Hypocalcemia. 8. Granulocytosis. 9. Left upper extremity pain and swelling secondary to acute left upper extremity arteriovenous fistula thrombosis. 10. Nonischemic dilated cardiomyopathy. 11. Hypothyroidism. 12. Hyperlipidemia. 13. Status post ultrasound-guided dialysis catheter placement. 14. History of constipation. PLAN: At this time, the patient's heparin has been stopped by Dr. Green. The patient has been ordered serial labs. The patient has been ordered heparin-induced platelet antibody. Daily PT/PTT has been ordered. CBC has been ordered. Current consultation: Vascular Surgery, Nephrology, Interventional Radiology, Cardiology. The patient has been typed and crossmatched. The patient will be ordered 1 unit of PRBC today over 3 hours, which has been discussed with Nephrology. The patient has been given Aranesp 60 mcg x1. The patient is on Drisdol 50,000 units weekly. The patient is on Ecotrin 81 mg daily, folic acid 1 mg daily, Linzess 145 mcg daily, Lipitor 20 mg daily, MiraLax 17 g twice a day, Pepcid 20 mg daily, Synthroid 75 mcg daily, Tessalon Perles 200 three times a day, Tylenol p.r.n., Xopenex nebulizer every 6 hours, Zetia 10 mg daily. The patient is on renal diet. The patient has been ordered out of bed. Physical therapy, ambulation therapy ordered. At present, the patient's condition, the patient will be continued to be evaluated in the hospital. The patient will be continued to be monitored very closely. The patient will be will be followed by the other subspecialties including Vascular Surgery, Interventional Radiology, Cardiology, Nephrology. The patient's further management will be dependent upon the patient's clinical condition, hemodynamic status, and as per the patient's response to therapeutic intervention, as per the patient's diagnostic test results, and as per recommendation by all the physicians involved in the care of the patient. Dictated and electronically signed, not read. Jose Dobbs MD MTDMadhu
--- NOTE | 2017-11-17 21:45 | CP.PCM.PN ---
Subjective - Date & Time of Evaluation Date of Evaluation: 11/17/17 Time of Evaluation: 22:00 - Subjective Subjective: 57 yo F w/ PMH of ESRD on HD (MWF), multiple episodes of thrombosed left radiocephalic AV fistula with prior stenting, nonischemic dilated cardiomyopathy , non-obstructive CAD, HTN, HLD, hypothyroidism, miliary TB, GERD and bronchial asthma, admitted with thrombosed L RC AVF; s/p extra HD yesterday due to electrolyte abnormalities, tolerated well; no dyspnea today; tolerating diet; ambulating; no bleeding from previous femoral cath dressing site; no bleeding from AVF; Objective - Vital Signs/Intake and Output Vital Signs (last 24 hours): Temp Pulse Resp BP Pulse Ox 98.7 F 76 16 117/67 96 11/17/17 18:00 11/17/17 18:00 11/17/17 18:00 11/17/17 18:00 11/17/17 18:00 Intake and Output: 11/17/17 11/18/17 18:59 06:59 Intake Total 895 Balance 895 - Medications Medications: Current Medications Acetaminophen (Tylenol 325mg Tab) 650 mg PO Q6H PRN PRN Reason: Pain, Mild (1-3) Aspirin (Ecotrin) 81 mg PO DAILY [facility] Last Admin: 11/17/17 09:55 Dose: 81 mg Atorvastatin Calcium (Lipitor) 20 mg PO DIN [facility] Last Admin: 11/17/17 17:41 Dose: 20 mg Benzonatate (Tessalon Perles) 200 mg PO TID [facility] Last Admin: 11/17/17 17:42 Dose: 200 mg Diphenhydramine HCl (Benadryl) 25 mg PO ONCE PRN PRN Reason: Insomnia Ezetimibe (Zetia) 10 mg PO DAILY [facility] Last Admin: 11/17/17 09:53 Dose: 10 mg Ergocalciferol (Drisdol 50,000 Intl Units Cap) 1 cap PO SAT [facility] Last Admin: 11/16/17 10:45 Dose: 1 cap Famotidine (Pepcid) 20 mg PO 1000 [facility] Last Admin: 11/17/17 09:53 Dose: 20 mg Folic Acid (Folic Acid) 1 mg PO DAILY [facility] Last Admin: 11/17/17 09:53 Dose: 1 mg Levalbuterol HCl (Xopenex) 0.63 mg IH [id number] [facility] Last Admin: 11/17/17 20:00 Dose: Not Given Levothyroxine Sodium (Synthroid) 75 mcg PO DAILY [facility] Last Admin: 11/17/17 09:53 Dose: 75 mcg Non-Formulary Medication (Linaclotide [Linzess]) 145 mcg PO DAILY [facility] Last Admin: 11/17/17 09:54 Dose: Not Given Polyethylene Glycol (Miralax) 17 gm PO BID [facility] Last Admin: 11/17/17 17:43 Dose: Not Given - Labs Labs: 11/17/17 06:30 11/17/17 06:30 PT 12.3 SECONDS (9.4-12.5) 11/17/17 06:30 INR 1.07 11/17/17 06:30 APTT 53.6 Seconds (25.1-36.5) H 11/17/17 06:30 - Constitutional Appears: Non-toxic, No Acute Distress - Eye Exam Eye Exam: Normal appearance - ENT Exam ENT Exam: Mucous Membranes Moist - Respiratory Exam Respiratory Exam: Clear to Ausculation Bilateral. absent: Respiratory Distress - Cardiovascular Exam Cardiovascular Exam: RRR, +S1, +S2 - GI/Abdominal Exam GI & Abdominal Exam: Soft. absent: Distended - Extremities Exam Additional comments: no leg edema; - Neurological Exam Neurological Exam: Alert, Awake - Psychiatric Exam Psychiatric exam: Normal Mood. absent: Agitated - Skin Skin Exam: Warm. absent: Cyanosis - Additional Findings Additional findings: L forearm AVF with good bruit; Assessment and Plan (1) ESRD (end stage renal disease) on dialysis Assessment & Plan: Hypokalemia and hypocalcemia improved after extra HD treatment yesterday; AVF working well; next HD for Saturday per routine; Status: Acute (2) Dialysis AV fistula malfunction Assessment & Plan: s/p declot 2 days ago; still with some non-occlusive thrombus on repeat duplex yesterday; heparin drip was restarted but subsequently stopped due to concern for HIT as platelet count significantly lower than usual; HIT Ab sent; also concern for significant drop in hgb after having persistent bleeding from femoral catheter site (subsequently removed yesterday); received 1 u prbc earlier today; no CHF signs/symptoms; -will monitor AVF function on HD tomorrow; -f/u HIT Ab, repeat cbc in am; -aranesp 60 mcg given today; holding off on IV iron as patient getting prbc; Status: Acute (3) Electrolyte imbalance Assessment & Plan: See above; will recommend to hold outpatient sensipar as patient seems to have had an exaggerated response to it with hypocalcemia; Ca much improved today, holding further Ca supplementation and will monitor; Status: Acute (4) QT prolongation Status: Acute (5) Hypertensive CKD, ESRD on dialysis Assessment & Plan: BP low/normal earlier; will restart B-ann marie once BP improves given severe systolic dysfunction; Status: Acute (6) Anemia Status: Acute (7) Thrombocytopenia Status: Acute
[2017-11-18] MEDS: Levalbuterol 0.63 MG/3 ML Inhal Soln UD IH SCH ×4 (01:58→19:50)
[2017-11-18 06:58] LABS: INR 0.93; PARTIAL THROMBOPLASTIN TIME 28.8 Seconds (25.1-36.5); PROTHROMBIN TIME 10.7 SECONDS (9.4-12.5)
[2017-11-18 07:02] LABS: HEMOGLOBIN 8.8 g/dL (12.0-16.0); MEAN CELL VOLUME 95.5 fl (80.0-105.0); MEAN CORPUSCULAR HEMOGLOBIN 30.8 pg (25.0-35.0); MEAN CORPUSCULAR HGB CONC 32.2 g/dl (31.0-37.0); MEAN PLATELET VOLUME 10.8 fl (7.0-11.0); RBC 2.86 10^6/uL (3.5-6.1); RED CELL DISTRIBUTION WIDTH 17.3 % (11.5-14.5); WHITE BLOOD COUNT 3.6 10^3/ul (4.5-11.0)
[2017-11-18 07:40] LABS: ALBUMIN 2.4 g/dL (3.0-4.8)
--- NOTE | 2017-11-18 09:39 | PN ---
Copied To: Jose Dobbs MD Attending MD: Jose Dobbs MD DATE: 11/18/2017 SUBJECTIVE: The patient is seen in room 261, bed 2. The patient is sitting up in the bed having breakfast. The patient denies any chest pain. Denies shortness of breath. Denies nausea, denies vomiting. Denies hemoptysis, hematemesis or melena. Denies any hematochezia. Denies any bleeding. PHYSICAL EXAMINATION: VITAL SIGNS: T-max 98.8. Telemetry shows sinus rhythm, heart rate 70, 75, 76; blood pressure is improved to 125/69, 139/77; respiration 18; O2 sat 98% on room air. HEENT: Head: Normocephalic, atraumatic. HEENT examination shows pinkish pale conjunctivae. Anicteric sclerae. No oropharyngeal lesion. No neck rigidity. CHEST: Kyphosis. LUNGS: Examination shows no rales, crackles or wheezing. CARDIOVASCULAR: S1, S2, regular rhythm. Positive systolic murmur at left sternal border, right second intercostal space, left second intercostal space. ABDOMEN: Soft. Positive bowel sound. GENITALIA: Female. RECTAL: Examination is deferred. EXTREMITIES: Lower extremities shows no pitting edema, no calf tenderness, no Homans' sign. Left upper extremity shows positive AV fistula, positive thrill, positive pulses. MUSCULOSKELETAL: Examination shows a body mass index of 23. NEUROLOGIC: The patient is alert, awake, and oriented x3. Cranial nerves II-XII limited. Gait examination is not tested. DIAGNOSTICS: 11/18, WBC 3.6, hemoglobin/hematocrit 8.8/27.3, platelet 83, manual platelet count pending. PT/PTT is 10.7/28.8. Sodium 139, potassium is 5, chloride 106, CO2 24, anion gap 14, BUN 26, creatinine 6.6, GFR 8, glucose 84, calcium 7, phosphorus 4.6, magnesium 2.9, total protein 4.7, albumin 2.4. HIV negative. The patient received 1 unit of PRBC. IMPRESSION AND PLAN: 1. Left upper extremity arteriovenous fistula malfunction secondary to left upper extremity arteriovenous fistula radiocephalic thrombosis. 2. Nonischemic dilated cardiomyopathy. 3. End-stage renal disease, hemodialysis dependent three times a week via the left upper extremity arteriovenous fistula. 4. Hypertensive cardiovascular disease. 5. Status post hypotension. 6. Pancytopenia, leukopenia, anemia, thrombocytopenia. 7. Granulocytosis. 8. Iatrogenic coagulopathy. 9. Non-hemolyzed hyperkalemia. 10. Hyperphosphatemia. 11. Protein malnutrition and hypoalbuminemia. 12. Status post packed red blood cell transfusion x1. 13. Thrombosed left upper extremity radiocephalic arteriovenous fistula. 14. 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 15. Status post left radiocephalic arteriovenous fistula thrombectomy, percutaneous transluminal angioplasty of the outflow vein stenosis and subclavian vein stenosis. 16. History of hypertension, hyperlipidemia, hypothyroidism, hypovitaminosis D. 1. Left upper extremity radiocephalic arteriovenous fistula partial thrombosis from the distal forearm to the elbow without stenosis of the arterial anastomosis. 2. Hypertension. 3. Right groin femoral dialysis catheter site bleeding, status post removal of the right groin dialysis catheter. 4. Leukopenia, anemia, thrombocytopenia, and pancytopenia. 5. Granulocytosis. 6. Iatrogenic coagulopathy secondary to heparin. 7. End-stage renal disease, hemodialysis dependent. 8. Non-hemolyzed hyperkalemia. 9. Hypocalcemia. 10. Hyperphosphatemia. 11. Secondary hyperparathyroidism secondary to end-stage renal disease, hemodialysis dependent. 12. Protein malnutrition and hypoalbuminemia. 13. Nonischemic dilated cardiomyopathy. 14. Acute blood loss anemia secondary to right groin dialysis catheter bleeding. 15. Absent flow in the left basilic vein and cephalic vein. 16. Arteriovenous fistula malfunction. 17. 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 18. Status post left upper extremity radiocephalic arteriovenous fistula thrombectomy, percutaneous transluminal angioplasty of the outflow vein stenosis and subclavian vein stenosis. 1. Thrombosed left radiocephalic arteriovenous fistula from the distal forearm to the elbow without stenosis of the arterial anastomosis. 2. Hypertensive cardiovascular disease. 3. Hypertension. 4. Normocytic anemia. 5. End-stage renal disease, hemodialysis dependent. 6. Non-hemolyzed hyperkalemia. 7. Hypocalcemia. 8. Granulocytosis. 9. Left upper extremity pain and swelling secondary to acute left upper extremity arteriovenous fistula thrombosis. 10. Nonischemic dilated cardiomyopathy. 11. Hypothyroidism. 12. Hyperlipidemia. 13. Status post ultrasound-guided dialysis catheter placement. 14. History of constipation. PLAN: At this time, the patient will be transfused with one more unit of PRBC today on dialysis. The patient has been ordered serial labs. CURRENT CONSULTATIONS: 1. Vascular Surgery. 2. Nephrology. 3. Interventional Radiology. 4. Cardiology. 5. Hematology/Oncology. Referral to TCU ordered. CURRENT MEDICATIONS: Drisdol 50,000 weekly, Ecotrin 81 mg daily, folic acid 1 mg daily, Linzess 145 mcg daily, Lipitor 20 mg daily, Lopressor 25 mg twice a day, MiraLax 17 g twice a day, Pepcid 20 mg daily, Synthroid 75 mcg daily, Tessalon Perles 200 three times a day, Tylenol 650 every 6 p.r.n., Xopenex nebulizer 0.63 mg every 6 hours, Zetia 10 mg daily. The patient is on renal diet. The patient has been ordered out of bed. Physical therapy, occupational therapy ordered. At present, the patient's further management will be dependent upon the patient's clinical condition, hemodynamic status and as per the patient's response to therapeutic intervention as per the patient's diagnostic test results and as per recommendation by all the physicians involved in the care of the patient. Dictated and electronically signed, not read. Jose Dobbs MD MTDD
[2017-11-18] MEDS: Non Formulary Medication (Linaclotide [Linzess] 145 MCG) PO SCH (09:50)
[2017-11-18] MEDS: POLYETHYLENE GLYCOL 3350 17 GM/Dose PACKET PO SCH ×2 (09:50→18:10)
[2017-11-18] MEDS: Levothyroxine 75 MCG TAB PO SCH (09:51)
--- NOTE | 2017-11-18 10:00 | CP.PCM.PN ---
Subjective - Date & Time of Evaluation Date of Evaluation: 11/18/17 Time of Evaluation: 09:54 - Subjective Subjective: Antonio Stockton D.O. PGY-3, Internal Medicine Resident, Nephrology Progress Note 57 year old female with a PMH of ESRD on HD M/W/F, CAD, HTN, HLD, hypothyroidism , nonischemic dilated cardiomyopathy, multiple episodes of thrombosed left radiocephalic AV fistula with prior stenting, GERD and bronchial asthma who was admitted with re-thrombosed L RC AVF. Patient was seen and examined at bedside during dialysis. Patient states overall feeling better. No CP, N/V/D, SPENCE or any other complaints. Objective - Vital Signs/Intake and Output Vital Signs (last 24 hours): Temp Pulse Resp BP Pulse Ox 98.3 F 70 18 125/69 98 11/18/17 06:00 11/18/17 06:00 11/18/17 06:00 11/18/17 06:00 11/18/17 06:00 Intake and Output: 11/18/17 11/18/17 06:59 18:59 Intake Total 880 Balance 880 - Medications Medications: Current Medications Acetaminophen (Tylenol 325mg Tab) 650 mg PO Q6H PRN PRN Reason: Pain, Mild (1-3) Aspirin (Ecotrin) 81 mg PO DAILY [facility] Last Admin: 11/18/17 09:50 Dose: Not Given Atorvastatin Calcium (Lipitor) 20 mg PO DIN [facility] Last Admin: 11/17/17 17:41 Dose: 20 mg Benzonatate (Tessalon Perles) 200 mg PO TID [facility] Last Admin: 11/18/17 09:51 Dose: Not Given Diphenhydramine HCl (Benadryl) 25 mg PO ONCE PRN PRN Reason: Insomnia Ezetimibe (Zetia) 10 mg PO DAILY [facility] Last Admin: 11/18/17 09:51 Dose: Not Given Ergocalciferol (Drisdol 50,000 Intl Units Cap) 1 cap PO SAT [facility] Last Admin: 11/16/17 10:45 Dose: 1 cap Famotidine (Pepcid) 20 mg PO 1000 [facility] Last Admin: 11/18/17 09:51 Dose: Not Given Folic Acid (Folic Acid) 1 mg PO DAILY [facility] Last Admin: 11/18/17 09:50 Dose: Not Given Levalbuterol HCl (Xopenex) 0.63 mg IH [id number] [facility] Last Admin: 11/18/17 07:37 Dose: 0.63 mg Levothyroxine Sodium (Synthroid) 75 mcg PO DAILY [facility] Last Admin: 11/18/17 09:51 Dose: Not Given Metoprolol Tartrate (Lopressor) 25 mg PO BID [facility] Last Admin: 11/18/17 09:50 Dose: Not Given Non-Formulary Medication (Linaclotide [Linzess]) 145 mcg PO DAILY [facility] Last Admin: 11/18/17 09:50 Dose: Not Given Polyethylene Glycol (Miralax) 17 gm PO BID [facility] Last Admin: 11/18/17 09:50 Dose: Not Given - Labs Labs: 11/18/17 06:20 11/18/17 06:20 PT 10.7 SECONDS (9.4-12.5) 11/18/17 06:20 INR 0.93 11/18/17 06:20 APTT 28.8 Seconds (25.1-36.5) 11/18/17 06:20 - Constitutional Appears: Non-toxic, No Acute Distress - Eye Exam Eye Exam: EOMI, PERRL. absent: Scleral icterus - ENT Exam ENT Exam: Mucous Membranes Moist, Normal Oropharynx - Neck Exam Neck Exam: Normal Inspection. absent: Tenderness - Respiratory Exam Respiratory Exam: Clear to Ausculation Bilateral. absent: Rales, Rhonchi, Wheezes - Cardiovascular Exam Cardiovascular Exam: +S1, +S2. absent: Gallop, Rubs, Murmur - GI/Abdominal Exam GI & Abdominal Exam: Soft, Normal Bowel Sounds. absent: Distended, Tenderness - Extremities Exam Extremities Exam: absent: Calf Tenderness, Pedal Edema - Neurological Exam Neurological Exam: Alert, Awake, CN II-XII Intact - Psychiatric Exam Psychiatric exam: Normal Affect, Normal Mood - Skin Skin Exam: Dry, Intact, Warm Assessment and Plan (1) Anemia Status: Acute (2) Dialysis AV fistula malfunction Status: Acute (3) Electrolyte imbalance Status: Acute (4) Hypertensive CKD, ESRD on dialysis Status: Acute (5) QT prolongation Status: Acute (6) Thrombocytopenia Status: Acute (7) ESRD (end stage renal disease) on dialysis Status: Acute - Assessment and Plan (Free Text) Assessment: 57 year old female with a PMH of ESRD on HD M/W/F, CAD, HTN, HLD, hypothyroidism , nonischemic dilated cardiomyopathy, multiple episodes of thrombosed left radiocephalic AV fistula with prior stenting, GERD and bronchial asthma who was admitted with re-thrombosed L RC AVF. Plan: S/P declot 3 days ago, was on heparin gtt but discontinued for possible HIT, ab still pending Holding heparin at this time HD today Hgb somewhat improved after 1u PRBC, Hgb stable, hemodynamically stable, no active bleeding Bruce Ca 8.28, improving BP well controlled off lopressor, continue to monitor Cont vitamin D supplementation Patient was seen and examined and case to be discussed with attending Dr. Green NOTE IN DRAFT FORM AND NOT FINALIZED
--- NOTE | 2017-11-18 17:21 | US ---
PROCEDURE: Duplex AV fistula angiogram HISTORY: End-stage renal disease. Malfunctioning AV fistula PHYSICIAN(S): Shun Abbott MD. TECHNIQUE: FINDINGS: The arterial anastomosis is patulous with turbulent flow but no obvious stenosis. There is an aneurysmal segment in the mid forearm with nonocclusive thrombus IMPRESSION: Aneurysmal segment mid AV fistula with nonocclusive thrombus.
--- NOTE | 2017-11-18 19:27 | CP.PCM.PN ---
Subjective - Date & Time of Evaluation Date of Evaluation: 11/18/17 Time of Evaluation: 12:00 - Subjective Subjective: 57 yo F w/ PMH of ESRD on HD (MWF), multiple episodes of thrombosed left radiocephalic AV fistula with prior stenting, nonischemic dilated cardiomyopathy , non-obstructive CAD, HTN, HLD, hypothyroidism, miliary TB, GERD and bronchial asthma, admitted with thrombosed L RC AVF; Reports feeling well; no sob; tolerating diet although not eating much; tolerating UF on HD; Objective - Vital Signs/Intake and Output Vital Signs (last 24 hours): Temp Pulse Resp BP Pulse Ox 98.4 F 93 H 20 101/61 97 11/18/17 18:00 11/18/17 18:10 11/18/17 18:00 11/18/17 18:10 11/18/17 18:00 Intake and Output: 11/18/17 11/19/17 18:59 06:59 Intake Total 500 Balance 500 - Medications Medications: Current Medications Acetaminophen (Tylenol 325mg Tab) 650 mg PO Q6H PRN PRN Reason: Pain, Mild (1-3) Aspirin (Ecotrin) 81 mg PO DAILY [facility] Last Admin: 11/18/17 09:50 Dose: Not Given Atorvastatin Calcium (Lipitor) 20 mg PO DIN [facility] Last Admin: 11/18/17 18:10 Dose: 20 mg Benzonatate (Tessalon Perles) 200 mg PO TID [facility] Last Admin: 11/18/17 18:10 Dose: 200 mg Diphenhydramine HCl (Benadryl) 25 mg PO ONCE PRN PRN Reason: Insomnia Ezetimibe (Zetia) 10 mg PO DAILY [facility] Last Admin: 11/18/17 13:55 Dose: 10 mg Ergocalciferol (Drisdol 50,000 Intl Units Cap) 1 cap PO SAT [facility] Last Admin: 11/16/17 10:45 Dose: 1 cap Famotidine (Pepcid) 20 mg PO 1000 [facility] Last Admin: 11/18/17 13:55 Dose: 20 mg Folic Acid (Folic Acid) 1 mg PO DAILY [facility] Last Admin: 11/18/17 13:55 Dose: 1 mg Levalbuterol HCl (Xopenex) 0.63 mg IH [id number] [facility] Last Admin: 11/18/17 13:21 Dose: 0.63 mg Levothyroxine Sodium (Synthroid) 75 mcg PO DAILY [facility] Last Admin: 11/18/17 09:51 Dose: Not Given Metoprolol Tartrate (Lopressor) 25 mg PO BID [facility] Last Admin: 11/18/17 18:10 Dose: 25 mg Non-Formulary Medication (Linaclotide [Linzess]) 145 mcg PO DAILY [facility] Last Admin: 11/18/17 09:50 Dose: Not Given Polyethylene Glycol (Miralax) 17 gm PO BID [facility] Last Admin: 11/18/17 18:10 Dose: 17 gm - Labs Labs: 11/18/17 06:20 11/18/17 06:20 PT 10.7 SECONDS (9.4-12.5) 11/18/17 06:20 INR 0.93 11/18/17 06:20 APTT 28.8 Seconds (25.1-36.5) 11/18/17 06:20 - Constitutional Appears: Non-toxic, No Acute Distress - Eye Exam Eye Exam: Normal appearance - Respiratory Exam Respiratory Exam: Clear to Ausculation Bilateral. absent: Respiratory Distress - Cardiovascular Exam Cardiovascular Exam: RRR, +S1, +S2. absent: Gallop, Rubs - GI/Abdominal Exam GI & Abdominal Exam: Soft. absent: Distended, Tenderness - Extremities Exam Additional comments: no leg edema; - Neurological Exam Neurological Exam: Alert, Awake - Psychiatric Exam Psychiatric exam: Normal Affect, Normal Mood. absent: Agitated - Skin Skin Exam: Warm. absent: Cyanosis Assessment and Plan (1) ESRD (end stage renal disease) on dialysis Assessment & Plan: Stable volume and electrolyte status; dialyzing today per routine with UF goal 2L net; Status: Acute (2) Dialysis AV fistula malfunction Assessment & Plan: Normal access pressures on HD today using full blood flow; still concern for some remnant non-occlusive thrombus involving AVF; off heparin drip due to thrombocytopenia; continue to monitor clinically; Status: Acute (3) Electrolyte imbalance Assessment & Plan: Hypocalcemia improved, appears to have been exaggerated response to sensipar, currently being held; Status: Acute (4) QT prolongation Status: Acute (5) Hypertensive CKD, ESRD on dialysis Assessment & Plan: BP controlled; continue metoprolol 25 mg bid; holding hydralazine for now; Status: Acute (6) Anemia Assessment & Plan: Secondary to femoral catheter site bleeding (resolved); s/p 1 u prbc yesterday with hgb not rising as much as expected; s/p aranesp 60 mcg yesterday; monitor; Status: Acute (7) Thrombocytopenia Assessment & Plan: Still with significantly worsened thrombocytopenia from baseline; f/u HIT Ab; awaiting heme consult; Status: Acute - Assessment and Plan (Free Text) Assessment: Thank you for being able to participate in the care of Ms. Casanova; Dr. Tidwell/ [facility] will resume care tomorrow.
--- NOTE | 2017-11-18 22:20 | US ---
HISTORY: Leg pain and swelling. Evaluate for DVT PHYSICIAN(S): Shun Abbott MD. TECHNIQUE: Duplex sonography and color-flow Doppler with graded compression were used to evaluate the deep venous systems of both lower extremities. FINDINGS: The visualized deep venous systems of both lower extremities are sonographically normal and compressible. Normal wave forms and augmentation are seen. There is no sonographic evidence for deep venous thrombosis in the visualized segments of both lower extremities. IMPRESSION: No sonographic evidence for deep venous thrombosis in the visualized segments of both lower extremities.
[2017-11-19] MEDS: Levalbuterol 0.63 MG/3 ML Inhal Soln UD IH SCH ×4 (02:18→19:57)
[2017-11-19 06:58] LABS: HEMOGLOBIN 10.4 g/dL (12.0-16.0); MEAN CELL VOLUME 93.9 fl (80.0-105.0); MEAN CORPUSCULAR HEMOGLOBIN 30.2 pg (25.0-35.0); MEAN CORPUSCULAR HGB CONC 32.2 g/dl (31.0-37.0); MEAN PLATELET VOLUME 11.5 fl (7.0-11.0); RBC 3.44 10^6/uL (3.5-6.1); RED CELL DISTRIBUTION WIDTH 17.5 % (11.5-14.5); WHITE BLOOD COUNT 3.1 10^3/ul (4.5-11.0)
[2017-11-19 07:52] LABS: CALCIUM 6.8 mg/dL (8.4-10.5)
[2017-11-19 07:53] LABS: ALB/GLOB RATIO 1.2 (1.1-1.8); ALBUMIN 2.4 g/dL (3.0-4.8)
[2017-11-19 08:39] VITALS: O2SAT 97
[2017-11-19] MEDS ORDERED: Sod Polystyrene Sulf 15 gm/60 ml Susp PO ONE (09:09)
[2017-11-19] MEDS: Non Formulary Medication (Linaclotide [Linzess] 145 MCG) PO SCH (09:21)
[2017-11-19] MEDS: Levothyroxine 75 MCG TAB PO SCH (09:22)
[2017-11-19] MEDS: POLYETHYLENE GLYCOL 3350 17 GM/Dose PACKET PO SCH ×2 (09:22→17:02)
--- NOTE | 2017-11-19 10:00 | CP.PCM.PN ---
<Rakesh De Jesus - Last Filed: 11/19/17 09:57> Subjective - Date & Time of Evaluation Date of Evaluation: 11/19/17 Time of Evaluation: 09:57 - Subjective Subjective: Rakesh De Jesus PGY2 IM Progress Note for Dr. Dobbs Patient was seen and examined at bedside. She states that her bleeding from the temporary dialysis catheter site has improved and is no longer bleeding; the dressing was changed. She tolerated dialysis well yesterday and overall she feels good. There is no swelling or pain at the fistula site. She denies chest pain, shortness of breath, weakness or numbness/tingling. Upon re-evaluation when patient was with PT, the patient described dizziness and needed to be seated. She was evaluated and STAT MRI Brain and STAT Carotid US were ordered. Objective - Vital Signs/Intake and Output Vital Signs (last 24 hours): Temp Pulse Resp BP Pulse Ox 98.5 F 77 20 137/91 H 97 11/19/17 05:51 11/19/17 09:21 11/19/17 08:00 11/19/17 09:21 11/19/17 08:00 Intake and Output: 11/19/17 11/19/17 06:59 18:59 Intake Total 240 Balance 240 - Medications Medications: Current Medications Acetaminophen (Tylenol 325mg Tab) 650 mg PO Q6H PRN PRN Reason: Pain, Mild (1-3) Aspirin (Ecotrin) 81 mg PO DAILY [facility] Last Admin: 11/19/17 09:20 Dose: 81 mg Atorvastatin Calcium (Lipitor) 20 mg PO DIN [facility] Last Admin: 11/18/17 18:10 Dose: 20 mg Benzonatate (Tessalon Perles) 200 mg PO TID [facility] Last Admin: 11/19/17 09:22 Dose: 200 mg Diphenhydramine HCl (Benadryl) 25 mg PO ONCE PRN PRN Reason: Insomnia Ezetimibe (Zetia) 10 mg PO DAILY [facility] Last Admin: 11/19/17 09:22 Dose: 10 mg Ergocalciferol (Drisdol 50,000 Intl Units Cap) 1 cap PO SAT [facility] Last Admin: 11/16/17 10:45 Dose: 1 cap Famotidine (Pepcid) 20 mg PO 1000 [facility] Last Admin: 11/19/17 09:22 Dose: 20 mg Folic Acid (Folic Acid) 1 mg PO DAILY [facility] Last Admin: 11/19/17 09:21 Dose: 1 mg Levalbuterol HCl (Xopenex) 0.63 mg IH [id number] [facility] Last Admin: 11/19/17 07:13 Dose: 0.63 mg Levothyroxine Sodium (Synthroid) 75 mcg PO DAILY [facility] Last Admin: 11/19/17 09:22 Dose: 75 mcg Metoprolol Tartrate (Lopressor) 25 mg PO BID [facility] Last Admin: 11/19/17 09:21 Dose: 25 mg Non-Formulary Medication (Linaclotide [Linzess]) 145 mcg PO DAILY [facility] Last Admin: 11/19/17 09:21 Dose: Not Given Polyethylene Glycol (Miralax) 17 gm PO BID [facility] Last Admin: 11/19/17 09:22 Dose: 17 gm - Labs Labs: 11/19/17 05:30 11/19/17 05:30 PT 10.7 SECONDS (9.4-12.5) 11/18/17 06:20 INR 0.93 11/18/17 06:20 APTT 28.8 Seconds (25.1-36.5) 11/18/17 06:20 - Constitutional Appears: Well, Non-toxic, No Acute Distress - Head Exam Head Exam: NORMAL INSPECTION - Eye Exam Eye Exam: EOMI, Normal appearance, PERRL - ENT Exam ENT Exam: Mucous Membranes Moist - Respiratory Exam Respiratory Exam: NORMAL BREATHING PATTERN. absent: Rales, Rhonchi, Wheezes - Cardiovascular Exam Cardiovascular Exam: RRR, +S1, +S2 - GI/Abdominal Exam GI & Abdominal Exam: Soft. absent: Distended, Tenderness - Extremities Exam Additional comments: left forearm fistula no active bleeding from right groin; catheter removed - Back Exam Back Exam: NORMAL INSPECTION - Neurological Exam Neurological Exam: Alert, Awake, CN II-XII Intact, Oriented x3 - Psychiatric Exam Psychiatric exam: Normal Mood - Skin Skin Exam: Normal Color Assessment and Plan - Assessment and Plan (Free Text) Assessment: 57-year-old female with a PMH of ESRD on HD (MWF), multiple episodes of thrombosed left radiocephalic AV fistula with prior stenting by Dr. Shun Abbott , nonischemic dilated cardiomyopathy with latest EF of < 30%, HTN, HLD, hypothyroidism, miliary TB, GERD and bronchial asthma who presented to the ED with symptoms of AV fistula swelling and pain, found to have a thrombosed left radiocephalic AV fistula from the distal forearm to elbow on duplex. IR performed thrombectomy on 11/15, but follow-up imaging on 11/16 showed persistent non-occlusive thrombus. Patient was on heparin drip but due to platelets dropping and suspected HIT, the patient was taken off the heparin. Required an extra HD session due to electrolyte abnormalities on 11/16. Plan: 1. Thrombosed left radiocephalic AV fistula - s/p thrombectomy - due to suspected HIT, currently off heparin gtt - f/u IR recommendations regarding further intervention - PT eval pending 2. Dizzinesss - STAT MRI brain - STAT carotid US - Echo reviewed 3. ESRD on HD - Dialysis MWF - Nephrology consulted, recs appreciated - temporary catheter was removed, continue using AVF - Monitor for any electrolyte abnormalities and supplement accordingly 4. History of systolic dysfunction CHF - Cardiology consulted, recommendations appreciated - Continue ASA, lisinopril and Lopressor 5. History of HTN - Continue hydralazine and lisinopril 6. History of HLD - Continue Lipitor and Zetia 7. History of hypothyroidism - Continue Synthroid 8. History of asthma - Continue Xopenex 9. Prophylaxis - Start Pepcid daily - SCDs/heparin gtt Case was reviewed and discussed with attending, Dr. Dilia De Jesus PGY2 <Jose Dobbs U - Last Filed: 11/20/17 16:47> Objective - Vital Signs/Intake and Output Vital Signs (last 24 hours): Temp Pulse Resp BP Pulse Ox 98.5 F 72 16 130/71 97 11/20/17 05:27 11/20/17 13:26 11/20/17 05:27 11/20/17 13:26 11/20/17 05:27 Intake and Output: 11/20/17 11/20/17 06:59 18:59 Intake Total 540 Balance 540 - Labs Labs: 11/20/17 06:00 11/20/17 06:00 PT 10.7 SECONDS (9.4-12.5) 11/18/17 06:20 INR 0.93 11/18/17 06:20 APTT 28.8 Seconds (25.1-36.5) 11/18/17 06:20 Attending/Attestation - Attestation I have personally seen and examined this patient.: Yes I have fully participated in the care of the patient.: Yes I have reviewed all pertinent clinical information, including history, physical exam and plan: Yes Notes (Text): Please see/read my dictated notes.
--- NOTE | 2017-11-19 12:20 | MRI ---
Date of service: 11/19/2017 PROCEDURE: MRI BRAIN WITHOUT CONTRAST HISTORY: acute dizziness, include eustachian tube IAC COMPARISON: None available. TECHNIQUE: Multiplanar, multisequence MR images of the brain were obtained without intravenous contrast enhancement. FINDINGS: HEMORRHAGE: None DWI: No evidence of an acute or early subacute infarction. BRAIN PARENCHYMA: No mass effect or edema. There is a small area of well defined encephalomalacia along the inferior aspect of the left temporal lobe. There is minimal subcortical encephalomalacia in the left frontal lobe. Mild microvascular changes are seen. VENTRICLES: Unremarkable. No hydrocephalus. CRANIUM: Unremarkable. ORBITS: Grossly unremarkable. PARANASAL SINUSES/MASTOIDS: There is no evidence of mastoiditis or otitis. The station tubes are unremarkable. The nasopharynx is unremarkable. VASCULAR SYSTEM: Skull base flow voids intact. OTHER FINDINGS: None. IMPRESSION: No acute findings. No evidence of otitis media or mastoiditis
--- NOTE | 2017-11-19 14:31 | PN ---
Copied To: Jose Dobbs MD Attending MD: Jose Dobbs MD DATE: 11/19/2017 SUBJECTIVE: The patient was seen in room 261, bed 2, but the patient is also seen ambulating with the physical therapy. The patient is complaining of [id number] dizziness. The patient was made to stand up from the standing position and the patient had some questionable positive Romberg sign with swaying of the body. PHYSICAL EXAMINATION: VITAL SIGNS: T-max 98.5, heart rate 77. Telemetry shows sinus rhythm, no arrhythmias documented. Blood pressure 137/91, 129/85; respirations 20; O2 sat 97% to 100%. HEENT: Head: Normocephalic, atraumatic. Pinkish conjunctivae. Anicteric sclerae. No oropharyngeal lesion. NECK: No neck rigidity. Questionable soft carotid bruit. CHEST: Kyphosis. LUNGS: Show no rales, crackles, or wheezing. Occasional rhonchi. CARDIOVASCULAR: S1 and S2, regular rhythm. Positive systolic murmur in the left sternal border, right second intercostal space. ABDOMEN: Soft. Positive bowel sound. GENITALIA: Female. RECTAL: Deferred. Right groin site is intact. EXTREMITIES: Left upper extremity positive fistula, positive thrill noted. Positive pulse noted of the left upper extremity. Lower extremity shows no pitting edema, no calf tenderness, no Homans sign. NEUROLOGIC: The patient is alert, awake, and oriented x3. Cranial nerves II through XII grossly intact. Gait examination is assisted with physical therapy. DIAGNOSTICS: 11/19/2017: WBC 3.1, hemoglobin and hematocrit 10.4 and 32.3, platelets 109,000. Sodium 138, potassium 5.3, chloride 105, CO2 of 28, anion gap 11. BUN 13, creatinine 4. GFR 14. Glucose 76. Calcium 6.8, phosphorus 3.4, magnesium 2.7. AST is 37. Total protein 4.5, albumin 2.4. HIV is negative. IMPRESSION: 1. Severe symptomatic dizziness with questionable positive Romberg sign. 2. Left upper extremity arteriovenous fistula malfunction secondary to left upper extremity arteriovenous fistula radiocephalic thrombosis. 3. Nonischemic dilated cardiomyopathy. 4. End-stage renal disease, hemodialysis dependent three times a week via the left upper extremity arteriovenous fistula. 5. Hypertensive cardiovascular disease. 6. Pancytopenia, leukopenia, anemia, and thrombocytopenia. 7. Granulocytosis 8. Iatrogenic coagulopathy (resolved). 9. Non-hemolyzed hyperkalemia. 10. Protein malnutrition. 11. Hypoalbuminemia. 12. Hyperphosphatemia. 13. Left radiocephalic arteriovenous fistula thrombosis status post stenting. 14. History of abdominal tuberculosis. 15. Hypocalcemia. 16. Hypertension. 1. Left upper extremity arteriovenous fistula malfunction secondary to left upper extremity arteriovenous fistula radiocephalic thrombosis. 2. Nonischemic dilated cardiomyopathy. 3. End-stage renal disease, hemodialysis dependent three times a week via the left upper extremity arteriovenous fistula. 4. Hypertensive cardiovascular disease. 5. Status post hypotension. 6. Pancytopenia, leukopenia, anemia, thrombocytopenia. 7. Granulocytosis. 8. Iatrogenic coagulopathy. 9. Non-hemolyzed hyperkalemia. 10. Hyperphosphatemia. 11. Protein malnutrition and hypoalbuminemia. 12. Status post packed red blood cell transfusion x1. 13. Thrombosed left upper extremity radiocephalic arteriovenous fistula. 14. 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 15. Status post left radiocephalic arteriovenous fistula thrombectomy, percutaneous transluminal angioplasty of the outflow vein stenosis and subclavian vein stenosis. 16. History of hypertension, hyperlipidemia, hypothyroidism, hypovitaminosis D. 1. Left upper extremity radiocephalic arteriovenous fistula partial thrombosis from the distal forearm to the elbow without stenosis of the arterial anastomosis. 2. Hypertension. 3. Right groin femoral dialysis catheter site bleeding, status post removal of the right groin dialysis catheter. 4. Leukopenia, anemia, thrombocytopenia, and pancytopenia. 5. Granulocytosis. 6. Iatrogenic coagulopathy secondary to heparin. 7. End-stage renal disease, hemodialysis dependent. 8. Non-hemolyzed hyperkalemia. 9. Hypocalcemia. 10. Hyperphosphatemia. 11. Secondary hyperparathyroidism secondary to end-stage renal disease, hemodialysis dependent. 12. Protein malnutrition and hypoalbuminemia. 13. Nonischemic dilated cardiomyopathy. 14. Acute blood loss anemia secondary to right groin dialysis catheter bleeding. 15. Absent flow in the left basilic vein and cephalic vein. 16. Arteriovenous fistula malfunction. 17. 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 18. Status post left upper extremity radiocephalic arteriovenous fistula thrombectomy, percutaneous transluminal angioplasty of the outflow vein stenosis and subclavian vein stenosis. 1. Thrombosed left radiocephalic arteriovenous fistula from the distal forearm to the elbow without stenosis of the arterial anastomosis. 2. Hypertensive cardiovascular disease. 3. Hypertension. 4. Normocytic anemia. 5. End-stage renal disease, hemodialysis dependent. 6. Non-hemolyzed hyperkalemia. 7. Hypocalcemia. 8. Granulocytosis. 9. Left upper extremity pain and swelling secondary to acute left upper extremity arteriovenous fistula thrombosis. 10. Nonischemic dilated cardiomyopathy. 11. Hypothyroidism. 12. Hyperlipidemia. 13. Status post ultrasound-guided dialysis catheter placement. 14. History of constipation. PLAN: At this time, the patient has been ordered repeat labs. MRI of the brain has been ordered with internal auditory canals. Echo was reviewed. The patient's current medications: The patient will be continued on Drisdol 50,000 weekly, Ecotrin 81 mg daily, folic acid 1 mg daily. The patient was given a dose of Kayexalate 30 g. The patient is on Linzess or MiraLax daily or b.i.d. either one of them, Lipitor 20 mg daily, Lopressor 25 twice a day started by Nephrology, Pepcid 20 mg daily, Synthroid 75 mcg daily, Tessalon Perles 200 three times a day, Tylenol 650 every 6 hours p.r.n., Xopenex nebulizer 0.63 mg every 6 hours, Zetia 10 mg daily. Carotid ultrasound, MRI of the brain without gadolinium ordered. Renal dialysis diet ordered. Out of bed, physical therapy, ambulation therapy, gait training ordered. The patient's case referred to transitional care unit. Repeat labs ordered. Current consultations: Vascular Surgery, Nephrology, Interventional Radiology, Hematology/Oncology. We are still awaiting Hematology/Oncology evaluation and recommendation. The patient's further management will be dependent upon the patient's clinical condition, hemodynamic status, and as per the patient's response to therapeutic intervention, as per the patient's diagnostic test results, and as per recommendation by all the physicians involved in the care of the patient. Dictated and electronically signed, not read. Jose Dobbs MD [facility] # [id number] MTDD
--- NOTE | 2017-11-19 14:57 | US ---
PROCEDURE: Bilateral carotid artery duplex ultrasound HISTORY: Carotid stenosis dizziness PHYSICIAN(S): Shun Abbott MD. TECHNIQUE: Duplex sonography and color-flow Doppler were used to evaluate the carotid bifurcations and limited segments of the vertebral arteries bilaterally. FINDINGS: There is minimal intimal- medial thickening plaque at the carotid bifurcations bilaterally. The peak systolic velocity in the proximal right internal carotid artery is 53 cm/sec. This corresponds to a 0-19 percent proximal right ICA stenosis. Normal systolic velocities are noted in the proximal right external carotid artery. There is antegrade flow in the right vertebral artery. The peak systolic velocity in the proximal left internal carotid artery is 57 cm/sec. This corresponds to a 0-19 percent proximal left ICA stenosis. Normal systolic velocities are noted in the proximal left external carotid artery. There is antegrade flow in the left vertebral artery. IMPRESSION: 1. Bilateral 0-19 percent proximal ICA stenoses. 2. Antegrade flow in both vertebral arteries.
--- NOTE | 2017-11-19 15:52 | PN ---
Copied To: Shun Rosa MD Attending MD: Shun Rosa MD DATE: 11/19/2017 CARDIOLOGY FOLLOWUP SUBJECTIVE: The patient is chest pain free. She denies shortness of breath. PHYSICAL EXAMINATION: VITAL SIGNS: Blood pressure is 139/93, the heart rate is in the 70s. NECK: Negative JVD. LUNGS: Without rales. HEART: Reveals S1, S2. EXTREMITIES: Without edema. LABORATORY DATA: Hemoglobin is 10.4. Chemistries: BUN and creatinine are 13 and 4, potassium is 5.3. IMPRESSION: 1. End-stage renal disease. 2. Dilated cardiomyopathy. 3. Recurrent access thrombosis. 4. Hypertension. PLAN: Given these findings, the patient is hemodynamically stable. There is no evidence of CHF. Shun Rosa MD
--- NOTE | 2017-11-19 17:52 | PN ---
Copied To: Rosas Ayers MD Attending MD: Rosas Ayers MD DATE: 11/19/2017 SUBJECTIVE: The patient is currently seen lying comfortable in bed at 2R in telemetry. She states she had an uneventful dialysis yesterday cannulating her previously thrombosed left upper extremity AV fistula. MEDICATIONS: Medication list reviewed. The patient is currently on vitamin D, Ecotrin, folic acid, Linzess, Lipitor, Lopressor, MiraLax, Pepcid, Synthroid, Tessalon Perles, Tylenol, Xopenex and Zetia. OBJECTIVE: INTAKE/OUTPUT: Intake 740, output not charted. VITAL SIGNS: Blood pressure 122/67, temperature 98.2, respiratory rate 18 with a heart rate of 75. HEENT: Exam shows her to be normocephalic, atraumatic. Conjunctivae are pale. Sclerae are nonicteric. NECK: Supple. No neck vein distention. CHEST: Clear to auscultation and percussion. No rales, rhonchi or wheezing. CARDIOVASCULAR: Shows a regular rate and rhythm without audible murmurs, rubs or gallops. ABDOMEN: Soft. Bowel sounds normal. No rebound, guarding or masses. EXTREMITIES: Show pseudoaneurysm, left upper extremity AV fistula. Positive thrill. Positive bruit. No lower extremity cyanosis, clubbing or edema. LABORATORY DATA AND IMAGING: CBC from today white blood cell count 3.1, hemoglobin 10.4 with a platelet count of 98,000. Chemistries show a potassium of 5.3 today. Otherwise, electrolytes are normal. BUN 13 with a creatinine of 4. This is the post dialysis day. Glucose is 76. Calcium is low at 6.8, corrected calcium remains low at 8. Phosphorus is 3.4 with a magnesium level of 2.7. Albumin level is 2.4. Microbiology: No cultures available for comment. ASSESSMENT: 1. End-stage renal disease. The patient will continue Saturday, Saturday and Saturday dialysis. She is scheduled for dialysis tomorrow. 2. Status post thrombosed left upper extremity arteriovenous fistula. The patient had been on heparin and her platelet count is now low. She is awaiting Hematology evaluation and platelet count had dropped from 152,000 down to 77,000. Off heparin, it is up to 98,000. Human immunodeficiency virus antibody titer is pending. 3. History of nonocclusive coronary artery disease with cardiomyopathy. Stable. The patient was seen by Cardiology. 4. History of hypertension. Blood pressure is controlled on present medical therapy. The patient may continue low-dose beta-ann marie therapy. 5. History of hypothyroidism. Continue with thyroid replacement therapy. 6. Past history of tuberculosis. 7. Anemia. The patient will continue receiving ARACELI agents per protocol on dialysis. 8. Borderline to mild hypocalcemia. The patient had been on a noncalcium-containing binder therapy in the outpatient setting. Perhaps consider switch over to PhosLo in order to help bring her calcium level up into a normal range. PLAN: 1. Hemodialysis tomorrow via her left upper extremity AV fistula. Her right femoral catheter was removed. This was used for temporary dialysis. 2. Recheck laboratory work with dialysis tomorrow. 3. P.r.n. consider switch over to PhosLo, which is a calcium containing binder, which might help bring her calcium level up into a normal range together with vitamin D supplements. 4. Await Hematology evaluation, await HIT antibody results. The patient's platelet count appears to be improving off heparin therapy. Rosas Ayers MD
--- NOTE | 2017-11-19 19:24 | CP.PCM.CON ---
History of Present Illness - History of Present Illness History of Present Illness: 57 year old female with a history of nonischemic cardiopmyopathy, HTN, HL, hypothyroid, GERD, asthma, miliary TB, recurrent AV fistula thromosis, presenting with left forearm pain/swelling, found to have a thrombosed AV fistula s/p thrombectomy, with residual clot burden, started on a heparin drip, complicated by thrombocytopenia, now off heparin, with concern for heparin induced thrombocytopenia. The patient notes to left forearm swelling after her HD session. She denies shortness of breath and chest pain. She did have bleeding related to femoral dialysis access for which she received a PRBC transfusion. She currently denies abnormal bleeding and bruising. Past medical history: nonischemic cardiopmyopathy, HTN, HL, hypothyroid, GERD, asthma, miliary TB, recurrent AV fistula thromosis. Past surgical history: AV fistula Family history: Denies hematologic and oncologic problems Social history: Denies tobacco, alcohol, and illicit drug use. Allergies: NKA Review of systems: All remaining review of systems including HEENT, cardiovascular, respiratory, gastrointestinal, genitourinary, musculoskeletal, dermatologic, neurologic, and psychiatric are negative unless mentioned in the HPI. Past Patient History - Infectious Disease Hx of Infectious Diseases: None - Tetanus Immunizations Tetanus Immunization: Unknown - Past Medical History & Family History Past Medical History?: Yes Past Family History: Reviewed and not pertinent - Past Social History Smoking Status: Never Smoked Alcohol: None Drugs: Denies Home Situation {Lives}: With Family - CARDIAC Hx Cardiac Disorders: Yes Hx Congestive Heart Failure: Yes Hx Hypercholesterolemia: Yes Hx Hypertension: Yes - PULMONARY Hx Respiratory Disorders: Yes Hx Asthma: Yes Hx Tuberculosis: Yes - NEUROLOGICAL Hx Neurological Disorder: No Hx Alzheimer's Disease: No - HEENT Hx HEENT Problems: No - RENAL Hx Chronic Kidney Disease: Yes Hx Dialysis: Yes Type of Dialysis Access: AVF for HD Date of Last Dialysis Treatment: 11/13/17 - ENDOCRINE/METABOLIC Hx Hypothyroidism: Yes - HEMATOLOGICAL/ONCOLOGICAL Hx Blood Disorders: No - INTEGUMENTARY Hx Dermatological Problems: No - MUSCULOSKELETAL/RHEUMATOLOGICAL Hx Musculoskeletal Disorders: No - GASTROINTESTINAL Hx Gastrointestinal Disorders: No - GENITOURINARY/GYNECOLOGICAL Hx Genitourinary Disorders: No - PSYCHIATRIC Hx Psychophysiologic Disorder: No Hx Emotional Abuse: No Hx Physical Abuse: No Hx Substance Use: No - SURGICAL HISTORY Other/Comment: abd sx 2006 - ANESTHESIA Hx Anesthesia: Yes Hx Anesthesia Reactions: No Hx Malignant Hyperthermia: No Meds Allergies/Adverse Reactions: Allergies Allergy/AdvReac Type Severity Reaction Status Date / Time No Known Allergies Allergy Verified 09/22/17 20:30 - Medications Medications: Current Medications Acetaminophen (Tylenol 325mg Tab) 650 mg PO Q6H PRN PRN Reason: Pain, Mild (1-3) Aspirin (Ecotrin) 81 mg PO DAILY [facility] Last Admin: 11/19/17 09:20 Dose: 81 mg Atorvastatin Calcium (Lipitor) 20 mg PO DIN [facility] Last Admin: 11/19/17 17:01 Dose: 20 mg Benzonatate (Tessalon Perles) 200 mg PO TID [facility] Last Admin: 11/19/17 17:02 Dose: 200 mg Ezetimibe (Zetia) 10 mg PO DAILY [facility] Last Admin: 11/19/17 09:22 Dose: 10 mg Ergocalciferol (Drisdol 50,000 Intl Units Cap) 1 cap PO SAT [facility] Last Admin: 11/16/17 10:45 Dose: 1 cap Famotidine (Pepcid) 20 mg PO 1000 [facility] Last Admin: 11/19/17 09:22 Dose: 20 mg Folic Acid (Folic Acid) 1 mg PO DAILY [facility] Last Admin: 11/19/17 09:21 Dose: 1 mg Levalbuterol HCl (Xopenex) 0.63 mg IH [id number] [facility] Last Admin: 11/19/17 13:30 Dose: 0.63 mg Levothyroxine Sodium (Synthroid) 75 mcg PO DAILY [facility] Last Admin: 11/19/17 09:22 Dose: 75 mcg Metoprolol Tartrate (Lopressor) 25 mg PO BID [facility] Last Admin: 11/19/17 17:01 Dose: 25 mg Non-Formulary Medication (Linaclotide [Linzess]) 145 mcg PO DAILY [facility] Last Admin: 11/19/17 09:21 Dose: Not Given Polyethylene Glycol (Miralax) 17 gm PO BID [facility] Last Admin: 11/19/17 17:02 Dose: Not Given Physical Exam - Head Exam Head Exam: ATRAUMATIC - Eye Exam Eye Exam: Normal appearance - ENT Exam ENT Exam: Mucous Membranes Dry - Respiratory Exam Respiratory Exam: NORMAL BREATHING PATTERN - Cardiovascular Exam Cardiovascular Exam: +S1, +S2 - GI/Abdominal Exam GI & Abdominal Exam: Normal Bowel Sounds - Neurological Exam Neurological exam: Oriented x3 - Psychiatric Exam Psychiatric exam: Normal Affect, Normal Mood - Skin Skin Exam: Warm Results - Vital Signs Recent Vital Signs: Last Vital Signs Temp 98.1 F 11/19/17 18:00 Pulse 75 11/19/17 18:00 Resp 18 11/19/17 18:00 BP 122/67 11/19/17 18:00 Pulse Ox 97 11/19/17 08:00 - Labs Result Diagrams: 11/19/17 05:30 11/19/17 05:30 Labs: Laboratory Results - last 24 hr 11/17/17 11/19/17 11/19/17 06:30 05:30 05:30 WBC 3.1 L RBC 3.44 L Hgb 10.4 L Hct 32.3 L MCV 93.9 MCH 30.2 MCHC 32.2 RDW 17.5 H Plt Count 98 L Manual Plt Count 109 L MPV 11.5 H Sodium 138 Potassium 5.3 H Chloride 105 Carbon Dioxide 28 Anion Gap 11 BUN 13 Creatinine 4.0 H Est GFR ( Amer) 14 Est GFR (Non-Af Amer) 11 Random Glucose 76 Calcium 6.8 L* Phosphorus 3.4 Magnesium 2.7 H Total Bilirubin 0.6 AST 37 H D ALT 30 Alkaline Phosphatase 65 Total Protein 4.5 L Albumin 2.4 L Globulin 2.1 Albumin/Globulin Ratio 1.2 PTH Intact Whole Molec 1086 H Assessment & Plan (1) Pancytopenia Assessment and Plan: admitted with normal WBC; likely benign leukopenia will check hepatitis panel and monoclonal protein w/u anemia of CKD on ARACELI per renal agree with ruling out HIT given thrombocytopenia on heparin; heparin Ab sent. Will add serotonin release assay avoid heparin/lovenox for now if patient requires further anticoagulation, would recommend argatroban drip Status: Acute (2) AV fistula thrombosis Assessment and Plan: likely inflammation/trauma/stasis related rule out HIT in progress argatroban drip if requires further anticoagulation while awaiting HIT w/u Thank you for this interesting consult. Status: Acute
[2017-11-20 00:41] VITALS: RESP 16
[2017-11-20] MEDS: Levalbuterol 0.63 MG/3 ML Inhal Soln UD IH SCH ×3 (01:04→13:24)
[2017-11-20 05:28] VITALS: TEMP 98.5
[2017-11-20 07:15] LABS: HEMOGLOBIN 10.3 g/dL (12.0-16.0); MEAN CELL VOLUME 95.3 fl (80.0-105.0); MEAN CORPUSCULAR HEMOGLOBIN 30.2 pg (25.0-35.0); MEAN CORPUSCULAR HGB CONC 31.7 g/dl (31.0-37.0); MEAN PLATELET VOLUME 10.7 fl (7.0-11.0); RBC 3.41 10^6/uL (3.5-6.1); RED CELL DISTRIBUTION WIDTH 16.9 % (11.5-14.5); WHITE BLOOD COUNT 3.7 10^3/ul (4.5-11.0)
[2017-11-20 07:25] LABS: ALB/GLOB RATIO 1.1 (1.1-1.8); ALBUMIN 2.5 g/dL (3.0-4.8); BILIRUBIN,DIRECT 0.2 mg/dL (0.0-0.4); CALCIUM 6.1 mg/dL (8.4-10.5)
--- NOTE | 2017-11-20 09:34 | CP.PCM.PN ---
<Rakesh De Jesus - Last Filed: 11/20/17 13:43> Subjective - Date & Time of Evaluation Date of Evaluation: 11/20/17 Time of Evaluation: 09:34 - Subjective Subjective: aRkesh De Jesus PGY2 IM Progress Note for Dr. Dobbs Patient was seen and examined at bedside. There were no acute overnight events. The patient denies any abdominal pain, headaches, dizziness, weakness, nausea/vomiting/diarrhea, fever/chills, chest pain or shortness of breath. Dr. Jaguar Dobbs (IR) was contacted and he recommends no further workup, encourages use of fistula for HD, and recommends a follow-up fistulogram in 1 month. Surgery team is no longer following the patient. Objective - Vital Signs/Intake and Output Vital Signs (last 24 hours): Temp Pulse Resp BP Pulse Ox 98.5 F 65 16 124/62 97 11/20/17 05:27 11/20/17 05:28 11/20/17 05:27 11/20/17 05:27 11/20/17 05:27 Intake and Output: 11/20/17 11/20/17 06:59 18:59 Intake Total 540 Balance 540 - Medications Medications: Current Medications Acetaminophen (Tylenol 325mg Tab) 650 mg PO Q6H PRN PRN Reason: Pain, Mild (1-3) Aspirin (Ecotrin) 81 mg PO DAILY [facility] Last Admin: 11/19/17 09:20 Dose: 81 mg Atorvastatin Calcium (Lipitor) 20 mg PO DIN [facility] Last Admin: 11/19/17 17:01 Dose: 20 mg Benzonatate (Tessalon Perles) 200 mg PO TID [facility] Last Admin: 11/19/17 17:02 Dose: 200 mg Ezetimibe (Zetia) 10 mg PO DAILY [facility] Last Admin: 11/19/17 09:22 Dose: 10 mg Ergocalciferol (Drisdol 50,000 Intl Units Cap) 1 cap PO SAT [facility] Last Admin: 11/16/17 10:45 Dose: 1 cap Famotidine (Pepcid) 20 mg PO 1000 [facility] Last Admin: 11/19/17 09:22 Dose: 20 mg Folic Acid (Folic Acid) 1 mg PO DAILY [facility] Last Admin: 11/19/17 09:21 Dose: 1 mg Levalbuterol HCl (Xopenex) 0.63 mg IH [id number] [facility] Last Admin: 11/20/17 07:41 Dose: 0.63 mg Levothyroxine Sodium (Synthroid) 75 mcg PO DAILY [facility] Last Admin: 11/19/17 09:22 Dose: 75 mcg Metoprolol Tartrate (Lopressor) 25 mg PO BID [facility] Last Admin: 11/19/17 17:01 Dose: 25 mg Non-Formulary Medication (Linaclotide [Linzess]) 145 mcg PO DAILY [facility] Last Admin: 11/19/17 09:21 Dose: Not Given Polyethylene Glycol (Miralax) 17 gm PO BID [facility] Last Admin: 11/19/17 17:02 Dose: Not Given - Labs Labs: 11/20/17 06:00 11/20/17 06:00 PT 10.7 SECONDS (9.4-12.5) 11/18/17 06:20 INR 0.93 11/18/17 06:20 APTT 28.8 Seconds (25.1-36.5) 11/18/17 06:20 - Additional Findings Additional findings: - Constitutional Appears: Well, Non-toxic, No Acute Distress - Head Exam Head Exam: NORMAL INSPECTION - Eye Exam Eye Exam: EOMI, Normal appearance, PERRL - ENT Exam ENT Exam: Mucous Membranes Moist - Respiratory Exam Respiratory Exam: NORMAL BREATHING PATTERN. absent: Rales, Rhonchi, Wheezes - Cardiovascular Exam Cardiovascular Exam: RRR, +S1, +S2 - GI/Abdominal Exam GI & Abdominal Exam: Soft. absent: Distended, Tenderness - Extremities Exam Additional comments: left forearm fistula no active bleeding from right groin, dressing c/d/i; catheter removed - Back Exam Back Exam: NORMAL INSPECTION - Neurological Exam Neurological Exam: Alert, Awake, CN II-XII Intact, Oriented x3 - Psychiatric Exam Psychiatric exam: Normal Mood - Skin Skin Exam: Normal Color Assessment and Plan - Assessment and Plan (Free Text) Assessment: 57-year-old [place] female with a PMH of ESRD on HD (MWF), multiple episodes of thrombosed left radiocephalic AV fistula with prior stenting by Dr. Shun Abbott , nonischemic dilated cardiomyopathy with latest EF of < 30%, HTN, HLD, hypothyroidism, miliary TB, GERD and bronchial asthma who presented to the ED with symptoms of AV fistula swelling and pain, found to have a thrombosed left radiocephalic AV fistula from the distal forearm to elbow on duplex. IR performed thrombectomy on 11/15, but follow-up imaging on 11/16 showed persistent non-occlusive thrombus. Patient was on heparin drip but due to platelets dropping and suspected HIT, the patient was taken off the heparin, and workup is pending. The patient has improved clinically and is medically stable for discharge. Plan: 1. Thrombosed left radiocephalic AV fistula - s/p thrombectomy - due to suspected HIT, currently off heparin gtt - IR recommends f/u fistulogram after discharge in 1 month 2. HIT - plts have stabilized - heparin gtt off - heparin ab and serotonin release assay sent - Hematology consulted, recs appreciated 3. ESRD on HD - Dialysis MWF - Nephrology consulted, recs appreciated - temporary catheter was removed, continue using AVF - Monitor for any electrolyte abnormalities and supplement accordingly 4. Dizzinesss, resolved - MRI and carotid US were unremarkable 5. History of systolic dysfunction CHF - Cardiology consulted, recommendations appreciated - Continue ASA, lisinopril and Lopressor 6. History of HTN - Continue hydralazine and lisinopril 7. History of HLD - Continue Lipitor and Zetia 8. History of hypothyroidism - Continue Synthroid 9. History of asthma - Continue Xopenex 10. Prophylaxis - Start Pepcid daily - SCDs/heparin gtt Case was reviewed and discussed with attending, Dr. Dilia De Jesus PGY2 <Jose Dobbs U - Last Filed: 11/20/17 16:48> Objective - Vital Signs/Intake and Output Vital Signs (last 24 hours): Temp Pulse Resp BP Pulse Ox 98.5 F 72 16 130/71 97 11/20/17 05:27 11/20/17 13:26 11/20/17 05:27 11/20/17 13:26 11/20/17 05:27 Intake and Output: 11/20/17 11/20/17 06:59 18:59 Intake Total 540 Balance 540 - Labs Labs: 11/20/17 06:00 11/20/17 06:00 PT 10.7 SECONDS (9.4-12.5) 11/18/17 06:20 INR 0.93 11/18/17 06:20 APTT 28.8 Seconds (25.1-36.5) 11/18/17 06:20 Attending/Attestation - Attestation I have personally seen and examined this patient.: Yes I have fully participated in the care of the patient.: Yes I have reviewed all pertinent clinical information, including history, physical exam and plan: Yes Notes (Text): Please see/read my dictated notes.
--- NOTE | 2017-11-20 10:37 | VASCULAR ---
PROCEDURE: Date of procedure: 11/15/2017 Procedure: 1. Hemodialysis AV fistulagram, CPT 96114 2. Additional puncture, CPT 50840 3. Thrombectomy, CPT 07164 4. [employer] outflow cephalic vein stenosis, CPT 30542 5. The subclavian vein stenosis Medications: 2 milligram Versed, 100 microgram fentanyl. The patient sedated by the interventional radiology nurse along with physiologic monitoring, 5cc 2 percent lidocaine Contrast: 50 cubic centimeters Visipaque [id number] HISTORY: End-stage renal disease, thrombosed left arm AV fistula TECHNIQUE: Following informed consent and procedure time-out, the patient placed supine on the table and the left radiocephalic AV fistula was prepped and draped in the usual sterile fashion. 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 The fistula was accessed with micropuncture kit under ultrasound guidance. Per 6 Malian catheter, the [employer] catheter was advanced into the outflow vein and fistulogram performed. Fistulogram shows significant thrombus in the greater cephalic AV fistula, venous aneurysms. Outflow in the arm is via the basilic vein. . Central venogram showed moderate, 40 percent, subclavian vein stenosis. The fistula was then accessed with a 2nd puncture at directed towards toward the arterial anastomosis with micropuncture technique. The 5 Malian dilator was exchanged over an 035 wire for a 6 Malian vascular sheath. Stenotic cephalic vein stent in the forearm was treated with 7 interval millimeter balloon angioplasty. A 5.5 Malian Alisha compliant balloon was positioned low at the arterial venous anastomosis inflated and thrombus was pulled into the fistula. The Alisha compliant balloon reposition within the arterial and of the AV fistula inflated and portion centrally. Subclavian vein stenosis was treated with 10 millimeter balloon angioplasty. The pull-push technique was repeated for thrombectomy. There is presybeterian of flow fell throughout the fistula. An AV fistulogram was performed which showed good forward flow in AV fistula. Residual thrombus is noted within the venous aneurysms in the outflow cephalic vein. Thrombus was aspirated with a small catheter. The pole pushed technique was repeated for thrombectomy. Post thrombectomy and balloon angioplasty repeat fistulogram showed good forward flow throughout the AV fistula. There was no residual stenosis. Central venogram was normal. The two 6 Malian vascular sheaths were removed and hemostasis achieved with manual compression. A dressing was applied. A thrill was present at the completion of the case IMPRESSION: Successful left radiocephalic AV fistula thrombectomy. Outflow cephalic vein stent stenosis treatment with 7 mm x 4 cmballoon angioplasty with no residual stenosis. 40 percent subclavian vein stenosis treated with 10 millimeter balloon angioplasty.
[2017-11-20 12:41] LABS: HEPATITIS B SURFACE AG Negative (NEGATIVE)
[2017-11-20 12:47] LABS: HEPATITIS A IGM NEGATIVE (NEGATIVE); HEPATITIS B CORE AB NEGATIVE (NEGATIVE)
[2017-11-20 12:59] LABS: HEPATITIS C ANTIBODY NEGATIVE (NEGATIVE)
[2017-11-20] MEDS: Non Formulary Medication (Linaclotide [Linzess] 145 MCG) PO SCH (13:26)
[2017-11-20] MEDS: POLYETHYLENE GLYCOL 3350 17 GM/Dose PACKET PO SCH (13:26)
[2017-11-20] MEDS: Levothyroxine 75 MCG TAB PO SCH (13:27)
[2017-11-20 13:30] VITALS: BP 130/71; PULSE 72
--- NOTE | 2017-11-20 13:52 | CP.PCM.DIS ---
Provider - Provider Date of Admission: 11/14/17 14:00 Attending physician: Jose Dobbs MD Time Spent in preparation of Discharge (in minutes): 35 Hospital Course - Lab Results Lab Results: Most Recent Lab Values WBC 3.7 10^3/ul (4.5-11.0) L 11/20/17 06:00 RBC 3.41 10^6/uL (3.5-6.1) L 11/20/17 06:00 Hgb 10.3 g/dL (12.0-16.0) L 11/20/17 06:00 Hct 32.5 % (36.0-48.0) L 11/20/17 06:00 MCV 95.3 fl (80.0-105.0) 11/20/17 06:00 MCH 30.2 pg (25.0-35.0) 11/20/17 06:00 MCHC 31.7 g/dl (31.0-37.0) 11/20/17 06:00 RDW 16.9 % (11.5-14.5) H 11/20/17 06:00 Plt Count 113 10^3/uL (120.0-450.0) L 11/20/17 06:00 Manual Plt Count 135 K/mm3 (120-450) 11/20/17 06:00 MPV 10.7 fl (7.0-11.0) 11/20/17 06:00 Gran % 68.3 % (50.0-68.0) H 11/15/17 02:35 Lymph % (Auto) 19.5 % (22.0-35.0) L 11/15/17 02:35 Pope % (Auto) 6.7 % (1.0-6.0) H 11/15/17 02:35 Eos % (Auto) 5.3 % (1.5-5.0) H 11/15/17 02:35 Baso % (Auto) 0.2 % (0.0-3.0) 11/15/17 02:35 Gran # 3.36 (1.4-6.5) 11/15/17 02:35 Lymph # (Auto) 1.0 (1.2-3.4) L 11/15/17 02:35 Pope # (Auto) 0.3 (0.1-0.6) 11/15/17 02:35 Eos # (Auto) 0.3 (0.0-0.7) 11/15/17 02:35 Baso # (Auto) 0.01 K/mm3 (0.0-2.0) 11/15/17 02:35 Retic Count 1.78 % (0.5-1.5) H 11/20/17 06:00 PT 10.7 SECONDS (9.4-12.5) 11/18/17 06:20 INR 0.93 11/18/17 06:20 APTT 28.8 Seconds (25.1-36.5) 11/18/17 06:20 pO2 32 mm/Hg (30-55) 11/14/17 16:03 VBG pH 7.45 (7.32-7.43) H 11/14/17 16:03 VBG pCO2 49.0 (40-60) 11/14/17 16:03 VBG HCO3 34.1 mmol/l (21-28) H 11/14/17 16:03 VBG O2 Sat (Calc) 77.5 % (40-65) H 11/14/17 16:03 VBG Base Excess 8.6 mmol/L (0.0-2.0) H 11/14/17 16:03 Sodium 140 mmol/L (132-148) 11/20/17 06:00 Potassium 4.6 mmol/L (3.6-5.0) 11/20/17 06:00 Chloride 104 mmol/L (98-107) 11/20/17 06:00 Carbon Dioxide 28 mmol/L (21-33) 11/20/17 06:00 Anion Gap 13 (10-20) 11/20/17 06:00 BUN 20 mg/dL (7-21) 11/20/17 06:00 Creatinine 5.8 mg/dl (0.7-1.2) H 11/20/17 06:00 Est GFR ( Amer) 9 11/20/17 06:00 Est GFR (Non-Af Amer) 7 11/20/17 06:00 POC Glucose (mg/dL) 219 mg/dL (65-110) H 11/18/17 16:18 Random Glucose 80 mg/dL (70-110) 11/20/17 06:00 Calcium 6.1 mg/dL (8.4-10.5) L* 11/20/17 06:00 Phosphorus 3.9 mg/dL (2.5-4.5) 11/20/17 08:40 Magnesium 2.8 mg/dL (1.7-2.2) H 11/20/17 06:00 Ferritin 735.0 ng/mL 11/17/17 06:30 Total Bilirubin 0.4 mg/dL (0.2-1.3) 11/20/17 06:00 Direct Bilirubin 0.2 mg/dL (0.0-0.4) 11/20/17 06:00 AST 33 U/L (14-36) 11/20/17 06:00 ALT 30 U/L (7-56) 11/20/17 06:00 Alkaline Phosphatase 63 U/L (38-126) 11/20/17 06:00 Total Protein 4.8 g/dL (5.8-8.3) L 11/20/17 06:00 Albumin 2.5 g/dL (3.0-4.8) L 11/20/17 06:00 Globulin 2.3 gm/dL 11/20/17 06:00 Albumin/Globulin Ratio 1.1 (1.1-1.8) 11/20/17 06:00 25-OH Vitamin D Total 41 ng/mL (30-100) 11/15/17 05:25 PTH Intact Whole Molec 1086 pg/mL (14-64) H 11/17/17 06:30 Heparin-induced Plt Ab Negative (Negative) 11/17/17 06:30 Hepatitis A IgM Ab Negative (NEGATIVE) 11/20/17 06:00 Hep Bs Antigen Negative (NEGATIVE) 11/20/17 06:00 Hep Bs Antibody Positive (NEGATIVE) 11/20/17 06:00 Hep B Core IgM Ab Negative (NEGATIVE) 11/20/17 06:00 Hepatitis C Antibody Negative (NEGATIVE) 11/20/17 06:00 HIV 1&2 Ag/Ab, 4th Gen Nonreactive (Nonreactive) 11/15/17 05:25 Blood Type A POSITIVE 11/17/17 10:00 Antibody Screen Negative 11/17/17 10:00 Crossmatch See Detail 11/17/17 10:00 BBK History Checked Patient has bt 11/17/17 10:00 - Hospital Course Hospital Course: Ms. Casanova is a 57-year-old female with a PMH of ESRD on HD (MWF), multiple episodes of thrombosed left radiocephalic AV fistula with prior stenting by Dr. Shun Abbott, nonischemic dilated cardiomyopathy with latest EF of < 30%, HTN, HLD, hypothyroidism, miliary TB, GERD and bronchial asthma who presented to the ED with symptoms of AV fistula swelling and pain, found to have a thrombosed left radiocephalic AV fistula from the distal forearm to elbow on duplex. Surgery was consulted and placed a temporary dialysis catheter which was later removed. IR performed thrombectomy on 11/15, but follow -up imaging on 11/16 showed persistent non-occlusive thrombus. Patient was on heparin drip but due to platelets dropping and suspected HIT, the patient was taken off the heparin. Heparin-induced platelet antibody is negative, but serotonin release assay is pending. The patient underwent dialysis using the fistula with no problems. Hematology was consulted due to suspected HIT and pancytopenia; workup is pending. Dr. Dobbs, IR, was contacted regarding discharge instructions, and he recommended a 1 month follow-up fistulogram to evaluate the left forearm fistula for patency and function. PT evaluated the patient and she was optimized for discharge. The patient has improved clinically and is medically stable for discharge. Patient will follow-up with Dr. Dobbs in 1 week. Discharge Exam - Additional Findings Additional findings: - Constitutional Appears: Well, Non-toxic, No Acute Distress - Head Exam Head Exam: NORMAL INSPECTION - Eye Exam Eye Exam: EOMI, Normal appearance, PERRL - ENT Exam ENT Exam: Mucous Membranes Moist - Respiratory Exam Respiratory Exam: NORMAL BREATHING PATTERN. absent: Rales, Rhonchi, Wheezes - Cardiovascular Exam Cardiovascular Exam: RRR, +S1, +S2 - GI/Abdominal Exam GI & Abdominal Exam: Soft. absent: Distended, Tenderness - Extremities Exam Additional comments: left forearm fistula no active bleeding from right groin, dressing c/d/i; catheter removed - Back Exam Back Exam: NORMAL INSPECTION - Neurological Exam Neurological Exam: Alert, Awake, CN II-XII Intact, Oriented x3 - Psychiatric Exam Psychiatric exam: Normal Mood - Skin Skin Exam: Normal Color Discharge Plan - Discharge Medications Prescriptions: Calcium Acetate [Phoslo] 667 mg PO TID #270 tab - Follow Up Plan Condition: FAIR Disposition: HOME/ ROUTINE Instructions: Arteriovenous Fistula for Dialysis (DC), Fistulogram Additional Instructions: -DISCHARGE HOME AFTER CLEARED BY INTERVENTIONAL RADIOLOGY AND VASCULAR SURGERY - please follow-up with Dr. Dobbs in 1 week - please have a FISTULOGRAM done within 1 month of discharge - continue your home medications PER UPDATED AMBULATORY MEDS ORDERS. Referrals: Jaguar Dobbs MD [Staff Provider] - Jose Dobbs MD [Family Provider] - 1 Week (-DISCHARGE HOME AFTER CLEARED BY INTERVENTIONAL RADIOLOGY AND VASCULAR SURGERY please follow-up with Dr. Dobbs in 1 week - please have a FISTULOGRAM done within 1 month of discharge - continue your home medications PER UPDATED AMBULATORY MEDS ORDERS. )
--- NOTE | 2017-11-20 14:03 | PN ---
Copied To: Shun Rosa MD Attending MD: Shun Rosa MD DATE: 11/20/2017 CARDIOLOGY FOLLOWUP SUBJECTIVE: The patient is ambulating without symptoms. OBJECTIVE: VITAL SIGNS: Blood pressure 130/71, heart rate is in the 70s. NECK: Negative JVD. LUNGS: Without rales. HEART: Reveal S1, S2. EXTREMITIES: Without edema. DATA: Hemoglobin is 10.3. BUN and creatinine are 20 and 5.8. IMPRESSION: 1. End-stage renal disease. 2. Dilated cardiomyopathy. 3. Hypertension. 4. Dyspnea, which is now resolved. Given these findings, the patient is stable for discharge. Followup and instructions were given to the patient in detail. Shun Rosa MD
--- NOTE | 2017-11-20 14:32 | DS ---
Copied To: Jose Dobbs MD Attending MD: Jose Dobbs MD FINAL PROGRESS NOTE AND DISCHARGE SUMMARY HISTORY OF PRESENT ILLNESS: The patient is seen in dialysis unit. The patient denies any dizziness or falls. PHYSICAL EXAMINATION: VITAL SIGNS: T-max 98.8, 98.1; telemetry shows sinus rhythm, heart rate 65, 74, 73, 71; blood pressure 124/62, 123/66; respirations 16; O2 sat 97%. GENERAL: The patient was seen lying in the stretcher. HEENT: Head examination normocephalic, atraumatic. HEENT examination shows pink conjunctivae. Anicteric sclerae. No oropharyngeal lesion. No neck rigidity. CHEST: Kyphosis. LUNGS: Shows no rales, crackles or wheezing. CARDIOVASCULAR: S1, S2, regular rhythm. Questionable soft systolic murmur, left sternal border, right second intercostal space, left second intercostal space. ABDOMEN: Soft. Positive bowel sound. No hepatosplenomegaly noted. GENITALIA: Female. No costovertebral angle tenderness. EXTREMITIES: Lower extremity shows no pitting edema, no calf tenderness, no Juanita's signs. Upper extremity shows positive left upper extremity AV fistula, positive thrill, positive dialysis catheter connected. The patient is presently getting dialysis. PSYCHIATRIC: Negative. NEURO: Without any gross deficit. DIAGNOSTICS: On 11/20/2017, WBC 3.7, hemoglobin and hematocrit 10.3 and 32.5; platelets are 135. Retic count is 1.78. Sodium 140, potassium 4.6, chloride 104, CO2 of 28, anion gap 13, BUN 20, creatinine 5.8, GFR 9, glucose 80, calcium 6.1, phosphorus 3.9, magnesium 2.8. LFTs are normal. Total protein 4.8, albumin 2.5. HIV is nonreactive. The patient received 1 unit of PRBC. The patient's MRI and carotid ultrasound noted. FINAL IMPRESSION, PLAN AND DISCHARGE DIAGNOSES: 1. Left upper extremity arteriovenous fistula malfunction secondary to left upper extremity arteriovenous fistula radiocephalic thrombosis. 2. Symptomatic dizziness (resolved). 3. Hypertension. 4. End-stage renal disease, hemodialysis dependent. 5. Leukopenia, anemia, thrombocytopenia. 6. Questionable heparin-induced thrombocytopenia. 7. End-stage renal disease, hemodialysis dependent. 8. Non-hemolyzed hyperkalemia. 9. Hypocalcemia. 10. Hyperphosphatemia. 11. Protein malnutrition and hypoalbuminemia. 12. Secondary hyperparathyroidism with PTH level of 1086. 13. Status post packed red blood cell transfusion x1. 14. Bilateral 0-19% proximal internal carotid artery stenosis. 15. Left frontotemporal lobe encephalomalacia and subcortical encephalomalacia with microvascular changes. 16. Left upper extremity arteriovenous fistula mid forearm nonocclusive thrombus in an aneurysmal segment with aneurysmal segment of mid arteriovenous fistula with nonocclusive thrombus. 17. Cardiomegaly. 18. Left ventricular hypertrophy. 19. End-stage renal disease, hemodialysis dependent three times a week. 20. Nonischemic dilated cardiomyopathy. 21. History of hypothyroidism. 22. Hypocalcemia. 23. Secondary hyperparathyroidism. 24. Thrombosed left radiocephalic arteriovenous fistula. 25. Large venous aneurysm outflow cephalic vein thrombosis with in-stent stenosis outflow cephalic vein. 26. Status post left radiocephalic arteriovenous fistula thrombectomy, percutaneous transluminal angioplasty outflow vein stenosis and subclavian vein stenosis. 1. Severe symptomatic dizziness with questionable positive Romberg sign. 2. Left upper extremity arteriovenous fistula malfunction secondary to left upper extremity arteriovenous fistula radiocephalic thrombosis. 3. Nonischemic dilated cardiomyopathy. 4. End-stage renal disease, hemodialysis dependent three times a week via the left upper extremity arteriovenous fistula. 5. Hypertensive cardiovascular disease. 6. Pancytopenia, leukopenia, anemia, and thrombocytopenia. 7. Granulocytosis 8. Iatrogenic coagulopathy (resolved). 9. Non-hemolyzed hyperkalemia. 10. Protein malnutrition. 11. Hypoalbuminemia. 12. Hyperphosphatemia. 13. Left radiocephalic arteriovenous fistula thrombosis status post stenting. 14. History of abdominal tuberculosis. 15. Hypocalcemia. 16. Hypertension. 1. Left upper extremity arteriovenous fistula malfunction secondary to left upper extremity arteriovenous fistula radiocephalic thrombosis. 2. Nonischemic dilated cardiomyopathy. 3. End-stage renal disease, hemodialysis dependent three times a week via the left upper extremity arteriovenous fistula. 4. Hypertensive cardiovascular disease. 5. Status post hypotension. 6. Pancytopenia, leukopenia, anemia, thrombocytopenia. 7. Granulocytosis. 8. Iatrogenic coagulopathy. 9. Non-hemolyzed hyperkalemia. 10. Hyperphosphatemia. 11. Protein malnutrition and hypoalbuminemia. 12. Status post packed red blood cell transfusion x1. 13. Thrombosed left upper extremity radiocephalic arteriovenous fistula. 14. 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 15. Status post left radiocephalic arteriovenous fistula thrombectomy, percutaneous transluminal angioplasty of the outflow vein stenosis and subclavian vein stenosis. 16. History of hypertension, hyperlipidemia, hypothyroidism, hypovitaminosis D. 1. Left upper extremity radiocephalic arteriovenous fistula partial thrombosis from the distal forearm to the elbow without stenosis of the arterial anastomosis. 2. Hypertension. 3. Right groin femoral dialysis catheter site bleeding, status post removal of the right groin dialysis catheter. 4. Leukopenia, anemia, thrombocytopenia, and pancytopenia. 5. Granulocytosis. 6. Iatrogenic coagulopathy secondary to heparin. 7. End-stage renal disease, hemodialysis dependent. 8. Non-hemolyzed hyperkalemia. 9. Hypocalcemia. 10. Hyperphosphatemia. 11. Secondary hyperparathyroidism secondary to end-stage renal disease, hemodialysis dependent. 12. Protein malnutrition and hypoalbuminemia. 13. Nonischemic dilated cardiomyopathy. 14. Acute blood loss anemia secondary to right groin dialysis catheter bleeding. 15. Absent flow in the left basilic vein and cephalic vein. 16. Arteriovenous fistula malfunction. 17. 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 18. Status post left upper extremity radiocephalic arteriovenous fistula thrombectomy, percutaneous transluminal angioplasty of the outflow vein stenosis and subclavian vein stenosis. 1. Thrombosed left radiocephalic arteriovenous fistula from the distal forearm to the elbow without stenosis of the arterial anastomosis. 2. Hypertensive cardiovascular disease. 3. Hypertension. 4. Normocytic anemia. 5. End-stage renal disease, hemodialysis dependent. 6. Non-hemolyzed hyperkalemia. 7. Hypocalcemia. 8. Granulocytosis. 9. Left upper extremity pain and swelling secondary to acute left upper extremity arteriovenous fistula thrombosis. 10. Nonischemic dilated cardiomyopathy. 11. Hypothyroidism. 12. Hyperlipidemia. 13. Status post ultrasound-guided dialysis catheter placement. 14. History of constipation. Plan at this time, the patient will be considered for discharge after cleared by Interventional Radiology and Vascular Surgery. DISCHARGE FOLLOWUP: With Dr. Dobbs within 1 week. The patient is advised to schedule a fistulogram within 1 month. The patient's discharge followup is also with hemodialysis three times a week. DISCHARGE MEDICATIONS: The patient is to resume aspirin 81 mg daily, PhosLo 667 mg three times a day, Prolia 60 mg every 6 months, vitamin D 50,000 units weekly, Vytorin 10/40 daily, folic acid 1 mg daily, hydralazine 25 mg three times a day, Synthroid 75 mcg daily, Lopressor 25 mg daily, Renvela 800 mg 2 tablets three times a day. During the hospitalization, the patient was extensively explained about the details of her medical condition including all the details were explained to the patient's [id number], Jeffy Casanova. Time spent with the discharge process 45 minutes. Dictated and electronically signed, not read. Jose Dobbs MD MTDD
--- NOTE | 2017-11-20 16:10 | PN ---
Copied To: Deisy Tidwell MD Attending MD: Deisy Tidwell MD DATE: 11/20/2017 SUBJECTIVE: The patient is seen lying in bed. She is awake. She is alert. She is comfortable. She denies any chest pain. She denies any shortness of breath. Her left AV access was used for dialysis today. She complains of some pain in her right leg. PHYSICAL EXAMINATION: GENERAL: Elderly lady, lying in bed. VITAL SIGNS: Blood pressure 130/71, heart rate 72, respiratory rate 16, temperature 98.5. HEENT: Normocephalic, atraumatic, positive pallor. NECK: Supple. No JVD. LUNGS: Bilateral equal air entry, bilateral equal expansion, basilar rales. CARDIAC: S1 and S2, regular rate and rhythm, no murmur, no rub. ABDOMEN: Soft, nondistended, nontender, bowel sounds present. EXTREMITIES: No lower extremity edema. INTAKE AND OUTPUT: Not charted. LABORATORY DATA: WBC 3.7, hemoglobin 10.3, hematocrit 32.5, platelets 113. Sodium 140, potassium 4.6, chloride 104, CO2 of 28, BUN 20, creatinine 5.8, glucose 80, calcium 6.1, phosphorus 4, magnesium 2.8, intact PTH 1086. CURRENT MEDICATIONS: Vitamin D 50,000 units, Ecotrin, folic acid, Linzess, Lipitor, Lopressor, MiraLax, Pepcid, Synthroid, Tylenol, Xopenex, Zetia. ASSESSMENT: 1. Status post clotted arteriovenous access, status post thrombectomy. 2. Hypocalcemia, severe secondary hyperparathyroidism. 3. Anemia of chronic kidney disease. 4. Hypertension. 5. End-stage renal disease. 6. Hypertensive heart disease/congestive heart failure. PLAN: 1. Stable dialysis today, AV fistula with no problems on dialysis. 2. Thrombocytopenia, improving platelet count, HIT workup in progress. 3. Blood pressure well controlled. 4. No indication for phosphate binder at this time, phosphorus is only 3.9. 6. Hold Sensipar since calcium is only 6.1. 7. Increase vitamin D on dialysis. Deisy Tidwell MD [facility] # [id number]
== END 2017-11-20 15:14 | disposition home or self-care (01) | DRG 252 ==
LOC: ED 08:46 → ERH 14:00 → 5RSO 18:47 → 2RNO 11-15 08:32
PROVIDERS: ADMIT Internal Medicine; ATTEND Internal Medicine
PROC: 06HY33Z Insertion of Infusion Device into Lower Vein, Percutaneous Approach (ICD-10-PCS; 2017-11-14)
PROC: 05CF3ZZ Extirpation of Matter from Left Cephalic Vein, Percutaneous Approach (ICD-10-PCS; principal; 2017-11-15)
PROC: 057F3ZZ Dilation of Left Cephalic Vein, Percutaneous Approach (ICD-10-PCS; 2017-11-15)
PROC: B51WYZZ Fluoroscopy of Dialysis Shunt/Fistula using Other Contrast (ICD-10-PCS; 2017-11-15)
PROC: 5A1D70Z Performance of Urinary Filtration, Intermittent, Less than 6 Hours Per Day (ICD-10-PCS; 2017-11-16)
PROC: 30233N1 Transfusion of Nonautologous Red Blood Cells into Peripheral Vein, Percutaneous Approach (ICD-10-PCS; 2017-11-17)
PROC: 5A1D70Z Performance of Urinary Filtration, Intermittent, Less than 6 Hours Per Day (ICD-10-PCS; 2017-11-18)
PROC: 5A1D70Z Performance of Urinary Filtration, Intermittent, Less than 6 Hours Per Day (ICD-10-PCS; 2017-11-20)
DX: T82.868A Thrombosis due to vascular prosthetic devices, implants and grafts, initial encounter (principal); N18.6 End stage renal disease; I42.0 Dilated cardiomyopathy; N25.81 Secondary hyperparathyroidism of renal origin; I13.2 Hypertensive heart and chronic kidney disease with heart failure and with stage 5 chronic kidney disease, or end stage renal disease; I50.22 Chronic systolic (congestive) heart failure; D61.818 Other pancytopenia; I87.1 Compression of vein; D62 Acute posthemorrhagic anemia; E46 Unspecified protein-calorie malnutrition; E78.00 Pure hypercholesterolemia, unspecified; I27.20 Pulmonary hypertension, unspecified; E87.5 Hyperkalemia; E83.51 Hypocalcemia; I25.10 Atherosclerotic heart disease of native coronary artery without angina pectoris; D63.1 Anemia in chronic kidney disease; T82.838A Hemorrhage due to vascular prosthetic devices, implants and grafts, initial encounter; T45.515A Adverse effect of anticoagulants, initial encounter; Z99.2 Dependence on renal dialysis; K21.9 Gastro-esophageal reflux disease without esophagitis; Y83.2 Surgical operation with anastomosis, bypass or graft as the cause of abnormal reaction of the patient, or of later complication, without mention of misadventure at the time of the procedure; I08.1 Rheumatic disorders of both mitral and tricuspid valves; E03.9 Hypothyroidism, unspecified; J45.909 Unspecified asthma, uncomplicated; I65.23 Occlusion and stenosis of bilateral carotid arteries; K59.00 Constipation, unspecified; E55.9 Vitamin D deficiency, unspecified; M81.0 Age-related osteoporosis without current pathological fracture; E78.5 Hyperlipidemia, unspecified; Z68.21 Body mass index [BMI] 21.0-21.9, adult; Z86.11 Personal history of tuberculosis

== ENCOUNTER 2018-02-18 09:47 | Day surgery (SDC) | payer MEDICARE, BC ==
[2018-02-14 13:50] VITALS: BMI 26.9
[2018-02-18 10:54] LABS: BASO % 0.2 % (0.0-3.0); EOS % 2.5 % (1.5-5.0); GRAN # 3.1 (1.4-6.5); GRAN % 65.7 % (50.0-68.0); HEMOGLOBIN 11.1 g/dL (12.0-16.0); LYMPH # 1.2 (1.2-3.4); LYMPH % 24.4 % (22.0-35.0); MEAN CELL VOLUME 98.6 fl (80.0-105.0); MEAN CORPUSCULAR HEMOGLOBIN 30.4 pg (25.0-35.0); MEAN CORPUSCULAR HGB CONC 30.8 g/dl (31.0-37.0); MEAN PLATELET VOLUME 12.3 fl (7.0-11.0); MONO # 0.3 (0.1-0.6); MONO % 7.2 % (1.0-6.0); RBC 3.65 10^6/uL (3.5-6.1); RED CELL DISTRIBUTION WIDTH 15.8 % (11.5-14.5); WHITE BLOOD COUNT 4.7 10^3/uL (4.5-11.0)
[2018-02-18 10:55] LABS: BASO # 0.01 K/mm3 (0.0-2.0); EOS # 0.1 (0.0-0.7)
[2018-02-18 10:59] LABS: INR 0.87; PARTIAL THROMBOPLASTIN TIME 30.2 Seconds (25.1-36.5)
[2018-02-18 11:18] LABS: CALCIUM 9.7 mg/dL (8.4-10.5)
[2018-02-18] MEDS ORDERED: Iodixanol 320 mg/ml 150 ml Bottle IV ONE (12:39)
[2018-02-18] MEDS ORDERED: Lidocaine 2% Inj (20ml) ONE (12:39)
[2018-02-18] MEDS ORDERED: Midazolam 2 MG/2 ML VIAL ONE ×2 (12:51→13:16)
[2018-02-18] MEDS ORDERED: Nitroglycerin 50mg in D5W 50 MG/250 ML BOTTLE IV ONE (13:11)
[2018-02-18] MEDS ORDERED: Oxycodone/Acetaminophen 5/325 mg Tab PO PRN (13:41)
[2018-02-18 14:39] VITALS: RESP 20; TEMP 97.8; O2SAT 98
[2018-02-18 15:31] VITALS: BP 119/67; PULSE 68
--- NOTE | 2018-02-18 19:21 | VASCULAR ---
PROCEDURE: 1. Left upper extremity AV fistula angiogram 2. Venous angioplasty HISTORY: End-stage renal disease. Malfunctioning AV access PHYSICIAN(S): Shun Abbott MD. TECHNIQUE: The relative risks and indications of the procedure were explained to the patient and consent obtained. The patient was placed supine on the angiography table and the left arm prepped and draped in usual sterile fashion. Conscious sedation and monitoring provided throughout the procedure by a nurse. Under ultrasound guidance, the left forearm AV fistula was punctured near the wrist with a micropuncture set. A 5 [place] catheter was placed. An overlapping left upper extremity AV fistula angiogram was performed. A 6 [place] sheath was placed at the puncture site. The stenosis in the left median antecubital vein was dilated with 7 and 8 mm balloons. A good angiographic result was obtained. No stent was required. The sheath was removed hemostasis obtained with a purse string suture. The patient tolerated the procedure well. FINDINGS: There is a left radial-cephalic fistula near the wrist. Two pseudoaneurysms are seen in the proximal fistula. Overlapping self expanding stents are seen in the left cephalic vein in the forearm. The stents are patent. The fistula drains via the left median antecubital vein into a large left basilic system. There is a 5 cm moderate to severe tapered stenosis of the left median antecubital vein. This was successfully dilated with 7 and 8 mm balloons. The left axillary vein, left subclavian vein, left innominate vein, and SVC are widely patent. IMPRESSION: 1. Successful venous angioplasty of the left median antecubital vein. 2. Patent central veins. 3. Patent left forearm venous stents.
== END 2018-02-18 16:00 | disposition home or self-care (01) ==
LOC: SDSVAS 09:47
PROVIDERS: ATTEND Radiology Vascular & Interventional Radiology
DX: T82.590A Other mechanical complication of surgically created arteriovenous fistula, initial encounter (principal); N18.6 End stage renal disease; I13.2 Hypertensive heart and chronic kidney disease with heart failure and with stage 5 chronic kidney disease, or end stage renal disease; I50.9 Heart failure, unspecified; E03.9 Hypothyroidism, unspecified; D64.9 Anemia, unspecified; E78.5 Hyperlipidemia, unspecified; K21.9 Gastro-esophageal reflux disease without esophagitis
CPT/HCPCS: 36415; 36902; 80048; 85025; 85610; 85730; 99152; 99153; C1725 ×2; C1769 ×2; C1894; J1644; J2250; J2405; J3010; Q9967

== ENCOUNTER 2018-06-04 09:09 | Outpatient (CLI) | payer MEDICARE, BC, MEDICAID | END 2018-06-04 09:10 | disposition home or self-care (01) | LOC: RAD 09:09 ==

== ENCOUNTER 2018-06-20 09:02 | Outpatient (CLI) | payer MEDICARE, BC, MEDICAID | END 2018-06-20 09:03 | disposition home or self-care (01) | LOC: CARDIO 09:02 ==